=== PATIENT | male | born 1940 | race Caucasian/White ===

== ENCOUNTER 2018-04-02 18:02 | Outpatient (CLI) | payer MEDICARE, OTHER ==
--- NOTE | 2018-04-03 14:48 | Ultrasound Report ---
Procedure Date: 04/02/2018 Accession Number: [id number] / [id number] Procedure: US - Ankle Brachial Index CPT Code: FULL RESULT: EXAM: ANKLE-BRACHIAL INDICES EXAM DATE: 04/02/2018 06:42 PM. CLINICAL HISTORY: Vascular claudication. COMPARISON: None. TECHNIQUE: Systolic blood pressure measurements of bilateral brachial and posterior tibial arteries. Spectral Doppler ultrasound of bilateral posterior tibial and dorsalis pedis arteries. FINDINGS: RIGHT: HORTICULTURAL WORKER: PSV 78.4, biphasic waveform. DPA: PSV 102, biphasic waveform. Systolic pressures: Brachial Artery: 159/87. Post Tibial Artery: 173/79. Ankle/Arm Index: 1.02 LEFT: HORTICULTURAL WORKER: PSV 49, biphasic waveform. DPA: PSV 52, biphasic waveform. Systolic pressures: Brachial Artery: 177/79. Post Tibial Artery: 176/78. Ankle/Arm Index: 1.0 IMPRESSION: Normal bilateral ankle brachial indices. RADIA
== END 2018-04-02 18:03 | disposition home or self-care (01) ==
LOC: DI 18:02
PROVIDERS: ATTEND Internal Medicine
DX: I87.8 Other specified disorders of veins (principal)
CPT/HCPCS: 93922

== ENCOUNTER 2018-04-20 16:52 | Emergency (ER) | payer MEDICARE, OTHER ==
--- NOTE | 2018-04-20 17:37 | XRAY Report ---
Procedure Date: 04/20/2018 Accession Number: [id number] / [id number] Procedure: XR - Knee 3 View RT CPT Code: FULL RESULT: EXAM: RIGHT KNEE RADIOGRAPHY EXAM DATE: 04/20/2018 05:11 PM. CLINICAL HISTORY: Fall with pain and swelling to knee. COMPARISON: KNEE 3 VIEW RT 04/16/2013. TECHNIQUE: 3 views. FINDINGS: Bones: No fracture or focal bony lesion. Joints: No evidence of dislocation. 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 There is chondrocalcinosis. There is a chronic-appearing suprapatellar joint effusion. Soft Tissues: No unexpected soft tissue findings. IMPRESSION: 1. No evidence of fracture or dislocation. 2. 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 3. There is chondrocalcinosis. RADIA
--- NOTE | 2018-04-20 17:40 | XRAY Report ---
Procedure Date: 04/20/2018 Accession Number: [id number] / [id number] Procedure: XR - Ribs w/PA Chest LT CPT Code: FULL RESULT: EXAM: LEFT RIB RADIOGRAPHY EXAM DATE: 04/20/2018 05:29 PM. CLINICAL HISTORY: Fall with pain. COMPARISON: None. TECHNIQUE: 1 view of the chest and 2 views of the ribs. FINDINGS: Bones: No fracture or bone lesion. Lungs: No focal opacities. No pneumothorax. No pleural effusions. Mediastinum: Heart and mediastinal contours are unremarkable. Other: None. IMPRESSION: Negative chest and rib radiography. RADIA
[2018-04-20] MEDS ORDERED: TETANUS/DIPHTHERIA/PERTUSSIS 0.5 ML SYRINGE IM ONE (18:38)
[2018-04-20] MEDS ORDERED: HYDROcod/ACETAM 5/325 MG TABLET PO STA (18:38)
--- NOTE | 2018-04-20 18:43 | ED Physician Documentation ---
PD HPI MAJOR TRAUMA - Stated complaint Stated Complaint: GLF/BODY PX - Chief complaint Chief Complaint: Trauma Ch/Bk - History obtained from History obtained from: Patient, Family - History of Present Illness Mechanism of injury: Fell (He was on his deck today and fell through a deck board and then keeled forward hitting his left upper quadrant and left anterior chest wall on a flower pot and also his right knee which has chronic problems in it.) Review of Systems Constitutional: reports: Reviewed and negative Cardiac: reports: Reviewed and negative Respiratory: reports: Reviewed and negative PD PAST MEDICAL HISTORY - Past Medical History Cardiovascular: Hypertension Respiratory: CPAP use, Other Endocrine/Autoimmune: None GI: Diverticulitis : Benign prostate hypertrophy HEENT: None, Dental implants Psych: None Musculoskeletal: None Derm: None - Past Surgical History Past Surgical History: Yes General: Bowel surgery Ortho: Knee replacement, Shoulder arthroplasty Derm: Other - Present Medications Home Medications: Ambulatory Orders Medication Instructions Recorded Confirmed Doxazosin [Cardura] 4 mg PO DAILY 03/05/15 03/08/15 Oxycodone HCl/Acetaminophen 1 mg PO DAILY 03/08/15 03/08/15 [Oxycodone-Acetaminophen 5-325] HYDROcod/ACETAM 5/325 [Clinton 5/325] 1 - 2 ea PO Q6H PRN #10 tablet 04/20/18 - Allergies Allergies/Adverse Reactions: Allergies Allergy/AdvReac Type Severity Reaction Status Date / Time No Known Drug Allergies Allergy Verified 04/20/18 17:02 - Social History Does the pt smoke?: No Smoking Status: Never smoker Does the pt drink ETOH?: Yes Does the pt have substance abuse?: No - Immunizations Immunizations are current?: Yes - POLST Patient has POLST: No PD ED PE NORMAL - Vitals Vital signs reviewed: Yes - General General: Alert and oriented X 3, No acute distress - HEENT HEENT: PERRL, EOMI - Neck Neck: Supple, no meningeal sign, No bony TTP - Cardiac Cardiac: RRR, No murmur - Respiratory Respiratory: No respiratory distress, Clear bilaterally - Abdomen Abdomen: Other (He has mild lower rib tenderness on the right, but nothing focal. He is tender in the left upper quadrant without guarding or rebound.) - Back Back: No CVA TTP, No spinal TTP - Derm Derm: Normal color, Warm and dry - Extremities Extremities: Other (He has a shallow skin tear over the left elbow without tenderness or limited range of motion. The right knee has an effusion, but he says that is chronic and there is some mild anterior tenderness there.) - Neuro Neuro: Alert and oriented X 3, Normal speech Results - Vitals Vitals: Vital Signs - 24 hr 04/20/18 16:57 Temperature 37 C Heart Rate 78 Respiratory 18 Rate Blood Pressure 144/69 H O2 Saturation 98 Oxygen O2 Source Room air - Labs Labs: Laboratory Tests 04/20/18 04/20/18 18:49 18:49 WBC 2.6 L RBC 3.90 L Hgb 14.0 Hct 40.4 L MCV 103.7 H MCH 35.9 H MCHC 34.6 RDW 14.2 Plt Count 90 L MPV 8.1 Neut # (Auto) Not Reportable Lymph # (Auto) Not Reportable [place] # (Auto) Not Reportable Eos # (Auto) Not Reportable Baso # (Auto) Not Reportable Absolute Nucleated RBC Not Reportable Total Counted 100 Band Neuts % (Manual) 1 Abnorm Lymph % (Manual) 0 Nucleated RBC % Not Reportable Neutrophils # (Manual) 1.8 Lymphocytes # (Manual) 0.6 L Monocytes # (Manual) 0.1 Eosinophils # (Manual) 0.1 Basophils # (Manual) 0.0 Differential Comment MANUAL DIFFERENTIAL Manual Slide Review Indicated WBC Morphology NORMAL APPEARANCE Platelet Estimate DECREASED (<130,000) Platelet Morphology NORMAL APPEARANCE RBC Morph Micro Appear 2+ MACROCYTOSIS Sodium 139 Potassium 4.0 Chloride 108 Carbon Dioxide 23 Anion Gap 8.0 BUN 29 H Creatinine 1.1 Estimated GFR (MDRD) 65 L Glucose 115 H Calcium 9.5 Total Bilirubin 1.5 H AST 27 ALT 21 Alkaline Phosphatase 76 Total Protein 7.0 Albumin 4.5 Globulin 2.5 Albumin/Globulin Ratio 1.8 Lipase 25 - Rads (name of study) Left rib and chest x-ray Radiology: EMP read contemporaneously (Negative) 3 views of the right knee Radiology: EMP read contemporaneously (No fracture dislocation, there is advanced degenerative disease and chondrocalcinosis.) CT A/P Radiology: EMP read contemporaneously (NAD) PD MEDICAL DECISION MAKING - ED course ED course: 78-year-old gentleman with chest and upper abdominal injuries after fall, also the right knee. Relevant x-rays were negative but he did have persistent tenderness in the abdomen and CT scan was done to rule out Solid organ injury which was negative. Does noted to have chronic thrombocytopenia/leukopenia which is undergoing workup with his physician. - Sepsis Event Vital Signs: Vital Signs - 24 hr 04/20/18 16:57 Temperature 37 C Heart Rate 78 Respiratory 18 Rate Blood Pressure 144/69 H O2 Saturation 98 Oxygen O2 Source Room air Departure - Departure Disposition: 01 Home, Self Care Clinical Impression: Thrombocytopenia Contusion of chest wall Qualifiers: Encounter type: initial encounter Laterality: left Qualified Code(s): S20.212A - Contusion of left front wall of thorax, initial encounter Contusion of right knee Qualifiers: Encounter type: initial encounter Qualified Code(s): S80.01XA - Contusion of right knee, initial encounter Abdominal wall contusion Qualifiers: Encounter type: initial encounter Qualified Code(s): S30.1XXA - Contusion of abdominal wall, initial encounter Leukopenia Qualifiers: Leukopenia type: unspecified Qualified Code(s): D72.819 - Decreased white blood cell count, unspecified Condition: Good Record reviewed to determine appropriate education?: Yes Instructions: ED Contusion Soft Tissue, ED Contusion Chest Wall Prescriptions: HYDROcod/ACETAM 5/325 [Clinton 5/325] 1 - 2 ea PO Q6H PRN #10 tablet PRN Reason: Pain Comments: Call your doctor to arrange a follow-up appointment, make the next available appointment. In the interim, return anytime if worse or if new symptoms develop. Do not drink or drive while taking narcotic pain medication. Note that many narcotic pain relievers also contain Tylenol/acetaminophen. Please ensure that your total dose of acetaminophen from all sources does not exceed 3 g (3000 mg) per day. You may get constipated while on this medication. Take a stool softener such as Colace twice a day while you are on it. Also add an [id number] laxative such as senna or MiraLAX on any day that you do not have a bowel movement. If you received a narcotic pain medication or sedative while in the emergency department, do not drive for the next 24 hours. Your blood pressure was elevated today on check into the emergency department. This does not mean that you have hypertension, it is a common phenomenon to come to the emergency department and have elevated blood pressure. I recommend that you see your primary care physician within the week to have it rechecked when you are feeling better.
[2018-04-20 18:54] LABS: BASOPHILS % (AUTO) 0.4 %; EOSINOPHILS % (AUTO) 1.5 %; LYMPHOCYTES % (AUTO) 29.9 %; MEAN CORPUSCULAR HEMOGLOBIN 35.9 pg (27.0-31.0); MEAN CORPUSCULAR HGB CONC 34.6 g/dL (32.0-36.0); MEAN CORPUSCULAR VOLUME 103.7 fL (80.0-94.0); MEAN PLATELET VOLUME 8.1 fL (7.4-11.4); MONOCYTES % (AUTO) 3.2 %; PLT - PLATELET COUNT 90 10^3/uL (130-450); RED CELL DISTRIBUTION WIDTH 14.2 % (12.0-15.0); WHITE BLOOD COUNT 2.6 x10^3/uL (4.8-10.8)
[2018-04-20 19:00] LABS: ABNORMAL LYMPHS % (MANUAL) 0 %
[2018-04-20 19:05] LABS: ALBUMIN 4.5 g/dL (3.2-5.5); ALBUMIN/GLOBULIN RATIO 1.8 (1.0-2.2); BILIRUBIN,TOTAL 1.5 mg/dL (0.2-1.0); CALCIUM 9.5 mg/dL (8.5-10.3); CREATININE 1.1 mg/dL (0.6-1.2)
[2018-04-20 19:14] LABS: BAND NEUTROPHILS % (MANUAL) 1 %; EOSINOPHILS # (MANUAL) 0.1 10^3/uL (0-0.7); LYMPHOCYTES # (MANUAL) 0.6 10^3/uL (1.5-3.5); LYMPHOCYTES % (MANUAL) 24 %; MONOCYTES # (MANUAL) 0.1 10^3/uL (0.0-1.0); NEUTROPHILS # (MANUAL) 1.8 10^3/uL (1.5-6.6); NEUTROPHILS % (MANUAL) 70 %
[2018-04-20 19:15] LABS: DIFFERENTIAL COMMENT MANUAL DIFFERENTIAL; PLATELET ESTIMATE, MANUAL DECREASED (<130,000) (NORMAL); PLATELET MORPHOLOGY NORMAL APPEARANCE (NORMAL); RBC MORPHOLOGY (MULTIPLE) 2+ MACROCYTOSIS (NORMAL)
[2018-04-20] MEDS ORDERED: IOPAMIDOL-300 100 ML VIAL ONE (19:52)
[2018-04-20] MEDS ORDERED: IOPAMIDOL-300 100 ML VIAL IVP ONE (20:06)
[2018-04-20] MEDS ORDERED: HYDROcod/ACET 5/325 Prepack 4 PO STA (20:21)
--- NOTE | 2018-04-20 20:26 | CT Report ---
Procedure Date: 04/20/2018 Accession Number: [id number] / [id number] Procedure: CT - Abdomen/Pelvis W/ CPT Code: FULL RESULT: EXAM: CT ABDOMEN AND PELVIS EXAM DATE: 04/20/2018 08:04 PM. CLINICAL HISTORY: IV only, trauma, LUQ PAin. COMPARISONS: ABDOMEN/PELVIS W/ 03/05/2015 6:36 AM. TECHNIQUE: Routine helical CT imaging was performed through the abdomen and pelvis. IV contrast: ISOVUE 300 100mL. Enteric contrast: No. Reconstructions: Coronal and sagittal. In accordance with CT protocol optimization, one or more of the following dose reduction techniques were utilized for this exam: automated exposure control, adjustment of mA and/or KV based on patient size, or use of iterative reconstructive technique. FINDINGS: Lung Bases: Unremarkable. Liver: Stable fluid density focus within the right hepatic lobe may represent a small cyst. Gallbladder/Bile Ducts: The gallbladder is surgically absent. No significant bile duct dilatation. Spleen: Normal. Pancreas: Normal. Adrenal Glands: Normal. Kidneys: Normal. No masses or hydronephrosis. Peritoneal Cavity/Bowel: No dilated or thick-walled bowel is seen. No intraperitoneal free air or free fluid. No enlarged mesenteric or retroperitoneal lymph nodes. There is colonic diverticulosis. Patient has undergone anterior abdominal wall hernia repair. The appendix is well visualized and normal. Pelvic Organs: There is a posterior left bladder diverticulum. There is a fat-containing left inguinal hernia. No acute pelvic abnormalities are seen. Vasculature: No aneurysms or other significant abnormality. Bones: No significant abnormality. Other: None. IMPRESSION: No evidence of acute traumatic injury to the abdomen or pelvis. RADIA
[2018-04-20 20:32] VITALS: BP 149/68
== END 2018-04-20 20:40 | disposition home or self-care (01) ==
LOC: ED 16:52
DX: S80.01XA Contusion of right knee, initial encounter (principal); W17.89XA Other fall from one level to another, initial encounter; S20.212A Contusion of left front wall of thorax, initial encounter; S50.902A Unspecified superficial injury of left elbow, initial encounter; D69.6 Thrombocytopenia, unspecified; D72.819 Decreased white blood cell count, unspecified
CPT/HCPCS: 36415; 71101; 73562; 74177; 80053; 83690; 85025; 90715; 99283; A9270; Q9967

== ENCOUNTER 2018-11-14 15:42 | Outpatient (CLI) | payer MEDICARE, OTHER | END 2018-11-14 15:43 | disposition home or self-care (01) | LOC: LAB 15:42 | PROVIDERS: ATTEND Surgery | DX: R89.8 Other abnormal findings in specimens from other organs, systems and tissues (principal); D61.818 Other pancytopenia | CPT/HCPCS: 36415; 81599; 88184; 88185; 88189 ==

== ENCOUNTER 2018-11-23 06:09 | Day surgery (SDC) | payer MEDICARE, OTHER ==
[2018-11-23] MEDS ORDERED: LACTATED RINGERS 1,000 ML IV ONE ×2 (06:35→08:23)
--- NOTE | 2018-11-23 07:00 | ANESTHESIA ---
Pre-Anesthesia VS, & Labs - Diagnosis acute myeloid leukemia - Procedure Bone marrow biopsy Vital Signs: Temp Pulse Resp BP Pulse Ox 36.4 C L 68 16 153/75 H 97 11/23/18 06:35 11/23/18 06:35 11/23/18 06:35 11/23/18 06:35 11/23/18 06:35 Height 5 ft 11 in Weight (kg) 93 kg Body Mass Index 28.8 - NPO >8 hours Home Medications and Allergies Home Medications: Ambulatory Orders Cholecalciferol (Vitamin D3) [Vitamin D] 2,000 unit PO DAILY 11/21/18 Copper 2 mg PO DAILY 11/21/18 Cyanocobalamin (Vitamin B-12) [Vitamin B-12 (100mcg tab)] 100 mcg PO DAILY 11/21/18 Multivitamin [Multiple Vitamins] 1 each PO DAILY 11/21/18 Doxazosin [Cardura] 4 mg PO DAILY 03/05/15 Cholecalciferol (Vitamin D3) [Vitamin D] 2,000 unit PO DAILY 11/21/18 Copper 2 mg PO DAILY 11/21/18 Cyanocobalamin (Vitamin B-12) [Vitamin B-12 (100mcg tab)] 100 mcg PO DAILY 11/21/18 Multivitamin [Multiple Vitamins] 1 each PO DAILY 11/21/18 Allergies/Adverse Reactions: Allergies Allergy/AdvReac Type Severity Reaction Status Date / Time No Known Drug Allergies Allergy Verified 04/20/18 17:02 Anes History & Medical History - Anesthetic History Anesthesia Complications: reports: No previous complications Family history of Anesthesia Complications: Denies Family history of Malignant Hyperthermia: Denies - Medical History Cardiovascular: reports: Hypertension Pulmonary: reports: Sleep apnea, CPAP use Gastrointestinal: reports: Diverticulitis Urinary: reports: Benign prostate hypertrophy Musculoskeletal: reports: None Endocrine/Autoimmune: reports: None Blood Disorders: reports: None Skin: reports: None Smoking Status: Never smoker - Surgical History General: Bowel surgery Orthopedic: Knee replacement, Shoulder arthroplasty, Spine surgery Dermatologic: Other Exam General: Alert, Oriented x3, Cooperative Dental: WNL Mouth Openin Fingerbreadth Neck Mobility: Normal Mallampati classification: II Respiratory: Lungs clear, Normal breath sounds Cardiovascular: Regular rate Mental/Cognitive Status: Alert/Oriented X3 Plan Anesthesia Type: MAC Consent for Procedure(s) Verified and Reviewed: Yes Code Status: Attempt Resuscitation ASA classification: 3-Severe systemic disease Is this case an emergency?: No
[2018-11-23] MEDS ORDERED: BUPIVACAINE 0.25%-EPI 1:200000 PF 30 ML VIAL ONE (07:13)
[2018-11-23] MEDS ORDERED: LIDOCAINE 1% 50 ML MDV ONE (07:13)
[2018-11-23] MEDS ORDERED: KETAMINE 500 MG/10 ML VIAL IVP ONE (07:30)
[2018-11-23] MEDS ORDERED: MIDAZOLAM 2 MG/2 ML VIAL IVP ONE (07:30)
--- NOTE | 2018-11-23 07:39 | SURGERY HX AND PHYSICAL(T) ---
Surgical History & Physical - Chief Complaint/HPI Chief Complaint: None - patient is being worked up for hematologic disease History of Present Illness: This very pleasant 78-year-old male returns for repeat bone marrow aspiration/biopsy as the previous biopsy that I performed as well as the pe ripheral flow cytometry were nondiagnostic for any disease. I have been asked to repeat the core biopsy as the previous aspiration was dry. I will attempt aspirating at the sternum to see if I can obtain bone marrow in a different location and if this does not work then I will proceed with core biopsies. The patient is essentially asymptomatic and nothing is changed since last time that I seen him. - PMH/PSH/Social Hx Does the pt have a hx of MRSA?: No Eyes, Ears, Nose, Throat: Dental implants Cardiovascular: Hypertension Respiratory: Sleep apnea, CPAP use Skin: None Endocrine/Autoimmune: None Gastrointestinal: Diverticulitis Urinary: Benign prostate hypertrophy Musculoskeletal: None Blood Disorders: None Psychiatric: None General: Bowel surgery Orthopedic: Knee replacement, Shoulder arthroplasty, Spine surgery Dermatologic: Other Smoking Status: Never smoker Does the pt drink ETOH?: Yes Does the pt have substance abuse?: No - Family Hx Family Hx: Other (Not asked.) - Home Meds and Allergies Home Medications: Doxazosin [Cardura] 4 mg PO DAILY 03/05/15 Cholecalciferol (Vitamin D3) [Vitamin D] 2,000 unit PO DAILY 11/21/18 Copper 2 mg PO DAILY 11/21/18 Cyanocobalamin (Vitamin B-12) [Vitamin B-12 (100mcg tab)] 100 mcg PO DAILY 11/21/18 Multivitamin [Multiple Vitamins] 1 each PO DAILY 11/21/18 Allergies/Adverse Reactions: Allergies Allergy/AdvReac Type Severity Reaction Status Date / Time No Known Drug Allergies Allergy Verified 04/20/18 17:02 - Review of Systems Constitutional: No: Fatigue, Fever, Chills, Malaise HEENT: No: Headaches Skin: No: Cyanosis Cardiac: No: AFIB Respiratory: No: Shortness of breath Gastrointestinal: No: Nausea, Vomiting, Abdominal pain Musculoskeletal: No: Muscle pain, Back pain Hematologic: Anemia Psychiatric: No: Depression, Anxiety - Vital Signs Heart Rate: 68 Blood Pressure: 153/75 Temperature: 36.4 C Respiratory Rate: 16 O2 Saturation: 97 Weight (kg): 93 kg Height: 1.8 m - Physical Exam General Appearance: positive: No acute distress Eyes Bilatera: positive: No lid inflammation, Conjunctivae nml, No scleral icterus ENT: positive: No signs of dehydration Neck: positive: Trachea midline Respiratory: positive: Chest non-tender, No respiratory distress, Breath sounds nml Cardiovascular: positive: Regular rate & rhythm, No murmur Abdomen: positive: Non-tender, Nml bowel sounds, No distention Skin: positive: Color nml Extremities: positive: Non-tender, Nml appearance Neurologic/Psychiatric: positive: Oriented x3, Motor nml, Sensation nml, Mood/affect nml - Patient Review Patient Review: Problems were reviewed with the patient during this visit. Medications were reviewed with the patient during this visit. Allergies were reviewed this patient during this visit. Pertinent Tests Reviewed: All pertitent test for this patient were reviewed. - Assessment & Plan Assessment and Plan: Bone marrow aspiration and/or biopsy. The indications, procedure, alternatives and risks including but not limited to infection, bleeding, nerve injury, and were fully explained to the patient and all questions were fully answered. Verbal and written consent was obtained. I also asked the patient to let me know if there is any way we can make his stay at [facility] more comfortable and he stated that he would let me know. 45 minutes of [id number] time spent with the patient, the majority of which was spent in discussion, coordination of care, and completion of the requisite paperwork
[2018-11-23] MEDS ORDERED: BUPIVACAINE 0.25%-EPI 1:200000 PF 10 ML VIAL SUBQ ONE ×2 (07:59)
--- NOTE | 2018-11-23 08:36 | OPERATIVE REPORT ---
Operative Report - General Procedure Date: 11/23/18 Planned Procedure: Bone marrow aspiration and if negative multiple bone marrow core biopsies Pre-Op Diagnosis: Suspicion of acute myeloid leukemia Procedure Performed: Attempted sternal bone marrow aspirationdry Attempted right posterior superior iliac spine aspirationdry Core bone biopsy x2 right posterior superior iliac spine Post Op Diagnosis: Same - Procedure Note Primary Surgeon: Eric Carlisle MD Anesthesia Provider: Neil Gonsales CRNA Anesthesia Technique: Local (30 mL of half percent Marcaine), MAC Estimated Blood Loss (mL): 2 Drain/Tube Type: Other (None.) Complications: None. - Other Other Information/Narrative: OPERATIVE DESCRIPTION/REPORT: The indication for the procedure is suspicion of acute myeloid leukemia. Previous aspiration was dry. Previous core biopsies were insufficient for diagnosis. Peripheral flow cytometry was insufficient for diagnosis. After verbal and written informed consent was obtained detailing the risks of infection, bleeding requiring transfusion with its risks, nerve injury, and , the patient was placed in LEFT lateral decubitus position on the bed taking care to avoid pressure points. The patient was prepped and draped in the usual sterile manner. A "time in" then confirmed that the patient was identified with 3 identifiers (name, date and medical record number), the history and physical was in the chart, the signed consent confirming the procedure was in the chart, the patient was in the correct position, the aforementioned prophylactic measures were in place or given, we had the correct personnel and equipment to complete the procedure and that everyone in the room was given an opportunity to express any concerns. With the agreement of everyone in the room, we proceeded with the procedure. The patient's sternum was prepped and draped in a sterile manner. The skin as well as the surface of the bone was anesthetized using half percent Marcaine. In a very careful manner an 18-gauge spinal needle was introduced using a rotational motion into the right side of the sternum and aspiration was negative for any bone marrow. This is similar to the finding on the right hip. In short, it was a dry tap. As a result, and per our plan, the patient was placed on his left side in preparation of obtaining core biopsies of the right superior posterior iliac spine. The RIGHT posterior superior iliac spine was prepped and draped in a sterile fashion. The crest of the posterior superior iliac spine was located, and the skin as well as the surface of the bone was anesthetized with 1/2% marcaine. An 18 gauge spinal needle was introduced using rotational motion, and bone marrow aspirate was obtained without any difficulty. Adequate spicules were NOT noted on the watch glass. The small amount of fluid was sent for pathologic evaluation. As a result and pursuant to our plan it was clear that a core would be needed. The area was then re-injected with 1/2% marcaine to ensure patient comfort and a J-style needle tip Jamshidi needle was inserted into the RIGHT superior iliac spine using a rotational motion with the stylet until the bone was reached and then without the stylet in place. Continued rotational motion placed the needle and gentle placement if the stylet into the needle confirmed a core was being obtained. When there was an adequate core the rotational motion was changed to gentle [id number] motion and then rotational motion was employed to remove the needle. The core was then delivered from the needle using the supplied plastic funnel and pusher wire. The core was sent for pathologic evaluation. I have been asked by the pathologist as well as the oncologist to obtain several core biopsies in this process was repeated again with the return of a good core specimen. Pressure was held for 3 minutes and a sterile dressing was applied. I then had the patient lay on a rolled towel at the needle insertion site for 15 minutes to minimize any bruising or bleeding. The bone marrow biopsy was obtained without any apparent complications. The patient having tolerated the procedure well was then discharged home instructed to take Acetaminophen for any local discomfort and to call with any questions/concerns. Due to the fact that multiple core biopsies were done and several signs I did give the patient a prescription for 5 Minford 5/325 mg tablets. It is okay for the patient to board a plane tomorrow for a trip to [place]. Note this procedure was performed in the neonatal intensive care nurse unit in the presence of an [employer] hr[employer] consultant . Shea disclaimer: This document was created in part using voice recognition technology. Because of the inherent limitations of the system ([employer]'s [employer] user manual states that the licensee understands that speech recognition is a statistical process and that recognition errors are inherent in the process), occasional same sounding word substitutions and grammatical errors do occur and persist despite proofreading. Please read this document for context.
[2018-11-23 08:57] VITALS: BP 157/81
== END 2018-11-23 06:10 | disposition home or self-care (01) ==
LOC: SDS 06:09
PROVIDERS: ATTEND Surgery
PROC: 07DR3ZX Extraction of Iliac Bone Marrow, Percutaneous Approach, Diagnostic (ICD-10-PCS; principal; 2018-11-23 07:30)
DX: Z12.89 Encounter for screening for malignant neoplasm of other sites (principal); D61.818 Other pancytopenia; I10 Essential (primary) hypertension; G47.30 Sleep apnea, unspecified; N40.0 Benign prostatic hyperplasia without lower urinary tract symptoms
CPT/HCPCS: 38221; J7120

== ENCOUNTER 2019-02-24 14:13 | Emergency (ER) | payer MEDICARE, OTHER ==
[2019-02-24 14:22] VITALS: BP 120/74
[2019-02-24 15:12] LABS: BILIRUBIN,URINE NEGATIVE (NEGATIVE); GLUCOSE, URINE (UA) NEGATIVE (NEGATIVE); KETONES,URINE (UA) NEGATIVE (NEGATIVE); LEUKOCYTE ESTERASE, URINE NEGATIVE (NEGATIVE); NITRITE,URINE NEGATIVE (NEGATIVE); OCCULT BLOOD,URINE NEGATIVE (NEGATIVE); PROTEIN,URINE NEGATIVE (NEGATIVE); UROBILINOGEN,URINE 0.2 (NORMAL) E.U./dL (NORMAL)
[2019-02-24 15:14] LABS: CLARITY,URINE CLEAR (CLEAR)
[2019-02-24] MEDS ORDERED: PHENAZOPYRIDINE 100 MG TABLET PO STA (15:36)
--- NOTE | 2019-02-24 15:44 | ED Physician Documentation ---
History of Present Illness - Stated complaint Stated Complaint: MALE - Chief complaint Chief Complaint: UTI - History obtained from History obtained from: Patient - History of Present Illness Timing: How many days ago (several) Pain level max: 3 Pain level now: 0 - Additonal information Additional information: 78-year-old male presents to the emergency department With dysuria present for the past few days. Had a recent UTI. No fevers. No chills. Worse with urination. Nothing makes it better. Review of Systems Constitutional: denies: Fever, Chills GI: denies: Vomiting : reports: Dysuria, Frequency, Hesitancy Skin: denies: Rash Musculoskeletal: denies: Neck pain, Back pain Neurologic: denies: Headache PD PAST MEDICAL HISTORY - Past Medical History Past Medical History: Yes Cardiovascular: Hypertension Respiratory: Sleep apnea, CPAP use Endocrine/Autoimmune: None GI: Diverticulitis : Benign prostate hypertrophy HEENT: Dental implants Psych: None Musculoskeletal: None Derm: None Other Past Medical History: early acute leukemia - Past Surgical History Past Surgical History: Yes General: Bowel surgery Ortho: Knee replacement, Shoulder arthroplasty, Spine surgery Derm: Other - Present Medications Home Medications: Ambulatory Orders Medication Instructions Recorded Confirmed Doxazosin [Cardura] 4 mg PO DAILY 03/05/15 02/19/19 Cholecalciferol (Vitamin D3) 2,000 unit PO DAILY 11/21/18 02/19/19 [Vitamin D] Cyanocobalamin (Vitamin B-12) 100 mcg PO DAILY 11/21/18 02/19/19 [Vitamin B-12 (100mcg tab)] Multivitamin [Multiple Vitamins] 1 each PO DAILY 11/21/18 02/19/19 Allopurinol 300 mg PO DAILY 12/31/18 02/19/19 Fluconazole [Diflucan] 400 mg PO DAILY 12/31/18 02/19/19 Valacyclovir HCl [Valtrex] 500 mg PO Q12H 12/31/18 02/19/19 Docusate Sodium 1 cap PO DAILY 01/28/19 02/19/19 Prevagen 1 cap PO DAILY 01/28/19 02/19/19 Venetoclax [Venclexta] 100 mg PO DAILY 01/29/19 02/19/19 Senna [Senokot] 8.6 mg PO DAILY PRN 02/04/19 02/19/19 Ondansetron HCl [Zofran] 8 mg PO Q8H PRN #30 tablet 02/05/19 Phenazopyridine HCl [Pyridium] 200 mg PO TID PRN #6 tablet 02/24/19 - Allergies Allergies/Adverse Reactions: Allergies Allergy/AdvReac Type Severity Reaction Status Date / Time No Known Drug Allergies Allergy Verified 02/19/19 14:28 - Social History Does the pt smoke?: No Smoking Status: Never smoker Does the pt drink ETOH?: Yes Does the pt have substance abuse?: No - Immunizations Immunizations are current?: Yes - POLST Patient has POLST: No PD ED PE NORMAL - Vitals Vital signs reviewed: Yes - General General: Alert and oriented X 3, No acute distress - HEENT HEENT: Moist mucous membranes - Neck Neck: Supple, no meningeal sign - Cardiac Cardiac: RRR - Respiratory Respiratory: No respiratory distress, Clear bilaterally - Abdomen Abdomen: Soft, Non tender, Non distended - Back Back: No CVA TTP, No spinal TTP - Derm Derm: Warm and dry - Neuro Neuro: Alert and oriented X 3 Results - Vitals Vitals: Vital Signs - 24 hr 02/24/19 14:18 Temperature 36.9 C Heart Rate 64 Respiratory 16 Rate Blood Pressure 120/74 O2 Saturation 100 Oxygen O2 Source Room air - Labs Labs: Laboratory Tests 02/24/19 14:45 Urine Color YELLOW Urine Clarity CLEAR Urine pH 6.0 Ur Specific [place] 1.015 Urine Protein NEGATIVE Urine Glucose (UA) NEGATIVE Urine Ketones NEGATIVE Urine Occult Blood NEGATIVE Urine Nitrite NEGATIVE Urine Bilirubin NEGATIVE Urine Urobilinogen 0.2 (NORMAL) Ur Leukocyte Esterase NEGATIVE Ur Microscopic Review NOT INDICATED Urine Culture Comments NOT INDICATED PD MEDICAL DECISION MAKING - ED course Complexity details: reviewed results, re-evaluated patient, considered differential, d/w patient ED course: 78-year-old male male with myelodysplastic syndrome and dysuria. Will place on Pyridium. No UTI. Will follow up with his doctor tomorrow for repeat evaluatio n. Patient is well-appearing, nontoxic. Afebrile. Patient counseled regarding signs and symptoms for which I believe and urgent re-evaluation would be necessary. Patient with good understanding of and agreement to plan and is comfortable going home at this time This document was made in part using voice recognition software. While efforts are made to proofread this document, sound alike and grammatical errors may occur. Departure - Departure Disposition: 01 Home, Self Care Clinical Impression: Dysuria Condition: Good Instructions: ED Dysuria Uncertain Cause Follow-Up: Moy Schafer MD [Primary Care Provider] - Within 1 week Prescriptions: Phenazopyridine HCl [Pyridium] 200 mg PO TID PRN #6 tablet PRN Reason: dysuria Comments: The cause of your symptoms is unclear, but may be related to inflammation in your bladder. Will trial you on Pyridium and have you follow-up with your doctor. Discharge Date/Time: 02/24/19 15:51
== END 2019-02-24 15:51 | disposition home or self-care (01) ==
LOC: ED 14:13
DX: R30.0 Dysuria (principal); R35.0 Frequency of micturition; R39.11 Hesitancy of micturition; D46.9 Myelodysplastic syndrome, unspecified; I10 Essential (primary) hypertension
CPT/HCPCS: 81003; 99283; A9270; 80048; 81001; 85025; 87086

== ENCOUNTER 2019-03-25 08:52 | Outpatient (CLI) | payer MEDICARE, OTHER ==
[2019-03-25 09:28] LABS: HGB - HEMOGLOBIN 11.7 g/dL (14.0-18.0); RED CELL DISTRIBUTION WIDTH 14.2 % (12.0-15.0)
[2019-03-25 09:30] LABS: BASOPHILS % (AUTO) 1.5 %; LYMPHOCYTES # (AUTO) 0.5 10^3/uL (1.5-3.5); LYMPHOCYTES % (AUTO) 72.3 %; MEAN CORPUSCULAR HEMOGLOBIN 37.6 pg (27.0-31.0); MEAN CORPUSCULAR HGB CONC 33.1 g/dL (32.0-36.0); MEAN CORPUSCULAR VOLUME 113.5 fL (80.0-94.0); MEAN PLATELET VOLUME 9.6 fL (7.4-11.4); MONOCYTES % (AUTO) 6.2 %; PLT - PLATELET COUNT 218 10^3/uL (130-450); RED BLOOD COUNT 3.11 10^6/uL (4.70-6.10)
[2019-03-25 09:40] LABS: BILIRUBIN,URINE NEGATIVE (NEGATIVE); GLUCOSE, URINE (UA) NEGATIVE (NEGATIVE); KETONES,URINE (UA) NEGATIVE (NEGATIVE); LEUKOCYTE ESTERASE, URINE TRACE (NEGATIVE); NITRITE,URINE POSITIVE (NEGATIVE); OCCULT BLOOD,URINE NEGATIVE (NEGATIVE); PH,URINE 5.5 PH (5.0-7.5); PROTEIN,URINE 100 mg/dL (NEGATIVE); UROBILINOGEN,URINE 4 E.U./dL (NORMAL)
[2019-03-25 09:41] LABS: CLARITY,URINE CLEAR (CLEAR)
[2019-03-25 09:55] LABS: RBC MORPHOLOGY (MULTIPLE) 2+ ANISOCYTOSIS (NORMAL)
[2019-03-25 09:56] LABS: NEUTROPHILS # (AUTO) 0.1 10^3/uL (1.5-6.6); WHITE BLOOD COUNT 0.7 x10^3/uL (4.8-10.8)
[2019-03-25 10:07] LABS: BACTERIA,URINE Rare /HPF (None Seen); RBC,URINE 0-5 /HPF (0-5); SQUAMOUS EPITHELIAL CELL,UR RARE Squamous (<= Few)
== END 2019-03-25 08:53 | disposition home or self-care (01) ==
LOC: LAB 08:52
PROVIDERS: ATTEND Specialist
DX: R39.9 Unspecified symptoms and signs involving the genitourinary system (principal)
CPT/HCPCS: 36415; 81001; 81003; 85025; 87086

== ENCOUNTER 2019-08-08 07:34 | Emergency (ER) | payer MEDICARE, OTHER ==
--- NOTE | 2019-08-08 07:42 | ED Physician Documentation ---
PD HPI CHEST PAIN - Stated complaint Stated Complaint: CP - History obtained from History obtained from: Patient - History of Present Illness Timing - onset: Today, Other (4:30am) Timing - onset during: Rest Timing - duration: Hours Timing - details: Abrupt onset Severity Comments: severe Quality: Pressure, Sharp Location: Left chest Radiation: Left upper extremity (L shoulder) Improved by: Nothing Worsened by: Other (nothing) Associated symptoms: Shortness of air, Nausea. No: Diaphoresis, Vomiting, Feeling faint / dizzy, General Weakness, Palpitations, Cough Similar symptoms before: Has not had sx before Recently seen: Clinic (patient is seen at the [facility] for chemotherapy, he has leukemia diagnosed in February) - Treatment prior to arrival Treatment prior to arrival: none - Additional information Additional information: No known hx of cardiac disease Review of Systems Ten Systems: 10 systems reviewed and negative Constitutional: denies: Fever Cardiac: reports: Chest pain / pressure Respiratory: reports: Dyspnea GI: reports: Nausea. denies: Vomiting : reports: Reviewed and negative Skin: reports: Reviewed and negative Musculoskeletal: reports: Extremity pain (L shoulder pain). denies: Neck pain Neurologic: denies: Focal weakness, Numbness Immunocompromised: reports: Chemotherapy (for leukemia) PD PAST MEDICAL HISTORY - Past Medical History Past Medical History: Yes Cardiovascular: Hypertension Respiratory: Sleep apnea, CPAP use Endocrine/Autoimmune: None GI: Diverticulitis : Benign prostate hypertrophy HEENT: Dental implants Psych: None Musculoskeletal: None Derm: None - Past Surgical History Past Surgical History: Yes General: Bowel surgery Ortho: Knee replacement, Shoulder arthroplasty, Spine surgery Derm: Other - Present Medications Home Medications: Ambulatory Orders Medication Instructions Recorded Confirmed Doxazosin [Cardura] 4 mg PO DAILY 03/05/15 07/23/19 Valacyclovir HCl [Valtrex] 500 mg PO Q12H 12/31/18 07/23/19 Prevagen 1 cap PO DAILY 01/28/19 07/23/19 Venetoclax [Venclexta] 100 mg PO DAILY 01/29/19 07/23/19 Senna [Senokot] 8.6 mg PO DAILY PRN 02/04/19 07/23/19 Levofloxacin [Levaquin] 750 mg PO DAILY #30 tablet 07/23/19 07/23/19 Posaconazole 300 mg PO DAILY #30 tablet.dr YEE 07/23/19 07/23/19 - Allergies Allergies/Adverse Reactions: Allergies Allergy/AdvReac Type Severity Reaction Status Date / Time No Known Drug Allergies Allergy Verified 07/23/19 15:08 - Social History Does the pt smoke?: No Smoking Status: Never smoker Does the pt drink ETOH?: Yes Does the pt have substance abuse?: No - Immunizations Immunizations are current?: Yes - POLST Patient has POLST: No PD ED PE NORMAL - Vitals Vital signs reviewed: Yes - General General: Alert and oriented X 3, Other (appears uncomfortable ) - HEENT HEENT: Atraumatic, Moist mucous membranes, Pharynx benign - Neck Neck: Supple, no meningeal sign, No JVD - Cardiac Cardiac: RRR, No murmur, No gallop, No rub - Respiratory Respiratory: Clear bilaterally, Other (tachypneic) - Abdomen Abdomen: Soft, Non tender, Non distended - Male Male : Deferred - Derm Derm: Normal color, Warm and dry, No rash - Extremities Extremities: No deformity, No tenderness to palpate, Normal ROM s pain, No edema, No calf tenderness / cord - Neuro Neuro: Alert and oriented X 3 Eye Opening: Spontaneous Motor: Obeys Commands Verbal: Oriented GCS Score: 15 - Psych Psych: Normal mood, Normal affect PD ED PE EXPANDED - Rectal Rectal: Heme Occult Neg - QC+ Results - Vitals Vitals: Vital Signs - 24 hr 08/08/19 08/08/19 07:42 08:05 Temperature 37.0 C Heart Rate 93 103 H Respiratory 22 24 Rate Blood Pressure 157/107 H 124/74 O2 Saturation 100 100 Oxygen O2 Source Room air - EKG (time done) 07:41 Rate: Rate (enter#) (94) Rhythm: Other (ectopic atrial rhythm, regular ) [place]: Normal Intervals: Normal CT QRS: Normal Ischemia: ST elevation c/w ischemia Compare to prior EKG: Old EKG unavailable Computer interpretation: Agree with computer - Labs Labs: Laboratory Tests 08/08/19 08/08/19 07:50 07:50 WBC 3.1 L RBC 3.89 L Hgb 13.5 L Hct 38.3 L MCV 98.5 H MCH 34.7 H MCHC 35.2 RDW 16.7 H Sodium 138 Potassium 3.4 L Chloride 108 Carbon Dioxide 20 L Anion Gap 10.0 BUN 17 Creatinine 1.2 Estimated GFR (MDRD) 58 L Glucose 109 H Calcium 9.4 - Rads (name of study) CXR Radiology: EMP read indepedently PD MEDICAL DECISION MAKING - ED course Complexity details: reviewed results, re-evaluated patient, considered differential, d/w patient, d/w family ED course: 79 y/o M with hx and exam as documented, EKG concerning for STEMI given aspi rin, nitroglycerin Repeated EKG within 10 minutes given artifact present to confirm which was again concerning Called STEMI alert and initiated transfer to [facility]. Given nitroglycerin with improvement of chest pain. Heparin drip, bolus and Plavix initiated. Pt transferred and accepted by Dr. Raman at [facility]. - Critical Care Time(min): 25 Time Includes: Direct patient care, Review records, Reassess patient, Document care, Coordinate care, Medical consult Data interpretation: Labs, CXR, Cardiac output Procedures excluded from critical care time: EKG Departure - Departure Disposition: 02 Transfer Acute Care Hosp Clinical Impression: STEMI (ST elevation myocardial infarction) Qualifiers: Involved coronary artery: unspecified coronary artery Qualified Code(s): I21.3 - ST elevation (STEMI) myocardial infarction of unspecified site
[2019-08-08] MEDS ORDERED: NITROGLYCERIN SL 0.4 MG TABLET SL STA (07:55)
[2019-08-08] MEDS ORDERED: ASPIRIN CHEW 81 MG TABLET PO STA (07:55)
[2019-08-08 07:59] LABS: BASOPHILS % (AUTO) 0.6 %; HGB - HEMOGLOBIN 13.5 g/dL (14.0-18.0); LYMPHOCYTES # (AUTO) 0.6 10^3/uL (1.5-3.5); LYMPHOCYTES % (AUTO) 20.3 %; MEAN CORPUSCULAR HEMOGLOBIN 34.7 pg (27.0-31.0); MEAN CORPUSCULAR HGB CONC 35.2 g/dL (32.0-36.0); MEAN CORPUSCULAR VOLUME 98.5 fL (80.0-94.0); MONOCYTES # (AUTO) 0.1 10^3/uL (0.0-1.0); MONOCYTES % (AUTO) 2.6 %; NEUTROPHILS # (AUTO) 2.4 10^3/uL (1.5-6.6); NEUTROPHILS % (AUTO) 76.2 %; PLT - PLATELET COUNT 64 10^3/uL (130-450); RED BLOOD COUNT 3.89 10^6/uL (4.70-6.10); RED CELL DISTRIBUTION WIDTH 16.7 % (12.0-15.0); WHITE BLOOD COUNT 3.1 x10^3/uL (4.8-10.8)
[2019-08-08] MEDS ORDERED: HEPARIN 25000UNITS/500ML (D5W) 25,000 UNIT/500 ML BAG IV STA (08:05)
[2019-08-08] MEDS ORDERED: CLOPIDOGREL 300 MG TABLET PO STA (08:06)
[2019-08-08 08:08] LABS: CALCIUM 9.4 mg/dL (8.5-10.3); CREATININE 1.2 mg/dL (0.6-1.2)
[2019-08-08 08:15] VITALS: BP 119/74
--- NOTE | 2019-08-08 08:15 | XRAY Report ---
Reason: chest pain Procedure Date: 08/08/2019 Accession Number: [id number] / [id number] Procedure: XR - Chest 1 View X-Ray CPT Code: 97567 Final Report FULL RESULT: EXAM: CHEST RADIOGRAPHY EXAM DATE: 08/08/2019 08:03 AM. CLINICAL HISTORY: Chest pains. Shortness of breath. COMPARISON: XR CHEST PA AND LAT 01/06/2011 1:01 PM. TECHNIQUE: 1 view. FINDINGS: Lungs/Pleura: No focal opacities evident. No pleural effusion. Costophrenic angles partly excluded. Mediastinum: Heart size is normal. Aorta is mildly tortuous. Other: Degenerative changes of both shoulders and the thoracic spine. IMPRESSION: 1. No acute disease in the chest. RADIA
[2019-08-08 08:23] LABS: DIFFERENTIAL COMMENT MANUAL=AUTO DIFF; PLATELET ESTIMATE, MANUAL DECREASED (<130,000) (NORMAL); PLATELET MORPHOLOGY NORMAL APPEARANCE (NORMAL); RBC MORPHOLOGY (MULTIPLE) 1+ POLYCHROMASIA (NORMAL)
[2019-08-08] MEDS ORDERED: HEPARIN 25000UNITS/500ML (D5W) 25,000 UNIT/500 ML BAG IV SCH (09:00)
== END 2019-08-08 08:28 | disposition short-term general hospital (02) ==
LOC: ED 07:34
DX: I21.3 ST elevation (STEMI) myocardial infarction of unspecified site (principal); I49.3 Ventricular premature depolarization; I10 Essential (primary) hypertension; C95.90 Leukemia, unspecified not having achieved remission
CPT/HCPCS: 36415; 71045; 80048; 84484; 85025; 93005; 96374; 99284; 99285; A9270

== ENCOUNTER 2019-08-08 08:33 | Outpatient (CLI) | payer MEDICARE, OTHER | END 2019-08-08 08:34 | disposition short-term general hospital (02) | LOC: EMS 08:33 | PROVIDERS: ATTEND Surgery | DX: I21.3 ST elevation (STEMI) myocardial infarction of unspecified site (principal) | CPT/HCPCS: A0425; A0426 ==

== ENCOUNTER 2020-01-06 10:52 | Emergency (ER) | payer MEDICARE, OTHER ==
--- NOTE | 2020-01-06 11:56 | XRAY Report ---
Reason: hand pain/swelling Procedure Date: 01/06/2020 Accession Number: [id number] / [id number] Procedure: XR - Hand 3 View LT CPT Code: Final Report FULL RESULT: EXAM: LEFT HAND RADIOGRAPHY EXAM DATE: 01/06/2020 11:42 AM. CLINICAL HISTORY: Hand pain/swelling. COMPARISON: None. TECHNIQUE: 3 views. FINDINGS: Bones: No acute fracture or focal osseous destruction. Joints: No dislocation. Degenerative changes are present, most notably with moderate to severe changes at the first carpometacarpal joint and DIP joints of the second and third fingers where there is narrowing, subchondral sclerosis with subchondral cysts and osteophyte formation. Other degenerative changes also present that are more mild. Soft Tissues: Soft tissue swelling. No radiopaque foreign body. IMPRESSION: 1. No acute fracture or dislocation identified. 2. Soft tissue swelling appears most prominent at the dorsal aspect of the hand. 3. Degenerative changes appear most prominent at the first carpometacarpal joint and DIP joints, as described above. RADIA
--- NOTE | 2020-01-06 12:21 | ED Physician Documentation ---
PD HPI UPPER EXT INJURY - Stated complaint Stated Complaint: L HAND SWELLING - Chief complaint Chief Complaint: Ext Problem - History obtained from History obtained from: Patient (This is an 79-year-old gentleman with myelodysplastic syndrome who had been sweeping his deck and then overnight last night his left hand became very swollen and somewhat painful. The pain is not too bad though. He denies systemic symptoms such as fevers, chills, body aches. There was no specific injury other than the sweeping.) Review of Systems Constitutional: denies: Fever, Chills, Myalgias Nose: reports: Reviewed and negative Cardiac: reports: Reviewed and negative PD PAST MEDICAL HISTORY - Past Medical History Past Medical History: Yes Cardiovascular: Hypertension Respiratory: Sleep apnea, CPAP use Endocrine/Autoimmune: None GI: Diverticulitis : Benign prostate hypertrophy HEENT: Dental implants Psych: None Musculoskeletal: None Derm: None - Past Surgical History Past Surgical History: Yes General: Bowel surgery Ortho: Knee replacement, Shoulder arthroplasty, Spine surgery Derm: Other - Present Medications Home Medications: Ambulatory Orders Medication Instructions Recorded Confirmed Doxazosin [Cardura] 4 mg PO DAILY 03/05/15 12/16/19 Valacyclovir HCl [Valtrex] 500 mg PO Q12H 12/31/18 12/16/19 Senna [Senokot] 8.6 mg PO DAILY PRN 02/04/19 12/16/19 Aspirin 81 mg PO DAILY 08/26/19 12/16/19 Atorvastatin Calcium 1 tab PO DAILY 08/26/19 12/16/19 Clopidogrel [Plavix] 75 mg PO DAILY 08/26/19 12/16/19 Metoprolol Tartrate 12.5 mg PO DAILY 08/26/19 12/16/19 Ondansetron [Ondansetron Odt] 8 mg PO Q8H PRN 09/10/19 12/16/19 - Allergies Allergies/Adverse Reactions: Allergies Allergy/AdvReac Type Severity Reaction Status Date / Time No Known Drug Allergies Allergy Verified 01/06/20 11:02 - Social History Does the pt smoke?: No Smoking Status: Never smoker Does the pt drink ETOH?: Yes Does the pt have substance abuse?: No - Immunizations Immunizations are current?: Yes - POLST Patient has POLST: No PD ED PE NORMAL - Vitals Vital signs reviewed: Yes - General General: Alert and oriented X 3, No acute distress - Extremities Extremities: Other (The dorsum of the left hand is swollen, he seems most tender over the radiocarpal joints and has some warmth there but no redness. He does have significant pain with both flexion and extension as well as inversion and eversion of the wrist. Also with axial loading of the thumb.) - Neuro Neuro: Alert and oriented X 3, Normal speech Results - Vitals Vitals: Vital Signs - 24 hr 01/06/20 10:59 Temperature 36.2 C L Heart Rate 61 Respiratory 16 Rate Blood Pressure 136/58 H O2 Saturation 99 Oxygen O2 Source Room air - Labs Labs: Laboratory Tests 01/06/20 01/06/20 10:50 12:28 ESR 65 H C-Reactive Protein 6.9 H PD MEDICAL DECISION MAKING - ED course ED course: 79-year-old gentleman with hand pain, some concern for an infectious etiology. Its not red but it is a little warm and seems to be focused over the radiocarpal joint. He had labs done actually on the way in, outpatient labs. His total white count was 1.7 and his platelets are 41. He is always pancytopenic from the myelodysplastic syndrome. His usual white count is around 2, so this seems pretty much at its usual. His platelets are actually a little better than they have been. Hemoglobin is 9.4, hematocrit 27.3. These are pretty much at his baseline as well. Chemistries were relatively unremarkable, alk phos was at 258, BUN at 25. These seem to be chronic abnormalities. His ESR and CRP were checked, although they are modestly elevated, I do not think they are in a range consistent with a septic joint. He is advised to return tomorrow if not better, anytime for new or worsening symptoms. Elevation is advised. Departure - Departure Disposition: 01 Home, Self Care Clinical Impression: Hand swelling Qualifiers: Laterality: left Qualified Code(s): M79.89 - Other specified soft tissue disorders Condition: Good Record reviewed to determine appropriate education?: Yes Instructions: ED Joint Pain Comments: It appears today that your hand swelling is likely from overuse. Please return immediately if you develop increased pain, fevers, chills, or are not improving tomorrow.
[2020-01-06 13:02] VITALS: BP 130/60
== END 2020-01-06 13:01 | disposition home or self-care (01) ==
LOC: ED 10:52
DX: M79.89 Other specified soft tissue disorders (principal); I10 Essential (primary) hypertension; D46.9 Myelodysplastic syndrome, unspecified
CPT/HCPCS: 36415; 85651; 86140; 99283; 99284

== ENCOUNTER 2020-01-31 13:55 | Outpatient (CLI) | payer MEDICARE, OTHER ==
--- NOTE | 2020-02-01 15:20 | XRAY Report ---
Reason: SPRAIN RT THUMB Procedure Date: 01/31/2020 Accession Number: [id number] / [id number] Procedure: XR - Finger(s) RT CPT Code: Final Report FULL RESULT: EXAM: RIGHT FIRST DIGIT RADIOGRAPHY EXAM DATE: 01/31/2020 02:11 PM. CLINICAL HISTORY: SPRAIN RT THUMB. Right thumb pain x3 days. COMPARISON: No prior images of the right first digit. HAND 3 VIEW LT 01/06/2020 11:25 AM. TECHNIQUE: 3 views. FINDINGS: Bones: Normal. No fracture or bone lesion. Joints: No subluxation or dislocation. There are moderate to severe degenerative changes at the first carpometacarpal joint, and moderate degenerative changes at the interphalangeal joint of the thumb. Soft Tissues: Unremarkable. No focal soft tissue swelling appreciated. IMPRESSION: 1. No fracture or other acute osseous abnormality of the right thumb. 2. 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 There is moderate degenerative osteoarthritis at the interphalangeal joint of the thumb. RADIA
== END 2020-01-31 13:56 | disposition home or self-care (01) ==
LOC: DI 13:55
PROVIDERS: ATTEND Family Medicine
DX: M18.11 Unilateral primary osteoarthritis of first carpometacarpal joint, right hand (principal); M19.041 Primary osteoarthritis, right hand
CPT/HCPCS: 73140

== ENCOUNTER 2020-07-28 12:17 | Outpatient (CLI) | payer MEDICARE, OTHER ==
--- NOTE | 2020-07-28 15:58 | CONSULTATION NOTE ---
Palliative Care Consultation - Referral Referring Provider: Dr. David Alexander Time of Visit: 9593-2158 Referral setting: [facility] [place] Referral Reason: MCI/MDS relapsed/Goals of care - Information Sources Records reviewed: Previous records reviewed History/Review of Systems obtained from: Patient, Family ( Desiree present) Exam limitations: Clinical condition (patient with STM issues; fluctuating confusion) - History of Present Illness Brief History of Present Illness: This is an 80-year-old gentleman who was originally diagnosed with pancytopenia in 02/2015. He had been having chronic leukopenia and thrombocytopenia and fluctuating anemia with a work-up through his primary care, and transition to oncology. 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 He did receive induction of Vidaza/Ventak last until 04/2019 for which she had a complete bone marrow biopsy remission. He was on maintenance Vidaza/been to class at low dose from 08/2019 to 01/2020, and then took a break, their perception is he was "in remission". He was having increased fatigue, and given the complexity of his current care, he is starting back on Vidaza, will receive this monthly. Patient's understanding of his diseases he has "leukemia", that he is getting treated but understands is not for cure. He is hoping for some improvement both in quality and quantity of life. His care has been complicated by his MRI he had in July 2019, which included placement of a coronary stent. His also has had complications of her cardiac status through this last year, which has made things more difficult for them and as far as managing overall. They do have very supportive children, 2 daughters and son, who are very much wanting them to move closer to them to have better support. Patient has developed significant mild cognitive impairment, which has accelerated over the last 6 to 9 months, patient does have some awareness and frustration with this, has attributed this somewhat to "chemo brain", but does present with more significant symptoms more aligned with mild cognitive impairment. Patient overall has low symptom burden, has not lost weight, denies any pain, denies depression or anxiety, is disappointed he is back to frequent treatments, and is experiencing some side effects as far as rash and tenderness in his abdomen. He did have some mild nausea last night, but no vomiting. Patient has chosen active treatment over hospice care, he does feel currently his quality of life is good, though certainly his functional and cognitive status have been declining. He is hoping for the best, but is open to further discussion and planning around advance care directives. Medical/Surgical History - Past Medical History Cardiovascular: reports: Hypertension, [place] Respiratory: reports: Sleep apnea, CPAP use Neuro: Other (MCI) Neuro: reports: Other (vertigo) Endocrine/Autoimmune: reports: None GI: reports: GERD, Chronic constipation, Diverticulitis : reports: Benign prostate hypertrophy, Other (dysuria) HEENT: reports: Dental implants Psych: reports: Anxiety Musculoskeletal: reports: Osteoarthritis, Fatigue Derm: reports: None MRSA Hx?: No - Past Surgical History General: reports: Bowel surgery Ortho: reports: Knee replacement, Shoulder arthroplasty, Spine surgery Cardiovascular: reports: Coronary stent Derm: reports: Other - Substance History Use: Uses substance without health or social issues: NONE Social History - Living Situation Living arrangement: At home Living Situation: With spouse/s.o. 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 They had lived in [place], "[place] and [facility] [place]. Desiree's family originally was from here, they were part of the "[employer] crew", and farmed the land. Their children though are pressing them to relocate, and are feeling somewhat overwhelmed how they might get from [place] to , but would benefit from additional support. Family History - Family History Family History: Mother: (mother 94; father 87), Father: , Sister: Alive and Well (2 sisters/1 brother a & w), , Diabetes, Type 2, Brother: Alive and Well Medications/Allergies - Medications Home Medications: Ambulatory Orders Medication Instructions Recorded Confirmed Doxazosin [Cardura] 4 mg PO DAILY 03/05/15 07/20/20 ondansetron HCL [Zofran] 8 mg PO Q6H PRN 05/05/20 07/20/20 Atorvastatin Calcium 80 mg PO DAILY 05/25/20 07/20/20 Clopidogrel [Plavix] 75 mg PO DAILY 05/25/20 07/20/20 Loratadine/Pseudoephedrine 1 tab PO DAILY PRN 05/25/20 07/20/20 [Claritin-D 12 Hour Tablet] Naproxen Sodium [Aleve] 1 - 2 tab PO Q8HR PRN 05/25/20 07/20/20 Omeprazole 40 mg PO DAILY PRN 05/25/20 07/20/20 Phenazopyridine [Pyridium] 200 mg PO BID 05/25/20 07/20/20 Potassium Gluconate 1 tab PO DAILY PRN 05/25/20 07/20/20 Pumpkin Seed/Soy Germ/Cissus [Azo 1 cap PO DAILY 05/25/20 07/20/20 Bladder Control-Wt Mgt Cap] Lisinopril [Prinivil] 5 mg PO DAILY 07/20/20 07/20/20 Metoprolol Succinate [Toprol Xl] 25 mg PO DAILY 07/20/20 07/20/20 - Allergies Allergies/Adverse Reactions: Allergies Allergy/AdvReac Type Severity Reaction Status Date / Time No Known Drug Allergies Allergy Verified 07/20/20 11:23 Review of Systems - Constitutional Constitutional: reports: Fatigue (worsening), Weight stable. denies: Fever, Ch ills - Eyes Eyes: reports: Vision loss, Corrective lenses - Ears, Nose & Throat Ears, Nose & Throat: reports: Hearing loss (mild). denies: Mouth lesions - Cardiovascular Cardiovascular: reports: Decr. exercise tolerance. denies: Chest pain, Edema - Respiratory Respiratory: reports: SOB with exertion. denies: SOB at rest - Gastrointestinal Gastrointestinal: reports: Constipation (intermittent), Nausea (mild last night), Good appetite - Genitourinary Genitourinary: reports: Dysuria (uses pyridium), Frequency. denies: Nocturia - Musculoskeletal Musculoskeletal: reports: Back pain, Muscle aches, Stiffness, Muscle weakness, Assistive devices (uses a cane for balance), Other (hx of falls) - Integumentary Integumentary: reports: Dryness - Neurological Neurological: reports: General weakness, Memory problems (worsening over last year; fluctuating confusion; loss of STM issues; reports more difficulty getting around driving/remembering where things are located; she corrected him through much of conversation), Abnormal gait (balance/numbness). denies: Headache - Psychiatric Psychiatric: reports: Anxiety. denies: Depression - Hematologic/Lymphatic Hematologic/Lymph: Anemia - All Other Systems All Other Systems: reports: Reviewed and negative Physical Exam - Vital Signs Temperature: 97.3 C Pulse Rate: 61 Respiratory Rate: 18 Blood Pressure: 131/64 - Physical Exam General Appearance: positive: No acute distress, Alert Eyes Bilateral: positive: Normal inspection ENT: positive: No signs of dehydration Neck: positive: Trachea midline Cardiovascular: positive: Regular rate & rhythm Respiratory: positive: No respiratory distress Abdomen: positive: Soft, Tenderness (where had shots/LLQ) Skin: positive: Pallor, Dryness, Bruising Extremities: positive: No pedal edema Neurologic/Psychiatric: positive: Oriented x3, Mood/affect nml, Flat affect Palliative Care - POLST Patient has POLST: No Pain: No pain Tiredness/Fatigue: Moderate (4-6) Drowsiness/Sedation: Mild (1-3) Nausea: Mild (1-3) Anorexia: None Dyspnea: None Depression: Mild (1-3) Anxiety: Mild (1-3) Feelings of wellbeing/Perceived Quality of Life: Good, Acceptable Sleep: Sleeps well Constipation: Yes, Intermittent constipation Performance Status: Patient is independent in his ADLs, is still able to drive to familiar places. They are hiring out more difficult household tasks and yard work. He is ambulatory with a cane, reports he has "balance issues". - Palliative Care Discussion: When asked patient what his understanding of his diseases, he reports he has "leukemia", and understands it is not curative in process. He does perceive his current quality of life is good, and is willing to continue treatment. In the context of advanced care planning documents, they think they may have filled out some DPOA's for healthcare, unclear about directives. We did discuss in the scheme of things would be helpful for them to have this information on record here at the hospital, as well as make sure given both of them of head health problems to have any kind of support around decision making available for their family. When asked what patient worries about most, is his , he does not want to be a burden on her, does feel like he is left her well off, surely perceives herself is quite self-sufficient and will be okay particularly with her supportive children. We did discuss how to live in the moment currently, they have always been "Travelers, and with the pandemic restrictions and family so far away, it has been difficult for them. They have a new grandson, whom they showed pictures sent of their family they are quite engaged and try to stay in touch. They report the children have been out recently to visit. Results - Lab Results Lab results reviewed: Yes Impression and Recommendations - Palliative Care Impression: This is a sabi 80-year-old gentleman, who presents with MDS with refractory anemia, with recent signs of relapse. He is restarting Vidaza, with goal to extend quality and quantity of time. He does have significant complex health issues including mild cognitive impairment, myocardial infarction in the last year, and ongoing chronic dysuria and frequency. Both he and his seem somewhat overwhelmed with the restarting of the treatment plan, palliative care will provide support for symptom management, advance care planning, and coordination of care. Recommendations/Counseling Done: 1. Medication adherence. Did printout the medication list, patient sets up pills and takes them from bottles. Was not aware was supposed to follow-up on Plavix with cardiology, is unable to name his heart doctor. Also noted to be on prophylactic acyclovir, patient was not aware, and was on valacyclovir previously. Will reach out to oncology, to clarify prophylactic medications, he will bring in medication bottles, will contact cardiology as this seems overwhelming to patient and in follow up. 2. MCI. Patient presents with worsening memory and concern for early dementia expressed by . May after a report has been established, consider more screening tools and further exploration for support. We will continue to eval uate in future visits and address safety concerns expressed. 3. Advanced care planning. Patient and would benefit from further counseling regarding advanced care planning and advanced care planning documents. Patient currently perceives good quality of life, though does understand the seriousness of his illness. We will continue to elicit goals of care, establish rapport, and follow treatment and treatment outcomes. Time Spent: 60 minutes with greater than 50% of this done in counseling for medication adherence, role of palliative care, advanced care planning and anticipatory guidance.
== END 2020-07-28 12:18 | disposition home or self-care (01) ==
LOC: PC 12:17
PROVIDERS: ATTEND Nurse Practitioner Adult Health
DX: Z51.5 Encounter for palliative care (principal); D46.4 Refractory anemia, unspecified; G31.84 Mild cognitive impairment of uncertain or unknown etiology; I25.2 Old myocardial infarction; I10 Essential (primary) hypertension; T45.526A Underdosing of antithrombotic drugs, initial encounter; T37.5X6A Underdosing of antiviral drugs, initial encounter; Z91.130 Patient's unintentional underdosing of medication regimen due to age-related debility; Z79.899 Other long term (current) drug therapy; Z95.5 Presence of coronary angioplasty implant and graft
CPT/HCPCS: 99205

== ENCOUNTER 2020-08-04 11:45 | Outpatient (CLI) | payer MEDICARE, OTHER ==
--- NOTE | 2020-08-04 21:05 | CONSULTATION NOTE ---
Palliative Care Follow Up - Referral Referring Provider: Dr. Alexander Time of Visit: 9485-0160 Referral setting: [facility] [place] Referral Reason: MCI/relapsed MDS/Goals of Care - Information Sources Records reviewed: Previous records reviewed History/Review of Systems obtained from: Patient, Family () Exam limitations: Clinical condition (both patient and overwhelmed today) - History of Present Illness Update Brief HPI Update: See HPI from 07/28 This is an 80-year-old gentleman who has high-grade myelodysplastic syndrome, with refractory anemia, and has resumed treatment with Vidaza injections, is on day 7. He continues to have severe fatigue, and is feeling overwhelmed. He had severe vomiting and nausea last night, as well as diarrhea. He did take some antiemetic, but remains quite shaken by this. He has been quite exhausted and overwhelmed by his schedule, and is having difficulty tracking and with signi ficantly worsening recall today. Both he and his seem overwhelmed, they had brought in their medications yesterday, and review it appears he still have lots of questions. Though followed up with oncology PA and they had gone through the medications. Unfortunately medication list in her current chart, does not match the conversation I had with them last week, and she allows him to line up his medication bottles, and is not tracking his compliance either. It does appear he has not taken his medications this a.m. Last week and spoke with on the phone, as she had thought she had appoint with Pina the next day and was going to bring in the bottles, she told me he is not taking the clopidogrel, but Pina reports when they brought the medications and it was in his to take back. She also reported his atrophy statin was a half a tab which equals 40 mg, as well as he was able to locate the valacyclovir as he had not been on anything, and started that 500 mg twice daily. Complains of allergies, they did not have Claritin so she was going to start him on Jen. I did print out current list, and asked her to compare it again, she does not recall if she was sent home with a list, nor did she double check this when they got home and setting it out. I suspect may need a home visit for final clarification, will reach out next week. Had called patient this morning, to remind him to bring the advance care directives, as both had been wanting to address this at last visit, unfortunately he forgot to tell his . His had been going to a class, and he did not relay the information. Past Medical History: Hypertension, [place] this last year, sleep apnea with CPAP use, mild cognitive impairment, vertigo, GERD, chronic constipation, diverticulitis, BPH, dysuria, dental implants, anxiety, osteoarthritis, fatigue, bowel surgery, knee replacement, shoulder arthroplasty, spine surgery, coronary stent Social History - Living Situation Living arrangement: At home Living Situation: With spouse/s.o. 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 They have lived here since 2001, to be closer to Desiree's family is a report of "the [employer] crew" informed the land. The children have been pressing them to relocate, but are feeling somewhat overwhelmed at this might occur, but would benefit from additional support. They do have 2 daughters and a son, and they do try and participate as much as they can to help advocate and track things for them. Medications/Allergies - Medications Home Medications: Ambulatory Orders Medication Instructions Recorded Confirmed Doxazosin [Cardura] 4 mg PO DAILY 03/05/15 08/03/20 ondansetron HCL [Zofran] 8 mg PO Q6H PRN 05/05/20 08/03/20 Atorvastatin Calcium 80 mg PO DAILY 05/25/20 08/03/20 Clopidogrel [Plavix] 75 mg PO DAILY 05/25/20 08/03/20 Loratadine/Pseudoephedrine 1 tab PO DAILY PRN 05/25/20 08/03/20 [Claritin-D 12 Hour Tablet] Naproxen Sodium [Aleve] 1 - 2 tab PO Q8HR PRN 05/25/20 08/03/20 Omeprazole 40 mg PO DAILY PRN 05/25/20 08/03/20 Phenazopyridine [Pyridium] 200 mg PO BID 05/25/20 08/03/20 Potassium Gluconate 1 tab PO DAILY PRN 05/25/20 08/03/20 Pumpkin Seed/Soy Germ/Cissus [Azo 1 cap PO DAILY 05/25/20 08/03/20 Bladder Control-Wt Mgt Cap] Lisinopril [Prinivil] 5 mg PO DAILY 07/20/20 08/03/20 Metoprolol Succinate [Toprol Xl] 25 mg PO DAILY 07/20/20 08/03/20 Magnesium 300 mg PO DAILY 08/03/20 08/03/20 Multivit-Min/FA/Lycopen/Lutein 1 tab PO DAILY 08/03/20 08/03/20 [Centrum Silver Men Tablet] Valacyclovir HCl [Valtrex] 500 mg PO BID 08/03/20 08/03/20 - Allergies Allergies/Adverse Reactions: Allergies Allergy/AdvReac Type Severity Reaction Status Date / Time No Known Drug Allergies Allergy Verified 07/20/20 11:23 Review of Systems - Constitutional Constitutional: reports: Fatigue (worsening), Weakness, Poor appetite. denies: Fever, Chills - Eyes Eyes: reports: Vision loss, Corrective lenses - Ears, Nose & Throat Ears, Nose & Throat: reports: Hearing loss (mild). denies: Mouth lesions - Cardiovascular Cardiovascular: reports: Decr. exercise tolerance - Respiratory Respiratory: reports: SOB with exertion. denies: SOB at rest - Gastrointestinal Gastrointestinal: reports: Diarrhea (watery diarrhea with vomiting last night; resolved this am), Nausea, Vomiting (with tx last night), Early satiety - Genitourinary Genitourinary: reports: Dysuria (uses pyridium), Frequency. denies: Nocturia - Musculoskeletal Musculoskeletal: reports: Back pain, Muscle aches, Stiffness, Muscle weakness, Assistive devices (uses a cane for balance), Other (hx of falls) - Integumentary Integumentary: reports: Dryness, Other (pain at abdominal injection sites) - Neurological Neurological: reports: General weakness, Memory problems (worsening over last year; fluctuating confusion; loss of STM issues; reports more difficulty getting around driving/remembering where things are located; she corrected him through much of conversation; patient seems more confused today), Abnormal gait (balance/numbness). denies: Headache - Psychiatric Psychiatric: reports: Anxiety (regarding pending painful shot and recurrent vomiting). denies: Depression - Hematologic/Lymphatic Hematologic/Lymph: Anemia - All Other Systems All Other Systems: reports: Reviewed and negative Physical Exam - Vital Signs Pulse Rate: 70 Respiratory Rate: 16 Blood Pressure: 123/65 - Physical Exam General Appearance: positive: Alert, Mild distress, Anxious, Other (more distrac abraham and difficulty following conversation) Eyes Bilateral: positive: Normal inspection ENT: positive: No signs of dehydration Neck: positive: Trachea midline Cardiovascular: positive: Regular rate & rhythm Respiratory: positive: No respiratory distress Abdomen: positive: Soft, Tenderness (where had shots/LLQ) Skin: positive: Pallor, Dryness, Other (reaction at injection sites; left greater than right) Extremities: positive: No pedal edema Neurologic/Psychiatric: positive: Mood/affect nml, Disoriented to time, Weakness, Flat affect Palliative Care Pain: Comment (pain at injection site) Sleep: Variable sleep pattern - Palliative Care Discussion: Both patient and seem overwhelmed and somewhat distressed. Having difficulty tracking things, both appear extremely tired. The report both slept poorly last night with his nausea and vomiting. Were very anxious regarding this. Had wanted to review advance care documents, patient had forgotten to tell to remind her to bring him in. We had agreed to meet the day she was not meeting with Pina. Will reach out to them prior to next appointment, most likely would benefit from home visit and no distractions to better be able to have a goals of care conversation. Will ask permission to include daughter as part of conversation. Impression and Recommendations - Palliative Care Impression: This is a 80-year-old gentleman who presents with MDS and refractory anemia, with recent signs of relapse. He is just finished cycle of Vidaza, with the goal to extend quality and quantity of time. He does present with worsening mild cognitive impairment, had nausea and vomiting last night, as well as diarrhea most likely as a side effect of his treatment. Both he and his appear easily overwhelmed, unclear if patient has correct medication list here at [facility] [place]. Palliative care to use set up rapport, provide support for symptom management, advanced care planning, and coordination of care. Recommendations/Counseling Done: 1. Medication adherence. reports he did review medication list with Pina yesterday, did confirm with Pina but medication information still does not line up with what reported and read from bottles last week. Printed out a new medication list, patient is taking his meds on his own, with I suspect no oversight from his . Patient short-term memory continues to worsen, may need to facilitate some kind of Mediset system will reach out to children. 2. MCI. Patient continues with even more so worsening memory, concern for early dementia by . Though she is able to reflect that he worsened with treatment last time. When patient not quite so overwhelmed, will do a cognitive eval. 3. MDS with refractory anemia. Patient completing his first course of Vidaza, with anticipatory anxiety regarding pain at injection site. Patient also with nausea vomiting last night, encouraged when got home as did not bring in with him to take ondansetron and to repeat it again this evening. Patient may benefit from prophylactically taking it prior to his shots, will explore strategies to help patient manage symptoms given the complexity of his social situation and memory issues 4. Advance care planning. Patient and would benefit from further counseling regarding advanced care planning advanced care planning documents. Patient currently is feeling somewhat overwhelmed at the end of his Vidaza cycle, will reach out in a couple weeks, offer home visit and follow-up with children. We will continue to elicit goals of care, establish rapport, and follow treatment and treatment outcomes. Time Spent: 30 minutes with greater than 50% of this done in counseling, coordination of care, review of medication list again, and anticipatory guidance. Plan to reach out with home visit in 2 weeks.
== END 2020-08-04 11:46 | disposition home or self-care (01) ==
LOC: PC 11:45
PROVIDERS: ATTEND Nurse Practitioner Adult Health
DX: Z51.5 Encounter for palliative care (principal); G31.84 Mild cognitive impairment of uncertain or unknown etiology; R11.2 Nausea with vomiting, unspecified; R19.7 Diarrhea, unspecified; D46.9 Myelodysplastic syndrome, unspecified; D46.4 Refractory anemia, unspecified; I10 Essential (primary) hypertension; Z79.899 Other long term (current) drug therapy
CPT/HCPCS: 99214

== ENCOUNTER 2020-12-28 | Outpatient (CLI) | payer MEDICARE, OTHER ==
--- NOTE | 2020-12-28 14:48 | CONSULTATION NOTE ---
Palliative Care Follow Up - Referral Referring Provider: Dr. David Alexander Time of Visit: [id number];15 min prep/review= 75 min [place] [facility] [place] Reason: Depression/MCI/AML/Goals of Care - Information Sources Records reviewed: RN notes reviewed, Previous records reviewed History/Review of Systems obtained from: Patient, Family ( Erica) Exam limitations: Clinical condition (patient with MCI; STM issues) - History of Present Illness Update Brief HPI Update: This is an 80-year-old gentleman who made originally seen back in July, but put palliative care on hold, Had offered several follow-up appointments, but declined. 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 There has been concern patient is doing treatment despite his distress with frequent appointments, transfusions, and feeling poorly expressed to staff. Requested I meet with patient and again, regarding goals of care. In discussion with patient and , patient does admit he is doing it to defer to his children's wishes, he does have mild cognitive impairment, which makes it difficult for him to process and weigh the nuances of decision-making regarding this. He does understand the seriousness of his illness, that this is leading to an end-of-life event, but has taken the approach of "I know I got a do what I got to do". He has found his quality of life deteriorating, he feels he is fortunate to even be around to his age. Unfortunately his children are located across the country, one in [place], [place] and [place]. Patient is at high risk for sequela of sepsis, bleeding, and further functional and cognitive decline. They continue to struggle with medication management, which has led to several high risk mistakes. There is still confusion at this visit what he should be taking, interactions with atorvastatin, and need to roller picker new RX. Palliative care meeting with patient and to discuss goals of care, and advanced care planning. Please see Palliative Care Discussion.Patient at this point in time he does want to continue with treatment, but we did complete the POLST with DN AR/DNI and selective treatments. We will continue to explore also end-of-life planning, as patient and have very supportive children, but will need more support and practical plan for EOL. Past Medical History: History of ME with drug-eluting stent placed 07/2019, history of myelodysplastic syndrome 11/2018, hypertension, sleep apnea CPAP use, MCI, vertigo, GERD, chronic constipation, diverticulitis, BPH, dental implants, anxiety, osteoarthritis, fatigue, bowel surgery, knee plate replacement, shoulder arthroplasty, spine surgery Social History - Living Situation Living arrangement: At home Living Situation: With spouse/s.o. 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 Javan and surely have been 55 years, they have 2 daughters and a son. They have lived in [facility], and settled on the [place] on [place]. They have been quite isolated with the Covid pandemic, very much struggled, the children are helping as best they can. Their son is overseeing their finances and helping manage, their oldest daughter Saima who is the backup for DPOA, will be visiting later this week. Their perception though is one of their children would be available for caregiving or end-of-life support. Patient's worsening cognitive impairment is challenging for the , she does try to manage, she herself is dealing with some short-term memory issues and challenge unclear if this is stress and feeling of overwhelm. Medications/Allergies - Medications Home Medications: Ambulatory Orders Medication Instructions Recorded Confirmed Doxazosin [Cardura] 4 mg PO DAILY 03/05/15 12/28/20 ondansetron HCL [Zofran] 8 mg PO Q6H PRN 05/05/20 12/28/20 Atorvastatin Calcium 80 mg PO DAILY 05/25/20 12/28/20 Loratadine/Pseudoephedrine 1 tab PO DAILY PRN 05/25/20 12/28/20 [Claritin-D 12 Hour Tablet] Naproxen Sodium [Aleve] 1 - 2 tab PO Q8HR PRN 05/25/20 12/28/20 Omeprazole 40 mg PO DAILY PRN 05/25/20 12/28/20 Pumpkin Seed/Soy Germ/Cissus [Azo 1 cap PO DAILY 05/25/20 12/28/20 Bladder Control-Wt Mgt Cap] Lisinopril [Prinivil] 5 mg PO DAILY 07/20/20 12/28/20 Metoprolol Succinate [Toprol Xl] 25 mg PO DAILY 07/20/20 12/28/20 Multivit-Min/FA/Lycopen/Lutein 1 tab PO DAILY 08/03/20 12/28/20 [Centrum Silver Men Tablet] Acyclovir [Zovirax] 400 mg PO BID 12/14/20 12/28/20 Levofloxacin [Levaquin] 500 mg PO DAILY 12/14/20 12/28/20 Sulfamethox/Trimeth 800/160 1 tablet PO DAILY 12/14/20 12/28/20 [Bactrim Ds] Venetoclax [Venclexta] 200 mg PO DAILY 12/14/20 12/28/20 Phenazopyridine HCl [Pyridium] 200 mg PO BID PRN 12/22/20 12/28/20 Venetoclax [Venclexta] 100 mg PO DAILY 12/22/20 12/28/20 Posaconazole [Noxafil] 100 mg PO DAILY 12/28/20 12/28/20 - Allergies Allergies/Adverse Reactions: Allergies Allergy/AdvReac Type Severity Reaction Status Date / Time No Known Drug Allergies Allergy Verified 12/07/20 14:17 Review of Systems - Constitutional Constitutional: reports: Fatigue (persistent), Weakness - Eyes Eyes: reports: Vision loss, Corrective lenses - Ears, Nose & Throat Ears, Nose & Throat: reports: Hearing loss - Cardiovascular Cardiovascular: reports: Lightheadedness, Exertional dyspnea, Decr. exercise tolerance - Respiratory Respiratory: reports: Cough (intermittent), SOB with exertion. denies: SOB at rest - Gastrointestinal Gastrointestinal: reports: Constipation (inst. to use Miralax as needed; using Prune juice), Early satiety - Genitourinary Genitourinary: reports: Dysuria (has forgotten about taking pyridium; has had dysuria at baseline reports no change), Frequency, Urgency - Musculoskeletal Musculoskeletal: reports: Back pain, Muscle aches, Stiffness, Muscle weakness, Assistive devices (uses cane), Other (c/o balance issues) - Integumentary Integumentary: reports: Dryness - Neurological Neurological: reports: General weakness, Numbness (some tingling and numblness), Memory problems (STM; some insight but not orientated to year/time), Abnormal gait - Psychiatric Psychiatric: reports: Anxiety - Hematologic/Lymphatic Hematologic/Lymph: reports: Anemia (8.4). denies: Recurrent infections - All Other Systems All Other Systems: reports: Reviewed and negative Physical Exam - Vital Signs Temperature: 36.6 C Pulse Rate: 65 Respiratory Rate: 17 O2 Saturation: 99 Blood Pressure: 120/56 - Physical Exam General Appearance: positive: Alert, Mild distress, Anxious Eyes Bilateral: positive: Normal inspection ENT: positive: No signs of dehydration Neck: positive: Trachea midline Cardiovascular: positive: Regular rate & rhythm Respiratory: positive: Diminished in bases. negative: Wheezes, Rales, Rhonchi Abdomen: positive: Soft, Tenderness Skin: positive: Pallor, Dryness Extremities: positive: No pedal edema Neurologic/Psychiatric: positive: Mood/affect nml, Disoriented to time, Weakness, Flat affect Palliative Care - POLST Patient has POLST: Yes POLST Status: DNR (completed POLST this visit), Selective Treatment Pain: No pain Tiredness/Fatigue: Moderate (4-6) Drowsiness/Sedation: Mild (1-3) Nausea: None Anorexia: Moderate (4-6) Dyspnea: Moderate (4-6) Depression: Mild (1-3) Anxiety: Mild (1-3) Feelings of wellbeing/Perceived Quality of Life: Poor, Worsening Sleep: Variable sleep pattern (up frequently) Constipation: Yes, Unmanaged Performance Status: Patient has always been somewhat of a can do kadeem, very much likes his projects and to be busy. He has been quite limited by his balance, endurance, and declining functional status. He is much more sedentary, does try and help surely with the dishes and task around home. She finds this somewhat complicated as his memory has been failing, but does allow him to do what he can. He is able to bathe, and dress himself, she has been overseeing his medica tions somewhat, but unfortunately leaves it to him for as needed medications. I suspect patient is unable to recall or manage these appropriate at this point in time. - Palliative Care Discussion: Discussed patient's understanding of his current illness, it is somewhat limited. Reports he is taking things just day-to-day, and enjoying being with his is much as he can. He reports "I know I got to do what I got to do". He is finding this though quite overwhelming, there are frequent visits, the medications, feeling poorly and his declining quality of life. They are both now fully vaccinated, so looking forward to seeing some of his family, his oldest daughter is coming this week. Both he and his are in agreement Javan is moving forward to please the children, we explored if they understand what it is like for him living day-to-day and what it takes. We did discuss though the 2 paths were continuing on with treatment, recognizing the seriousness of his illness, and the risk of treatment certainly is the sequela of infection, bleeding, and rapid decline and . But patient does have a terminal disease so no treatment also would lead to end-of-life event. We discussed what would be most important as far as his time right now how he wants to spend it, I suspect he cannot make the decision regarding the nuances of this. He is quite clear though he does not want to have any "heroic measures", and was able to participate in a POLST discussion, Does want to be a DN AR/DNI, would accept hospitalization for reversible conditions weighing those benefits and burdens depending on his quality of life and outcome of his hospitalization. We did discuss in the context of either somewhere along the way if treatment became too burdensome, or patient wanted to focus only on comfort, or the treatment was working about transitioning in the continuum to hospice. Counseling initiated on hospice support, has not 24-hour care, would allow for patient's wishes to have a at home. would want this as well, though already is overwhelmed with just managing medications and his current appointments. When asked if children would be resource to be able to provide support when this time comes, they did not believe so, but did encourage them to explore these possibilities. Their perception is that her children do not think any things going to happen to him, this certainly his prognosis is most likely in months not years.I did explore if they would be comfortable talking to Lexa about their finances, if they would be able to hire some help and caregiving towards end-of-life or if things got more complicated, they no longer have long-term care insurance, and discussed that Medicare and secondary does not cover caregiving expenses. Results - Lab Results Lab results reviewed: Yes Impression and Recommendations - Palliative Care Impression: This is an 80-year-old gentleman who presents with acute myeloid leukemia, with 50% blasts by flow cytometry in 11/2020. He is currently on is side is admitting and then to class, since 12/07/2020, has been transfusion dependent. There has been multiple concerns regarding patient's medication adherence and correct dosing. Patient is continued to decline both functionally and cognitively, identifies worsening quality of life, but feeling like needs to continue with treatment versus the alternative at this point. Palliative care has been asked to meet with patient and , to provide increased support, build rapport, and assist with advanced care planning. Recommendations/Counseling Done: 1. Medication adherence. This continues to be problematic, also in the context of changing instructions. Patient to start antifungal, posocanozole, unfortunately interacts with multiple medications. Patient had initially been taking the wrong dose of ventoclax, now has 200 mg and 100 mg, clarified with Dr. Alexander dosing of medications, and schedule. Deferred atorvastatin question to cardiology, call into [facility] managing patients medications per office report. Did try to speak with [facility], original dosing had been on the antifungal posaconazole 100 mg, and clarification with oncologist, wants to 300 mg. Had left several messages, no return, when called house later was off to pick it up.Will make plan for further clarification either home visit or follow-up with daughter who is visiting in the next day or 2. 2. MCI. Patient continues with declining memory, he is able to participate in conversations, though does have insight into worsening of this. His is been quite challenged by this, and trying to manage, probably does overestimate his abilities, as has let him manage some of his medications independently. 3. AML. Patient is on active treatment, high risk for sequela of infection, bleeding, and hospitalization. Patient is being followed closely at the clinic, will add extra layer support with palliative care to assist with decreasing risk. 4. Advanced care planning. Did explore patient's goals of care, patient's understanding of illness, priorities as far as what is most important, and initiated conversation regarding advance care planning. We did complete POLST today, with DN AR/DNI and selective treatments, patient would treat reversible conditions, but is wanting improved quality of life. Patient this point in time would like to continue treatments and treatment support, though is finding this more burdensome. We will continue to follow. 75 minutes including record review, review of labs, coordination of care with oncology, [id number] exam, and counseling regarding advance care planning.
== END 2020-12-28 10:29 | disposition home or self-care (01) ==
CPT/HCPCS: 99215

== ENCOUNTER 2021-01-08 09:45 | Outpatient (CLI) | payer MEDICARE, OTHER ==
--- NOTE | 2021-01-08 17:01 | CONSULTATION NOTE ---
Palliative Care Follow Up - Referral Referring Provider: Dr. David Alexander Time of Visit: 7844-0126 Referral setting: Home Referral Reason: Medication Adherence/AML/Goals of Care - Information Sources Records reviewed: Previous records reviewed History/Review of Systems obtained from: Patient, Family ( Erica) Exam limitations: Clinical condition (both with forgetfulness; patient's is worsening) - History of Present Illness Update Brief HPI Update: This is an 80-year-old gentleman is converted from his high-grade myelodysplastic syndrome to acute myeloid leukemia. He has been taking Is azacitidine/venetoclax, and tolerating poorly. He has significant fatigue, has been transfusion dependent, severely neutropenic, and having low-grade nausea. Making the situation more complex, has been his worsening cognitive status. Patient had hypotension earlier in the week, oncology had made some changes, given patient's difficulty with medication management and follow-up collections associate patient and had not made any changes. Palliative care visit to review medication adherence, follow-up on symptom management, and continue goals of care conversation. Social History - Living Situation Living arrangement: At home Living Situation: With spouse/s.o. Support System: Patient and have been for 55 years, they have 2 daughters and his son. They have a sabi large home and gardens, but things are pretty overwhelming in the home, with lots of piles, and difficulty locating medications. Their children have been supported them via telephone, his daughter Saima came out last week, but for the most part they are trying to manage on their own. Both present with struggles with memory and feeling overwhelmed by their current schedule with appointments. Medications/Allergies - Medications Home Medications: Ambulatory Orders Medication Instructions Recorded Confirmed Doxazosin [Cardura] 2 mg PO DAILY 03/05/15 01/08/21 ondansetron HCL [Zofran] 8 mg PO Q6H PRN 05/05/20 01/08/21 Metoprolol Succinate [Toprol Xl] 25 mg PO DAILY 07/20/20 01/08/21 Multivit-Min/FA/Lycopen/Lutein 1 tab PO DAILY 08/03/20 01/08/21 [Centrum Silver Men Tablet] Acyclovir [Zovirax] 400 mg PO BID 12/14/20 01/08/21 Levofloxacin [Levaquin] 500 mg PO DAILY 12/14/20 01/08/21 Sulfamethox/Trimeth 800/160 1 tablet PO DAILY 12/14/20 01/08/21 [Bactrim Ds] Phenazopyridine HCl [Pyridium] 200 mg PO BID PRN 12/22/20 01/08/21 Venetoclax [Venclexta] 100 mg PO DAILY 12/22/20 01/08/21 Posaconazole [Noxafil] 300 mg PO DAILY 12/28/20 01/08/21 Fexofenadine HCl 180 mg PO DAILY 12/30/20 01/08/21 polyethylene glycoL 3350 [Miralax] 17 gm PO DAILY PRN 12/30/20 01/08/21 - Allergies Allergies/Adverse Reactions: Allergies Allergy/AdvReac Type Severity Reaction Status Date / Time No Known Drug Allergies Allergy Verified 01/04/21 12:49 Review of Systems - Constitutional Constitutional: reports: Fatigue (worsening), Weakness, Poor appetite - Eyes Eyes: reports: Vision loss, Corrective lenses - Ears, Nose & Throat Ears, Nose & Throat: reports: Hearing loss, Postnasal drainage - Cardiovascular Cardiovascular: reports: Decr. exercise tolerance - Respiratory Respiratory: reports: Cough (worse after dinner), SOB with exertion. denies: SOB at rest - Gastrointestinal Gastrointestinal: reports: Nausea, Vomiting (yesterday after got home), Early satiety - Genitourinary Genitourinary: reports: Dysuria, Frequency - Musculoskeletal Musculoskeletal: reports: Back pain, Muscle aches, Stiffness, Muscle weakness, Assistive devices (uses cane), Other (c/o balance issues) - Integumentary Integumentary: reports: Dryness - Neurological Neurological: reports: General weakness, Memory problems (worsening; some insight), Abnormal gait - Psychiatric Psychiatric: reports: Anxiety (worried about what to do), Other (gets irritated at if tries to help/correct him) - Hematologic/Lymphatic Hematologic/Lymph: reports: Anemia (01/07 8.6). denies: Recurrent infections - All Other Systems All Other Systems: reports: Reviewed and negative Physical Exam - Vital Signs Temperature: 97.3 C Pulse Rate: 93 Respiratory Rate: 18 O2 Saturation: 98 (ra @ rest) Blood Pressure: 102/64 - Physical Exam General Appearance: positive: Alert, Mild distress, Anxious Eyes Bilateral: positive: No scleral icterus ENT: negative: Oral lesions Neck: positive: Trachea midline Cardiovascular: positive: Irregularly irregular Respiratory: positive: Diminished in bases. negative: Wheezes, Rales, Rhonchi Skin: positive: Pallor (very sallow in appearance), Dryness Extremities: positive: No pedal edema Neurologic/Psychiatric: positive: Disoriented to time, Flat affect Palliative Care - POLST Patient has POLST: Yes POLST Status: DNR, Selective Treatment Pain: No pain Tiredness/Fatigue: Moderate (4-6) Drowsiness/Sedation: Moderate (4-6) Nausea: Moderate (4-6), With vomiting Anorexia: Moderate (4-6) Dyspnea: Mild (1-3) Depression: Mild (1-3) Anxiety: Moderate (4-6) Feelings of wellbeing/Perceived Quality of Life: Fair, Acceptable, Worsening Sleep: Variable sleep pattern (up to void) Constipation: Yes, Intermittent constipation Performance Status: Patient's gait seems somewhat ataxic, he is able to ambulate short distances but gets quite winded. They do have a long walk from their door to the car. They also have multiple stairs in their home. There are multiple high risk areas for falls, a concern with patient's worsening counts. - Palliative Care Discussion: Patient is feeling poorly overall, did ask if recalled conversation with Dr. Alexander, he does understand he is "got a short time" whether he takes the medication or not. We discussed his current quality of life and concern, as he does feel quite poorly, with more fatigue and he is having quite a bit of nausea today. Did have patient taken ondansetron at visit. does not feel like to make the decision for him, would like to defer to the children. Reviewed that in speaking with Saima my understanding was that they would like him to have the best quality of life during this time that he has left. He seems somewhat overwhelmed by all of this and the decision making, does recognize he might end up in the hospital. Both he and surely feel like they are doing the best they can, acknowledged just how overwhelming this was and provided supportive listening. Results - Lab Results Lab results reviewed: Yes Lab and Imaging Results: 415 WBC 0.4; hemoglobin 8.6; hematocrit 24.9; 12,000 platelets, and 0.0 neutrophils Impression and Recommendations - Palliative Care Impression: This is an 80-year-old gentleman who presents with acute myeloid leukemia, with 50% blasts by flow cytometry 11/2020. He is currently on treatment, though has not been taking his Venetoclax at least for several days, as well as a lower dose of the posaconazole. Patient does appear to have high symptom burden of fatigue, nausea, and worsening anxiety regarding his current schedule. Me dication adherence continues to be a challenge given patient's cognitive decline. Palliative care providing support for symptom management as well as anticipatory guidance. Recommendations/Counseling Done: 1. Medication adherence. This continues to be quite problematic, particular in the context of ongoing changing instructions. Is important to write them down, though unclear if patient can remember our translate into his current system. Reviewed patient's current system of what he is doing, put labels on top of the containers, tried to put cues that might help him be more adherent, as well as put all the medications into 1 box that he takes on a daily basis. I did update input a new medication list in his box, but he takes them from the bottles. It does appear he is not been taking his Venetoclax at least for several days. This remains a high risk situation regarding medication adherence and patient's schedule. feels overwhelmed, is difficult for her to to track, as well as patient is quite resistant and she has very little insight into the severity of his cognitive issues. 2. MCI. Patient continues with worsening memory, both patient and admit with treatment to this does seem to add to the overwhelm and he is not as clear as he is when off treatment. They are both doing the best they can, but it has been difficult with the schedule, his symptoms, and medications. 3. AML. Patient is on active treatment, remains at high risk for sequela of infection, bleeding, and hospitalization. Patient also is at high risk for falls, particularly in his current home setting, patient has balance issues as well as multiple steps within his home. 4. Advanced care planning. Did revisit patient's goals of care, they are both feeling quite exhausted through this week and overwhelmed. does not feel like patient can make the decision, he has been somewhat ambivalent. She does not weigh make it for him, she is asking the kids to weigh in and they would like to see him have better quality of life knowing that quantity of life is limited. She is thinking about agreeing to some kind of family meeting, their son is coming to visit from [place]. 45 minutes with greater than 50% of this done in counseling and review of medications, pain and symptom management, and anticipatory guidance
== END 2021-01-08 09:46 | disposition home or self-care (01) ==
LOC: PC 09:45
PROVIDERS: ATTEND Nurse Practitioner Adult Health
DX: Z51.5 Encounter for palliative care (principal); R11.0 Nausea; G31.84 Mild cognitive impairment of uncertain or unknown etiology; C92.00 Acute myeloblastic leukemia, not having achieved remission; Z91.14 Patient's other noncompliance with medication regimen; Z79.899 Other long term (current) drug therapy; Z66 Do not resuscitate
CPT/HCPCS: 99349

== ENCOUNTER 2021-01-14 16:11 | Observation (INO) | payer MEDICARE, OTHER ==
--- NOTE | 2021-01-14 16:26 | ED Physician Documentation ---
History of Present Illness - Stated complaint Stated Complaint: LOW PULSE - History obtained from History obtained from: Patient, Family - Additonal information Additional information: He was sent over from [facility] clinic because of a low heart rate into the 30s today. It is relatively asymptomatic. Per , by phone, his metoprolol was halved from 25 to 12.5mg PO daily. Review of Systems Unable to obtain: Dementia PD PAST MEDICAL HISTORY - Past Medical History Cardiovascular: Hypertension, PR Respiratory: Sleep apnea, CPAP use Neuro: Other Endocrine/Autoimmune: None GI: GERD, Chronic constipation, Diverticulitis : Benign prostate hypertrophy, Other HEENT: Dental implants Psych: Anxiety Musculoskeletal: Osteoarthritis, Fatigue Derm: None - Past Surgical History Past Surgical History: Yes General: Bowel surgery Ortho: Knee replacement, Shoulder arthroplasty, Spine surgery Cardiovascular: Coronary stent Derm: Other - Present Medications Home Medications: Ambulatory Orders Medication Instructions Recorded Confirmed Doxazosin [Cardura] 2 mg PO DAILY 03/05/15 01/11/21 ondansetron HCL [Zofran] 8 mg PO Q6H PRN 05/05/20 01/11/21 Metoprolol Succinate [Toprol Xl] 25 mg PO DAILY 07/20/20 01/11/21 Multivit-Min/FA/Lycopen/Lutein 1 tab PO DAILY 08/03/20 01/11/21 [Centrum Silver Men Tablet] Acyclovir [Zovirax] 400 mg PO BID 12/14/20 01/11/21 Levofloxacin [Levaquin] 500 mg PO DAILY 12/14/20 01/11/21 Sulfamethox/Trimeth 800/160 1 tablet PO DAILY 12/14/20 01/11/21 [Bactrim Ds] Phenazopyridine HCl [Pyridium] 200 mg PO BID PRN 12/22/20 01/11/21 Venetoclax [Venclexta] 100 mg PO DAILY 12/22/20 01/11/21 Posaconazole [Noxafil] 300 mg PO DAILY 12/28/20 01/11/21 Fexofenadine HCl 180 mg PO DAILY 12/30/20 01/11/21 polyethylene glycoL 3350 [Miralax] 17 gm PO DAILY PRN 12/30/20 01/11/21 - Allergies Allergies/Adverse Reactions: Allergies Allergy/AdvReac Type Severity Reaction Status Date / Time No Known Drug Allergies Allergy Verified 01/11/21 12:18 - Social History Does the pt smoke?: No Smoking Status: Never smoker Does the pt drink ETOH?: Yes Does the pt have substance abuse?: No - Immunizations Immunizations are current?: Yes - POLST Patient has POLST: No PD ED PE NORMAL - Vitals Vital signs reviewed: Yes - General General: No acute distress, Well developed/nourished, Other (A/O x2) - HEENT HEENT: PERRL, EOMI - Neck Neck: Supple, no meningeal sign, No bony TTP - Cardiac Cardiac: Other (irregular, shqa) - Respiratory Respiratory: No respiratory distress, Clear bilaterally - Abdomen Abdomen: Normal bowel sounds, Soft, Non tender - Back Back: No CVA TTP, No spinal TTP - Derm Derm: Normal color, Warm and dry - Extremities Extremities: No edema, No calf tenderness / cord - Neuro Neuro: No motor deficit, No sensory deficit, Normal speech Eye Opening: Spontaneous Motor: Obeys Commands Results - Vitals Vitals: Vital Signs - 24 hr 01/14/21 16:12 Temperature 36.4 C L Heart Rate 62 Respiratory 16 Rate Blood Pressure 113/57 L O2 Saturation 99 Oxygen O2 Source Room air - EKG (time done) 1637 Rate: Rate (enter#) (87) - Labs Labs: Laboratory Tests 01/14/21 01/14/21 01/14/21 16:35 16:35 16:35 WBC 0.7 L* RBC 3.15 L Hgb 9.9 L Hct 28.7 L MCV 91.1 MCH 31.4 H MCHC 34.5 RDW 15.1 H Plt Count 14 L* MPV 10.2 PT 13.6 H INR 1.2 Sodium 135 Potassium 3.9 Chloride 105 Carbon Dioxide 21 Anion Gap 9.0 BUN 29 H Creatinine 1.5 H Estimated GFR (MDRD) 45 L Glucose 103 H Calcium 9.3 Magnesium 2.2 Total Bilirubin 2.0 H AST 18 ALT 17 Alkaline Phosphatase 92 Total Protein 6.3 L Albumin 3.8 Globulin 2.5 Albumin/Globulin Ratio 1.5 PD MEDICAL DECISION MAKING - ED course ED course: On the monitor he is in a mixture of normal sinus rhythm with a rate in the 60s versus A. fib with breakthrough PVCs with a rate in the 30s. He is asymptomatic during all of this. His supportive is at the bedside we discussed goals o f care and whether or not he would want a pacemaker should he fail to improve with medication adjustment and they need to think about it. Case discussed with Dr. Corral at 5:10 PM and she will observe. Departure - Departure Disposition: ED Place in Observation Clinical Impression: Thrombocytopenia, Bradycardia Condition: Stable
[2021-01-14 16:43] LABS: HGB - HEMOGLOBIN 9.9 g/dL (14.0-18.0); RED CELL DISTRIBUTION WIDTH 15.1 % (12.0-15.0)
[2021-01-14 16:48] LABS: HCT - HEMATOCRIT 28.7 % (42.0-52.0); INR 1.2 (0.8-1.2); LYMPHOCYTES % (AUTO) 72.7 %; MEAN CORPUSCULAR HEMOGLOBIN 31.4 pg (27.0-31.0); MEAN CORPUSCULAR HGB CONC 34.5 g/dL (32.0-36.0); MEAN CORPUSCULAR VOLUME 91.1 fL (80.0-94.0); MEAN PLATELET VOLUME 10.2 fL (7.4-11.4); NEUTROPHILS % (AUTO) 24.3 %; PT - PROTHROMBIN TIME 13.6 secs (9.9-12.6); RED BLOOD COUNT 3.15 10^6/uL (4.70-6.10)
[2021-01-14 16:51] LABS: PLT - PLATELET COUNT 14 10^3/uL (130-450); WHITE BLOOD COUNT 0.7 x10^3/uL (4.8-10.8)
[2021-01-14 16:52] LABS: ABNORMAL LYMPHS % (MANUAL) 0 %; ALBUMIN 3.8 g/dL (3.2-5.5); ALBUMIN/GLOBULIN RATIO 1.5 (1.0-2.2); BAND NEUTROPHILS % (MANUAL) 0 %; CALCIUM 9.3 mg/dL (8.5-10.3); CREATININE 1.5 mg/dL (0.6-1.2); MAGNESIUM 2.2 mg/dL (1.7-2.8); POTASSIUM 3.9 mmol/L (3.5-5.0); TOTAL PROTEIN 6.3 g/dL (6.7-8.2)
[2021-01-14] MEDS ORDERED: PHENAZOPYRIDINE 100 MG TABLET PO STA (17:14)
[2021-01-14 17:24] LABS: DIFFERENTIAL COMMENT MANUAL DIFFERENTIAL; LYMPHOCYTES # (MANUAL) 0.5 10^3/uL (1.5-3.5); LYMPHOCYTES % (MANUAL) 54 %; NEUTROPHILS # (MANUAL) 0.2 10^3/uL (1.5-6.6); PLATELET ESTIMATE, MANUAL DECREASED (<130,000) (NORMAL); PLATELET MORPHOLOGY NORMAL APPEARANCE (NORMAL); REACTIVE LYMPHS % (MANUAL) 12 %
[2021-01-14] MEDS ORDERED: SODIUM CHLORIDE FLUSH 0.9% 10 ML SYRINGE IVP PRN (18:04)
[2021-01-14] MEDS ORDERED: ACETAMINOPHEN 325 MG TABLET PO PRN (18:04)
[2021-01-14] MEDS ORDERED: ONDANSETRON 4 MG/2 ML VIAL IVP PRN ×2 (18:04→18:34)
[2021-01-14] MEDS ORDERED: PHENAZOPYRIDINE HCL 200 MG PO PRN (18:06)
[2021-01-14] MEDS ORDERED: polyethylene glycoL 3350 17 GM PACKET PO PRN (18:06)
--- NOTE | 2021-01-14 18:12 | HISTORY & PHYSICAL EXAMINATION ---
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 He is followed by Leticia Garcia NP from Palliative Care. In the [facility] clinic today, he was noted to have bradycardia in 30-40's and was sent to the ER. Telemetry in the ER shows that he is in sinus rhythm at a rate of 60 and has paroxysms of A. fib with heart rates in the 30s. There are also frequent PVCs. The gave details of his history that his metoprolol dose of 25 was recently decreased to 12.5 mg. Review of EMR shows that he was recently hypotensive and that his Lisinopril was stopped and Tamsolusin dose was decreased. He has been having marked fatigue and some shortness of breath, there has been no syncope. His memory is worseni ng. Patient is being placed in Observation to stop all heart rate slowing meds, monitor for severe bradycardia and consider transfer for a permanent pacemaker implantation. The ER provider, Dr. Pickard, discussed the possibility of needing a pacemaker if stopping metoprolol does not correct the bradycardia, and both the patient and (at bedside) hesitated and stated they need to think about it. Review of this patient's POLST shows that he wants selective treatment and is a DNR/DNI. Review of EMR of visits with Leticia Garcia NP showed that the would like their children to weigh in on decisions for the patient. History - Past Medical History Cardiovascular: reports: Hypertension, CA Respiratory: reports: Sleep apnea, CPAP use Neuro: reports: Other (Memory problems. He states that he still drives a car.) Endocrine/Autoimmune: reports: None GI: reports: GERD, Chronic constipation, Diverticulitis : reports: Benign prostate hypertrophy, Other HEENT: reports: Dental implants Psych: reports: Anxiety Musculoskeletal: reports: Osteoarthritis, Fatigue Derm: reports: None MRSA Hx?: No Other Past Medical History: AML - Past Surgical History General: reports: Bowel surgery Ortho: reports: Knee replacement, Shoulder arthroplasty, Spine surgery Cardiovascular: reports: Coronary stent Derm: reports: Other - Family & Social History Family History: Mother: , Father: , Sister: Alive and Well, , Diabetes, Type 2, Brother: Alive and Well Living arrangement: At home Living Situation: With spouse/s.o. - Substance History Use: Uses substance without health or social issues: NONE, Other (He never smoked, he drinks no alcohol.) - POLST Patient has POLST: Yes POLST Status: DNR Meds/Allgy - Home Medications Home Medications: Ambulatory Orders Medication Instructions Recorded Confirmed Doxazosin [Cardura] 2 mg PO DAILY 03/05/15 01/14/21 ondansetron HCL [Zofran] 8 mg PO Q6H PRN 05/05/20 01/14/21 Metoprolol Succinate [Toprol Xl] 25 mg PO DAILY 07/20/20 01/14/21 Multivit-Min/FA/Lycopen/Lutein 1 tab PO DAILY 08/03/20 01/14/21 [Centrum Silver Men Tablet] Acyclovir [Zovirax] 400 mg PO BID 12/14/20 01/14/21 Levofloxacin [Levaquin] 500 mg PO DAILY 12/14/20 01/14/21 Sulfamethox/Trimeth 800/160 1 tablet PO DAILY 12/14/20 01/14/21 [Bactrim Ds] Phenazopyridine HCl [Pyridium] 200 mg PO BID PRN 12/22/20 01/14/21 Venetoclax [Venclexta] 100 mg PO DAILY 12/22/20 01/14/21 Posaconazole [Noxafil] 300 mg PO DAILY 12/28/20 01/14/21 Fexofenadine HCl 180 mg PO DAILY 12/30/20 01/14/21 polyethylene glycoL 3350 [Miralax] 17 gm PO DAILY PRN 12/30/20 01/14/21 - Allergies Allergies/Adverse Reactions: Allergies Allergy/AdvReac Type Severity Reaction Status Date / Time No Known Drug Allergies Allergy Verified 01/14/21 17:15 Review of Systems - Constitutional Constitutional: reports: Fatigue - Cardiovascular Cariovascular: reports: Other (denies lightheadedness, palpitations or syncope ever.) - Respiratory Respiratory: reports: Cough (after eating slid foods, so makes food "soft", no trouble with liquids.) - Genitourinary Genitourinary: reports: Dysuria (for which he is on scheduled Pyridium) - Neurological Neurological: reports: Memory problems - Hematologic/Lymphatic Hematologic/Lymphatic: reports: Bleeding tendencies (Last visit with Oncology was 6 days ago and he had erosion of his gums and blood clot in that spot) - All Other Systems All Other Systems: reports: Other (All the above review of systems was taken from chart review of documented visits, the patient cannot give details because of his dementia.) Exam - Vital Signs Vital Signs: Vital Signs x48h Temp Pulse Resp BP Pulse Ox 01/14/21 16:12 36.4 C L 62 16 113/57 L 99 - Physical Exam General Appearance: positive: No acute distress, Alert Eyes Bilateral: positive: Normal inspection, EOMI ENT: positive: No signs of dehydration Neck: positive: Nml inspection, No JVD Respiratory: positive: No respiratory distress, Breath sounds nml Cardiovascular: positive: No murmur, Bradycardia Abdomen: positive: Non-tender, Nml bowel sounds, No distention Skin: positive: No rash, Warm, Dry, Pallor Extremities: positive: No pedal edema Neurologic/Psychiatric: positive: Motor nml, Disoriented to person Conclusion/Plan - Problem List (1) Bradycardia Conclusion/Plan: This is partly from being on a beta-vania but the dose has already been decreased and is very low. Will place patient in Observation on telemetry and allow the metoprolol to washout over the next 24 hours. Avoid any heart rate slowing medications. We will check troponins x2 to rule out CA as cause of this bradycardia dysrhythmia. We will order an Echocardiogram to evaluate chamber sizes and contractility (2) Paroxysmal A-fib Conclusion/Plan: This is apparently a new rhythm for this patient, review of Workable shows only 1 prior EKG that showed sinus rhythm. There is no prior history of A. fib and his medical record entries. Will rule out thyroid problem, rule out CA and will obtain an echo to evaluate chamber sizes and contractility. With his severe thrombocytopenia, no anticoagulant or antiplatelet agent is indicated, for stroke pro[hylaxis. (3) AML (acute myeloblastic leukemia) Conclusion/Plan: He has severe pancytopenia. We will avoid Lovenox, anticoagulants, antiplatelet agents. We will review records regarding the plan for chemo, transfusions, PICC line insertion, antibx for prophylaxis. Follow his CBC daily. If he will need surgery for pacemaker implant, he will need platelet transfusions. (4) Dementia Conclusion/Plan: Patient knew very little details of his entire past medical history, this was obtained from the by the ER provider. (5) Hx of coronary artery disease Conclusion/Plan: He had a prior CA and CAD and thinks he had a stent placed and attended cardiac rehab. He no longer goes to see a Talent Acquisition Operations Manager. Continue with telemetry. Stop the beta-vania. Will monitor troponins x2. No aspirin can be used because of severe thrombocytopenia. We will obtain Echo to evaluate LV function. (6) CKD (chronic kidney disease) Conclusion/Plan: His creatinine was 1.5. Review of records shows that his creatinine runs 1.2- 1.5. (7) Sleep apnea with use of continuous positive airway pressure (CPAP) Conclusion/Plan: Will order use of his home CPAP device while here - Lab Results Fish Bones: 01/14/21 16:35 01/14/21 16:35
--- OUTSIDE RECORDS SUMMARY | 2021-01-14 18:17 | EXTERNAL MEDICAL SUMMARY RPT | Continuity of Care Document ---
:1940 Demographics Phone Unavailable Preferred Language Unknown Marital Status Unknown Shinto Affiliation Unknown Race Unknown Ethnic Group Unknown Author Organization [place] Address [address] [place] [address] Phone Social History date description facility [phone]
[2021-01-14] MEDS ORDERED: SODIUM CHLORIDE 0.9% 1,000 ML IV SCH (19:00)
[2021-01-14 19:29] LABS: B. PARAPERTUSSIS- RESP PCR PAN NOT DETECTED; B. PERTUSSIS- RESP PCR PANEL NOT DETECTED; C. PNEUMONIAE- RESP PCR PANEL NOT DETECTED; CORONAVIRUS 229E-RESP PCR NOT DETECTED; CORONAVIRUS HKU1-RESP PCR NOT DETECTED; CORONAVIRUS NL63-RESP PCR NOT DETECTED; CORONAVIRUS OC43-RESP PCR NOT DETECTED; HUMAN METAPNEUMOVIRUS NOT DETECTED; INFLUENZA A- RESP PCR PANEL NOT DETECTED; INFLUENZA B - RESP PCR PANEL NOT DETECTED; M. PNEUMONIAE- RESP PCR PANEL NOT DETECTED; PARAINFLUENZA VIRUS 1 NOT DETECTED; PARAINFLUENZA VIRUS 2 NOT DETECTED; PARAINFLUENZA VIRUS 3 NOT DETECTED; PARAINFLUENZA VIRUS 4 NOT DETECTED; RHINOVIRUS/ENTEROVIRUS NOT DETECTED; RSV- RESP PCR PANEL NOT DETECTED; SARS-CoV-2 -RESP PCR PANEL NOT DETECTED
[2021-01-14] MEDS ORDERED: ACYCLOVIR 400 MG PO SCH (21:00)
[2021-01-15] MEDS: SODIUM CHLORIDE FLUSH 0.9% 10 ML SYRINGE IVP SCH ×2 (01:24→09:43)
[2021-01-15 05:17] LABS: HCT - HEMATOCRIT 27.2 % (42.0-52.0); HGB - HEMOGLOBIN 9.2 g/dL (14.0-18.0); LYMPHOCYTES % (AUTO) 75.4 %; MEAN CORPUSCULAR HEMOGLOBIN 30.7 pg (27.0-31.0); MEAN CORPUSCULAR HGB CONC 33.8 g/dL (32.0-36.0); MEAN CORPUSCULAR VOLUME 90.7 fL (80.0-94.0); MEAN PLATELET VOLUME 12.7 fL (7.4-11.4); MONOCYTES % (AUTO) 4.9 %; NEUTROPHILS % (AUTO) 19.7 %; RED CELL DISTRIBUTION WIDTH 15.9 % (12.0-15.0)
[2021-01-15 05:21] LABS: PLT - PLATELET COUNT 12 10^3/uL (130-450); WHITE BLOOD COUNT 0.6 x10^3/uL (4.8-10.8)
[2021-01-15 05:23] LABS: ABNORMAL LYMPHS % (MANUAL) 0 %; BAND NEUTROPHILS % (MANUAL) 0 %
[2021-01-15 05:24] LABS: CALCIUM 9.1 mg/dL (8.5-10.3); CREATININE 1.2 mg/dL (0.6-1.2); POTASSIUM 3.7 mmol/L (3.5-5.0)
[2021-01-15 05:39] LABS: LYMPHOCYTES # (MANUAL) 0.5 10^3/uL (1.5-3.5); LYMPHOCYTES % (MANUAL) 75 %; NEUTROPHILS # (MANUAL) 0.1 10^3/uL (1.5-6.6); PLATELET ESTIMATE, MANUAL DECREASED (<130,000) (NORMAL); PLATELET MORPHOLOGY NORMAL APPEARANCE (NORMAL); WBC MORPHOLOGY (MULTIPLE) NORMAL APPEARANCE (NORMAL)
[2021-01-15 08:27] VITALS: BP 115/65
[2021-01-15] MEDS ORDERED: LEVOFLOXACIN 500 MG PO SCH (09:00)
[2021-01-15] MEDS ORDERED: [UNRECOGNIZED DRUG - OTHER] PO SCH (09:00)
[2021-01-15] MEDS ORDERED: POSACONAZOLE 100 MG PO SCH (09:00)
[2021-01-15] MEDS ORDERED: NON FORMULARY MED (Fexofenadine Hcl [Fexofenadine Hcl] 180 MG Tablet) PO SCH (09:00)
[2021-01-15] MEDS ORDERED: DOXAZOSIN 4 MG TABLET PO SCH (09:00)
[2021-01-15] MEDS ORDERED: SULFAMETH/TRIMETH DS 800/160 MG TABLET PO SCH (09:00)
[2021-01-15] MEDS ORDERED: VENETOCLAX 100 MG PO SCH (09:00)
--- NOTE | 2021-01-15 09:06 | Discharge Plan ---
Discharge Plan Problem Reviewed?: Yes Disposition: Home, Self Care Condition: Fair Diet: Soft Activity Restrictions: Activity as Tolerated Shower Restrictions: No Health Concerns: You were monitored overnight to follow your heart rate. By taking you off Metoprolol, your heart rate is not as slow. Currently, you do not need a pacemaker implanted. STOP TAKING METOPROLOL from now on. Resume all your other medications; follow the most recent list of medications, since some were recently also changed by your Oncologist. Plan of Treatment: As above. Care Goals: Improvement in symptoms and stabilization are the goals. Assessment: These written directions are provided at discharge as a reminder for the patient and . No Smoking: If you smoke, Please STOP! Call for help. Follow-up with: Moy Schafer MD [Primary Care Provider] -
--- NOTE | 2021-01-15 10:33 | CONSULTATION NOTE ---
Consultation Report: Patient was scheduled for outpatient PICC line placement for 01/15/21. Patient was admitted for observation on 01/14/21. Consent was obtained from patient as well as telephone consent from Erica. Discussed possibility of hematoma and infection with patients pancytopenia. Pt and agreeable to PICC placement. See procedure note.
--- NOTE | 2021-01-15 10:35 | ANESTHESIA PROCEDURE NOTE ---
Anesth Central Line Template - Central Line Central Line Preparation: Consent Obtained, Time out completed, Ultrasound used, Sterile prep and drape Central line location: Left Basilic Central line type: PICC Single Lumen Central line catheter tip site resides: Superior vena cava (SVC) Central line aftercare: Secured, Placement confirmed, No complications, Bundle checklist complete, Pt tolerated well (4 Urdu single lumen placed. Catheter trimmed to 45 cm. Pt tolerated procedure well. Small amount of blood from site after dressing placement. Educated patient and RN to watch for bleeding and hematoma.)
--- NOTE | 2021-01-15 10:53 | DISCHARGE SUMMARY ---
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 He is followed by Leticia Garcia NP from Palliative Care. In the [facility] clinic today, he was noted to have bradycardia in 30-40's and was sent to the ER. Telemetry in the ER shows that he is in sinus rhythm at a rate of 60 and has paroxysms of A. fib with heart rates in the 30s. There are also frequent PVCs. The gave details of his history that his metoprolol dose of 25 was recently decreased to 12.5 mg. Review of EMR shows that he was recently hypotensive and that his Lisinopril was stopped and Tamsolusin dose was decreased. He has been having marked fatigue and some shortness of breath, there has been no syncope. His memory is worsening. Patient is being placed in Observation to stop all heart rate slowing meds, monitor for severe bradycardia and consider transfer for a permanent pacemaker implantation. The ER provider, Dr. Pickard, discussed the possibility of needing a pacemaker if stopping metoprolol does not correct the bradycardia, and both the patient and (at bedside) hesitated and stated they need to think about it. Review of this patient's POLST shows that he wants selective treat ment and is a DNR/DNI. Review of EMR of visits with Leticia Garcia NP showed that the would like their children to weigh in on decisions for the patient. - HOSPITAL COURSE Hospital Course: (1) Bradycardia This was partly from being on a beta-vania but he likely has underlying conduction system disease, since he has 1st degree AV block on EKG and now the new Afib. He was placed on telemetry and monitored while the metoprolol washed out. By the next day, resting heart rates were in the 60's, there were no more slow-Afib paroxysms seen. TSH and troponins x2 were WNL and an Echo showed apical and septal wall motion abnormality, LVEF 45%. He was discharged with orders to stop taking the Metoprolol. (2) Paroxysmal A-fib This is apparently a new rhythm for this patient, there is no prior history of A. fib in his medical record entries. TSH and troponins x2 were WNL and an Echo showed apical and septal wall motion abnormality, LVEF 45%. With his severe thrombocytopenia, no anticoagulant or antiplatelet agent can be used, for stroke prophylaxis. (3) AML (acute myeloblastic leukemia) He had Myelodysplastic syndrome which changed to to AML 1 month ago. There is a plan for chemo, transfusions, PICC line insertion, antibx for prophylaxis. He did get his scheduled PICC line inserted on 01/15/21 by Anesthesia. (4) Pancytopenia He had no signs of bleeding while here. He may need future transfusions, now via a PICC line. (5) Dementia Patient knew very little details of his entire past medical history. He told the Hospitalist that he still drives a car. If that is so, it may need to be discouraged and a DMV form completed and submitted. (6) Hx of coronary artery disease He had a prior NE and CAD and had a stent placed and attended cardiac rehab. He no longer goes to see a Machine Slat Basket Maker. His TIMA-inhibitor was stopped recently due to low BP, and now the B-vania is stopped. No aspirin is advised due to severe thrombocytopenia. (7) CKD (chronic kidney disease) His creatinine was 1.5. Review of records shows that his creatinine runs 1.2- 1.5. (8) Sleep apnea with use of continuous positive airway pressure (CPAP) Continue home CPAP device use. - ALLERGIES Allergies/Adverse Reactions: Allergies Allergy/AdvReac Type Severity Reaction Status Date / Time No Known Drug Allergies Allergy Verified 01/14/21 17:15 - MEDICATIONS Home Medications: Ambulatory Orders Medication Instructions Recorded Confirmed Doxazosin [Cardura] 2 mg PO DAILY 03/05/15 01/14/21 ondansetron HCL [Zofran] 8 mg PO Q6H PRN 05/05/20 01/14/21 Multivit-Min/FA/Lycopen/Lutein 1 tab PO DAILY 08/03/20 01/14/21 [Centrum Silver Men Tablet] Acyclovir [Zovirax] 400 mg PO BID 12/14/20 01/14/21 Levofloxacin [Levaquin] 500 mg PO DAILY 12/14/20 01/14/21 Sulfamethox/Trimeth 800/160 1 tablet PO DAILY 12/14/20 01/14/21 [Bactrim Ds] Venetoclax [Venclexta] 100 mg PO DAILY 12/22/20 01/14/21 Posaconazole [Noxafil] 300 mg PO DAILY 12/28/20 01/14/21 polyethylene glycoL 3350 [Miralax] 17 gm PO DAILY PRN 12/30/20 01/14/21 - PHYSICAL EXAM AT DISCHARGE General Appearance: positive: No acute distress, Alert Eyes Bilateral: positive: Normal inspection, EOMI ENT: positive: No signs of dehydration Neck: positive: Nml inspection, No JVD Respiratory: positive: No respiratory distress, Breath sounds nml Cardiovascular: positive: Regular rate & rhythm, No murmur Abdomen: positive: Non-tender, No distention Skin: positive: Warm, Dry Extremities: positive: Non-tender, No pedal edema Neurologic/Psychiatric: positive: Disoriented to person, Disoriented to time, Other (Non-focal grossly) - LABS Result Diagrams: 01/15/21 04:55 01/15/21 04:55 - DIAGNOSTIC IMAGING Diagnostic Imaging Results: Final report reviewed - FOLLOW UP Follow Up: See Oncology, Palliative Care and PCP as previously arranged. - TIME SPENT Time Spent in Discharge (Minutes): 20
--- NOTE | 2021-01-15 10:55 | XRAY Report ---
PROCEDURE: Chest for Line Placement INDICATIONS: PICC Line insertion TECHNIQUE: One view of the chest was acquired. COMPARISON: 09/14/2020 FINDINGS: Surgical changes and devices: Left-sided PICC line tip is seen projecting in the expected location of SVC.. Lungs and pleura: No pleural effusions or pneumothorax. Lungs are clear. Mediastinum: Mediastinal contours appear normal. Heart size is normal. Bones and chest wall: No suspicious bony lesions. Overlying soft tissues appear unremarkable. IMPRESSION: Left-sided PICC line tip is projecting in the expected location of SVC. No acute cardiopulmonary path ology. Reviewed by: Mychal Gallardo MD on 01/15/2021 10:54 AM PDT Approved by: Mychal Gallardo MD on 01/15/2021 10:54 AM PDT Station ID: [id number]
--- NOTE | 2021-01-15 12:07 | PHARMACY PROGRESS NOTE ---
- Best Possible Medication History Admit Date and Time: 01/14/21 1749 Processed by: Pharmacy Medication History completed: Yes Patient Interview: Completed Secondary Source(s): Physician records, Pharmacy records, Insurance records (PATIENT INTERVIEWED BY PHARMACY. PATIENT ABLE TO CONFIRM HOME MEDICATIONS. [facility] ALSO CALLED ) As the person ultimately responsible for medication therapy, providers are able to order a medication from an existing home medication list in [facility] via the "Reconcile Routine" prior to Confirmation of that medication by production support specialist. Such practice is discouraged except when the physician, in their clinical judgment, deems that a medical need exists for a medication without regard to previous use.
== END 2021-01-15 14:05 | disposition home or self-care (01) ==
LOC: ED 16:11 → MS2 17:49
PROVIDERS: ADMIT Internal Medicine; ATTEND Internal Medicine
DX: R00.1 Bradycardia, unspecified (principal); T44.7X5A Adverse effect of beta-adrenoreceptor antagonists, initial encounter; I48.0 Paroxysmal atrial fibrillation; C92.00 Acute myeloblastic leukemia, not having achieved remission; D61.818 Other pancytopenia; F03.90 Unspecified dementia, unspecified severity, without behavioral disturbance, psychotic disturbance, mood disturbance, and anxiety; I25.10 Atherosclerotic heart disease of native coronary artery without angina pectoris; I25.2 Old myocardial infarction; I12.9 Hypertensive chronic kidney disease with stage 1 through stage 4 chronic kidney disease, or unspecified chronic kidney disease; N18.9 Chronic kidney disease, unspecified; G47.30 Sleep apnea, unspecified; Z66 Do not resuscitate; Z95.5 Presence of coronary angioplasty implant and graft; Z79.899 Other long term (current) drug therapy; I44.0 Atrioventricular block, first degree
CPT/HCPCS: 36415; 71045; 80048; 80053; 83735; 84443; 84484; 85025; 85610; 87631; 93005; 93306; 99281; 99285; A9270; G0378; 0202U

== ENCOUNTER 2021-01-16 15:56 | Emergency (ER) | payer MEDICARE, OTHER ==
--- OUTSIDE RECORDS SUMMARY | 2021-01-16 16:01 | EXTERNAL MEDICAL SUMMARY RPT | Continuity of Care Document ---
:1940 Demographics Phone Unavailable Preferred Language Unknown Marital Status Unknown Holiness Affiliation Unknown Race Unknown Ethnic Group Unknown Author Organization [place] Address [address] [place] [address] Phone Social History date description facility [phone]
--- OUTSIDE RECORDS SUMMARY | 2021-01-16 16:22 | EXTERNAL MEDICAL SUMMARY RPT | Continuity of Care Document ---
:1940 Demographics Phone Unavailable Preferred Language Unknown Marital Status Unknown Church Affiliation Unknown Race Unknown Ethnic Group Unknown Author Organization [place] Address [address] [phone] Phone Social History date description facility [phone]
[2021-01-16 16:47] LABS: CLARITY,URINE CLOUDY (CLEAR)
[2021-01-16 16:49] LABS: BACTERIA,URINE Moderate /HPF (None Seen); BILIRUBIN,URINE COLOR INTERFERENCE (NEGATIVE); SQUAMOUS EPITHELIAL CELL,UR FEW Squamous (<= Few)
--- NOTE | 2021-01-16 17:49 | ED Physician Documentation ---
PD HPI HEAD INJURY - Stated complaint Stated Complaint: POSSIBLE UTI/EAR LAC - Chief complaint Chief Complaint: Laceration - History obtained from History obtained from: Patient - Additional information Additional information: 80-year-old gentleman undergoing treatment for acute leukemia. Recent admission for bradycardia which resolved with the cessation of metoprolol. Today this morning, his leg gave out on him and he fell. This was preceded by right-sided abdominal pain and he did hit his head on the way down without loss of consciousness. His main complaint is right sided abdominal pain but declines pain medication for that. Review of Systems Constitutional: reports: Fatigue Cardiac: denies: Chest pain / pressure, Palpitations Respiratory: denies: Dyspnea, Cough PD PAST MEDICAL HISTORY - Past Medical History Past Medical History: Yes Cardiovascular: Hypertension, NC Respiratory: Sleep apnea, CPAP use Neuro: Other Endocrine/Autoimmune: None GI: GERD, Chronic constipation, Diverticulitis : Benign prostate hypertrophy, Other HEENT: Dental implants Psych: Anxiety Musculoskeletal: Osteoarthritis, Fatigue Derm: None - Past Surgical History Past Surgical History: Yes General: Bowel surgery Ortho: Knee replacement, Shoulder arthroplasty, Spine surgery Cardiovascular: Coronary stent Derm: Other - Present Medications Home Medications: Ambulatory Orders Medication Instructions Recorded Confirmed Doxazosin [Cardura] 2 mg PO DAILY 03/05/15 01/14/21 ondansetron HCL [Zofran] 8 mg PO Q6H PRN 05/05/20 01/14/21 Multivit-Min/FA/Lycopen/Lutein 1 tab PO DAILY 08/03/20 01/14/21 [Centrum Silver Men Tablet] Acyclovir [Zovirax] 400 mg PO BID 12/14/20 01/14/21 Levofloxacin [Levaquin] 500 mg PO DAILY 12/14/20 01/14/21 Sulfamethox/Trimeth 800/160 1 tablet PO DAILY 12/14/20 01/14/21 [Bactrim Ds] Venetoclax [Venclexta] 100 mg PO DAILY 12/22/20 01/14/21 Posaconazole [Noxafil] 300 mg PO DAILY 12/28/20 01/14/21 polyethylene glycoL 3350 [Miralax] 17 gm PO DAILY PRN 12/30/20 01/14/21 Cefdinir 300 mg PO BID #20 cap 01/16/21 - Allergies Allergies/Adverse Reactions: Allergies Allergy/AdvReac Type Severity Reaction Status Date / Time No Known Drug Allergies Allergy Verified 01/16/21 16:05 - Social History Does the pt smoke?: No Smoking Status: Never smoker Does the pt drink ETOH?: Yes Does the pt have substance abuse?: No - Immunizations Immunizations are current?: Yes - POLST Patient has POLST: Yes POLST Status: DNR PD ED PE NORMAL - Vitals Vital signs reviewed: Yes - General General: Alert and oriented X 3, No acute distress - HEENT HEENT: PERRL, EOMI, Other - Neck Neck: Supple, no meningeal sign, No bony TTP (There is a scratch to the pinna of the left ear) - Cardiac Cardiac: RRR (With frequent extrasystoles) - Respiratory Respiratory: No respiratory distress, Clear bilaterally - Abdomen Abdomen: Soft, Other (Tender right mid abdomen without surgical signs) - Back Back: No CVA TTP, No spinal TTP - Derm Derm: Normal color, Warm and dry - Extremities Extremities: No deformity, No tenderness to palpate, Normal ROM s pain - Neuro Neuro: Alert and oriented X 3, Normal speech Results - Vitals Vitals: Vital Signs - 24 hr 01/16/21 01/16/21 01/16/21 16:06 17:44 18:40 Temperature 36.6 C Heart Rate 94 90 90 Respiratory 16 21 19 Rate Blood Pressure 94/57 L 121/75 118/73 O2 Saturation 93 94 95 01/16/21 19:41 Temperature Heart Rate 85 Respiratory 22 Rate Blood Pressure 118/66 O2 Saturation 94 Oxygen O2 Source Room air - Labs Labs: Laboratory Tests 01/16/21 01/16/21 01/16/21 16:27 18:10 18:10 WBC 0.4 L* RBC 2.86 L Hgb 8.9 L Hct 26.1 L MCV 91.3 MCH 31.1 H MCHC 34.1 RDW 15.5 H Plt Count 13 L* MPV 10.9 Neut # (Auto) 0.1 L* Lymph # (Auto) 0.3 L [place] # (Auto) 0.0 Eos # (Auto) 0.0 Baso # (Auto) 0.0 Absolute Nucleated RBC 0.00 Nucleated RBC % 0.0 Manual Slide Review Indicated WBC Morphology NORMAL APPEARANCE Platelet Estimate DECREASED (<130,000) Platelet Morphology NORMAL APPEARANCE RBC Morph Micro Appear 1+ ANISOCYTOSIS Sodium 136 Potassium 3.5 Chloride 106 Carbon Dioxide 20 L Anion Gap 10.0 BUN 28 H Creatinine 1.4 H Estimated GFR (MDRD) 49 L Glucose 110 H Calcium 9.2 Total Bilirubin 2.0 H AST 23 ALT 21 Alkaline Phosphatase 95 Total Protein 5.6 L Albumin 3.8 Globulin 1.8 L Albumin/Globulin Ratio 2.1 Urine Color ORANGE Urine Clarity CLOUDY Urine pH Ur Specific [place] Urine Protein Urine Glucose (UA) Urine Ketones Urine Occult Blood Urine Nitrite Urine Bilirubin COLOR INTERFERENCE Urine Urobilinogen Ur Leukocyte Esterase Urine RBC 6-10 H Urine WBC 6-10 H Ur Squamous Epith Cells FEW Squamous Urine Bacteria Moderate H Urine Culture Comments INDICATED PD MEDICAL DECISION MAKING - ED course ED course: 80-year-old gentleman undergoing chemotherapy for acute leukemia presents with right-sided abdominal pain and urinary complaints. Also a head injury from a near syncopal episode which mandates CT imaging given his profound thrombocytopenia is not an acute issue per se. CT imaging of the head was negative. CT imaging of the belly done with IV contrast demonstrates fecal impaction, distended bladder, inguinal hernias, and other findings. Suspect most of his illness is due to UTI related to fecal impaction and preferred to do enema at home. 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, in relapse Head injury Qualifiers: Encounter type: initial encounter Qualified Code(s): S09.90XA - Unspecified injury of head, initial encounter UTI (urinary tract infection) Qualifiers: Urinary tract infection type: acute cystitis Hematuria presence: without hematuria Qualified Code(s): N30.00 - Acute cystitis without hematuria Condition: Good Record reviewed to determine appropriate education?: Yes Instructions: ED Impaction Fecal Treated Prescriptions: Cefdinir 300 mg PO BID #20 cap Comments: We will culture your urine, if a resistant organism is identified we will call you for change in antibiotics within the next few days. Return in the interim if worsening.
[2021-01-16] MEDS ORDERED: IOPAMIDOL-300 100 ML VIAL ONE (18:02)
[2021-01-16 18:20] LABS: HCT - HEMATOCRIT 26.1 % (42.0-52.0); HGB - HEMOGLOBIN 8.9 g/dL (14.0-18.0); LYMPHOCYTES # (AUTO) 0.3 10^3/uL (1.5-3.5); LYMPHOCYTES % (AUTO) 75.6 %; MEAN CORPUSCULAR HEMOGLOBIN 31.1 pg (27.0-31.0); MEAN CORPUSCULAR HGB CONC 34.1 g/dL (32.0-36.0); MEAN CORPUSCULAR VOLUME 91.3 fL (80.0-94.0); MEAN PLATELET VOLUME 10.9 fL (7.4-11.4); MONOCYTES % (AUTO) 4.9 %; NEUTROPHILS % (AUTO) 17.1 %; RED BLOOD COUNT 2.86 10^6/uL (4.70-6.10); RED CELL DISTRIBUTION WIDTH 15.5 % (12.0-15.0)
[2021-01-16 18:23] LABS: NEUTROPHILS # (AUTO) 0.1 10^3/uL (1.5-6.6); PLT - PLATELET COUNT 13 10^3/uL (130-450); SLIDE REVIEW? Indicated; WHITE BLOOD COUNT 0.4 x10^3/uL (4.8-10.8)
[2021-01-16 18:30] LABS: ALBUMIN 3.8 g/dL (3.2-5.5); ALBUMIN/GLOBULIN RATIO 2.1 (1.0-2.2); CALCIUM 9.2 mg/dL (8.5-10.3); CREATININE 1.4 mg/dL (0.6-1.2); POTASSIUM 3.5 mmol/L (3.5-5.0); TOTAL PROTEIN 5.6 g/dL (6.7-8.2)
[2021-01-16] MEDS ORDERED: oxyCODONE 5 MG TABLET PO STA (18:50)
[2021-01-16 18:54] LABS: PLATELET ESTIMATE, MANUAL DECREASED (<130,000) (NORMAL); PLATELET MORPHOLOGY NORMAL APPEARANCE (NORMAL); RBC MORPHOLOGY (MULTIPLE) 1+ ANISOCYTOSIS (NORMAL)
[2021-01-16 18:55] LABS: WBC MORPHOLOGY (MULTIPLE) NORMAL APPEARANCE (NORMAL)
--- NOTE | 2021-01-16 19:18 | CT Report ---
PROCEDURE: HEAD WO INDICATIONS: head inj, thrombocytopenia TECHNIQUE: Noncontrast 4.5 mm thick angled axial sections acquired from the foramen magnum to the vertex. For r adiation dose reduction, the following was used: automated exposure control, adjustment of mA and/or kV according to patient size. COMPARISON: None. FINDINGS: Image quality: Excellent. CSF spaces: Basal cisterns are patent. No extra-axial fluid collections. Ventricles are normal in size and shape. Brain: No midline shift. No intracranial masses or hemorrhage. Xie-white matter interface is norm al. Age-appropriate volume loss and small vessel ischemic change. Skull and face: Calvarium and visualized facial bones are intact, without suspicious lesions. Sinuses: Visualized sinuses and mastoids are clear. IMPRESSION: Negative head CT for patient age. No evidence of acute stroke, hemorrhage, or mass. Reviewed by: Tony Esteban MD on 01/16/2021 7:16 PM PDT Approved by: Tony Esteban MD on 01/16/2021 7:16 PM PDT Station ID: [id number]
[2021-01-16] MEDS ORDERED: IOPAMIDOL-300 100 ML VIAL IVP ONE (19:20)
--- NOTE | 2021-01-16 19:31 | CT Report ---
PROCEDURE: Abdomen/Pelvis W INDICATIONS: R abd pain, IV only, use PICC CONTRAST: IV CONTRAST: Isovue 300 ml: 100 PO CONTRAST: *NO PO CONTRAST TECHNIQUE: After the administration of intravenous contrast, 5 mm thick sections acquired from the diaphragms to the symphysis. 5 mm thick coronal and sagittal reformats were acquired. For radiation dose reducti on, the following was used: automated exposure control, adjustment of mA and/or kV according to jeff ent size. COMPARISON: 03/31/2018 FINDINGS: Image quality: Excellent. ABDOMEN: Lung bases: Lung bases are clear. Heart size is normal. Very minimal pericardial effusion. Solid organs: Liver and spleen are normal in size and enhancement. Gallbladder is surgically absent . Biliary system is non dilated. Pancreas enhances normally. No adrenal nodules. Kidneys demonstr ate normal size and enhancement, without hydronephrosis. Peritoneum and bowel: Bowel loops demonstrate normal wall thickness and caliber. Rectal fecal impac tion. Moderately large fecal load. No free fluid or air. Nodes and vessels: No retroperitoneal or mesenteric adenopathy by size criteria. Aorta and inferior vena cava are normal in size. Incidental note is made of the presence of a circumaortic left renal v ein. Miscellaneous: No ventral hernias. PELVIS: Genitourinary: Bladder is distended. It has a thin wall. There is a prominent left base of bladder di verticulum. No bladder stone. Relatively mild prostate hypertrophy. Miscellaneous: Bilateral fat-containing inguinal hernias, left greater than right. Bones: No suspicious bony lesions. No vertebral body compression fractures. Lumbar degenerative sushil nge with canal stenosis at L3-L4 and L4-L5. IMPRESSION: 1. No evidence of acute abdominal process. 2. Moderately large fecal debris, rectal fecal impaction. 3. Distended bladder with prominent left base of bladder diverticulum. 4. Bilateral fat-containing inguinal hernias. 5. Remote cholecystectomy. 6. Lumbar degenerative change with canal stenosis at L3-L4 and L4-L5. Reviewed by: Tony Esteban MD on 01/16/2021 7:30 PM PDT Approved by: Tony Esteban MD on 01/16/2021 7:30 PM PDT Station ID: [id number]
[2021-01-16 19:43] VITALS: BP 118/66
== END 2021-01-16 20:15 | disposition home or self-care (01) ==
LOC: ED 15:56
DX: S09.90XA Unspecified injury of head, initial encounter (principal); W19.XXXA Unspecified fall, initial encounter; C92.A2 Acute myeloid leukemia with multilineage dysplasia, in relapse; D69.6 Thrombocytopenia, unspecified; I10 Essential (primary) hypertension; K56.41 Fecal impaction; N30.00 Acute cystitis without hematuria
CPT/HCPCS: 70450; 74177; 80053; 81001; 85025; 87086; 99284; A9270; Q9967

== ENCOUNTER 2021-01-27 13:00 | Outpatient (CLI) | payer MEDICARE, OTHER ==
--- NOTE | 2021-01-27 15:24 | CONSULTATION NOTE ---
Palliative Care Follow Up - Referral Referring Provider: Dr. David Alexander Time of Visit: [id number] Referral setting: Home Referral Reason: AML/Dementia/bradycardia - Information Sources Records reviewed: Previous records reviewed History/Review of Systems obtained from: Patient, Family ( Erica) Exam limitations: Clinical condition (patient with moderate memory deficits; with mild) - History of Present Illness Update Brief HPI Update: This is an 80-year-old gentleman who is in recently transitioned from MDS to acute myeloid leukemia, based on BMA 12/03/2020. He has been receiving azacitidine and venetoclax, continues needing blood product support. He did receive 1 unit on Monday. He is also on prophylactics antibiotics of valacyclovir 500 mg twice daily, levofloxacin 500 mg daily and posaconazole 300 mg daily. He also has continuing his Bactrim on a daily basis. Patient recently hospitalized for bradycardia, his metoprolol was stopped, most likely due to interaction with his antifungal. Today his pulse is steady at 72, his blood pressure is 108/72, he is also been discontinued off his lisinopril, and his tamsulosin has been decreased to 2 mg. He does have some difficulty getting from sitting to standing, denies this is dizziness but feels it is balance. He continues with worsening cognitive status, but is able to converse and engage in conversation. Just has significant short-term memory issues. This is caused complications with his medication adherence, palliative care claudia ng a home visit and follow-up regarding this. Patient also had a fall on 01/16, with skin tear and injury on his left elbow, these have thick eschar, but no signs or symptoms of infection. He does have a small skin tear on his right forearm, it is slightly red, has been instructed to clean daily and apply Neosporin. Patient denies pain, he does have some fatigue, currently no nausea, good appeti te, denies depressed mood. His family from [place], including his son [id number] and grandkids came to visit, they very much enjoyed this. Their daughter from [facility] is coming for a few days this weekend as well. He says that this is his priority, and makes his quality of life worth living. 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 Support System: Patient lives at home with his sabi Desiree, they live in a trilevel with significant fall risk potential. Patient did serve in the [employer], worked in [employer], he and his have been 55 years. They have 2 daughters and his son. Their son is taken over seeing their finances which has been of help, did explore other ways that they might be able to increase support and decrease their stressors. Medications/Allergies - Medications Home Medications: Ambulatory Orders Medication Instructions Recorded Confirmed Doxazosin [Cardura] 2 mg PO DAILY 03/05/15 01/27/21 ondansetron HCL [Zofran] 8 mg PO Q6H PRN 05/05/20 01/27/21 Multivit-Min/FA/Lycopen/Lutein 1 tab PO DAILY 08/03/20 01/27/21 [Centrum Silver Men Tablet] Acyclovir [Zovirax] 400 mg PO BID 12/14/20 01/27/21 Levofloxacin [Levaquin] 500 mg PO DAILY 12/14/20 01/27/21 Sulfamethox/Trimeth 800/160 1 tablet PO DAILY 12/14/20 01/27/21 [Bactrim Ds] Venetoclax [Venclexta] 100 mg PO DAILY 12/22/20 01/27/21 Posaconazole [Noxafil] 300 mg PO DAILY 12/28/20 01/27/21 polyethylene glycoL 3350 [Miralax] 17 gm PO DAILY PRN 12/30/20 01/27/21 Fexofenadine HCl 180 mg PO DAILY 01/27/21 01/27/21 - Allergies Allergies/Adverse Reactions: Allergies Allergy/AdvReac Type Severity Reaction Status Date / Time No Known Drug Allergies Allergy Verified 01/16/21 16:05 Review of Systems - Constitutional Constitutional: reports: Fatigue (fluctuating), Weakness, Weight stable - Eyes Eyes: reports: Vision loss, Corrective lenses - Ears, Nose & Throat Ears, Nose & Throat: reports: Hearing loss, Nasal congestion (attributes to allergies) - Cardiovascular Cardiovascular: reports: Irregular heart rate, Exertional dyspnea, Decr. exercise tolerance - Respiratory Respiratory: reports: Cough (with allergies), SOB with exertion, Other (CPAP). denies: SOB at rest - Gastrointestinal Gastrointestinal: reports: Good appetite. denies: Constipation (reports going regularly), Nausea - Genitourinary Genitourinary: reports: Dysuria (baselin), Frequency - Musculoskeletal Musculoskeletal: reports: Back pain, Muscle aches, Stiffness, Muscle weakness, Assistive devices (uses cane), Other (c/o balance issues) - Integumentary Integumentary: reports: Dryness - Neurological Neurological: reports: General weakness, Memory problems (worsening; some insight), Abnormal gait - Psychiatric Psychiatric: reports: Anxiety - Hematologic/Lymphatic Hematologic/Lymph: reports: Anemia (received one unit Monday). denies: Recurrent infections (had received rX cefidenr at ED/urine was clear had not picked up nor taken) - All Other Systems All Other Systems: reports: Reviewed and negative Physical Exam - Vital Signs Temperature: 97.9 C Pulse Rate: 80 Respiratory Rate: 18 O2 Saturation: 98 (ra @ rest) Blood Pressure: 108/72 - Physical Exam General Appearance: positive: No acute distress, Alert. negative: Anxious (doing well today) Eyes Bilateral: positive: Normal inspection ENT: positive: No signs of dehydration Cardiovascular: positive: Regular rate & rhythm. negative: Bradycardia Respiratory: positive: No respiratory distress, Breath sounds nml Abdomen: positive: Soft, Tenderness (ruq with deep palpation) Skin: positive: Pallor, Dryness, Wound (scabbed eschar on left elbow; left ear healing bandaid intact; small area red skin tear right forearm), Other Neurologic/Psychiatric: positive: Mood/affect nml, Disoriented to time, Weakness, Flat affect Palliative Care - POLST Patient has POLST: Yes POLST Status: DNR, Selective Treatment Pain: No pain Tiredness/Fatigue: Moderate (4-6) Drowsiness/Sedation: Mild (1-3) Nausea: None Anorexia: None Dyspnea: Moderate (4-6) Depression: Mild (1-3) Anxiety: Mild (1-3) Feelings of wellbeing/Perceived Quality of Life: Good, Acceptable, Improved Sleep: Sleeps well Constipation: Yes, Managed Performance Status: .Patient is having decreased activity tolerance, does have trouble getting from sitting to standing. He is quite mindful and fearful of falling. He is able to ambulate short distances, they do have a trilevel which is challenging as far as going up and down the stairs. He is able to manage his ADLs, his does provide oversight and some cueing secondary to his memory. I would put him at a PPS of 70% - Palliative Care Discussion: Patient and both understand the seriousness of his illness, he is currently continuing with treatment. He is feeling much more positive with the visits from his children, his son and his family came from [place] this last week, his daughter from [facility] who is coming next week. He reports this is what causes him to want to continue, to be with his family this is a priority. Patient and are Taoist, they do 830 mass on TV. Father Chirs has been visiting, has done ointment to the healing and has been very supportive for them. His hopeful goal is to make it to April [birth year] for his 81nd birthday, family is coming out and hoping for family reunion. They do state quite connected, he continues to be grateful for his current time he has. At this point in time though he has had multiple complaints, he feels his current quality of life is still worth living. His is obviously concerned, finds his memory is worsening, but continues to take it a day at a time. Results - Lab Results Lab results reviewed: Yes Impression and Recommendations - Palliative Care Impression: This is an 80-year-old gentleman who continues to receive treatment for his acute myeloid leukemia. Patient has had some difficulty with medication adherence, reviewed again today and updated list as well as had patient provide return demonstration. Patient continues to have both cognitive and functional decline, but still perceives his quality of life acceptable. Palliative care continue to provide support for symptom management and anticipatory guidance. Recommendations/Counseling Done: 1. Medication adherence. This is continue be quite problematic, patient did not take his cefdinir, though in review of microbiology/UA no growth. Patient was able to show me his current system, and has been taking his medications correctly. to reorder posaconazole, and patient adding Jen to his daily regimen secondary to worsening allergy symptoms. 2. Allergies. Patient having coughing and choking with postnasal drip, does find this quite distressing as well as his . Is been responsive to the Jen. We will have patient take on a regular basis, given the severity of his symptoms. 3. AML. Patient is on active treatment, remains at high risk for sequela of infection, bleeding, and hospitalization. Patient also high risk for falls particularly in his current trilevel home setting, and patient has balance issues. Reviewed safety, signs and symptoms of infection, and when to contact PCP or oncology clinic. 4. Advanced care planning. Continue to revisit patient's goals of care, they continue to feel somewhat exhausted and overwhelmed. At this point in time patient very pleased with his visits with family, he reports this is his priority and what makes life worth living. Patient does have some insight into the seriousness of his illness, continues to hope for the best, and hopeful for some time this summer. Counseling and psychological support given regarding patient's goals of care, processing fears and concerns, and addressing coping and support. .60 minutes with greater than 50% of this done in counseling regarding symptom management, signs and symptoms of infection, medication adherence, and anticipatory guidance
== END 2021-01-27 13:01 | disposition home or self-care (01) ==
LOC: PC 13:00
PROVIDERS: ATTEND Nurse Practitioner Adult Health
DX: Z51.5 Encounter for palliative care (principal); T78.40XA Allergy, unspecified, initial encounter; C93.00 Acute monoblastic/monocytic leukemia, not having achieved remission; Z91.81 History of falling; Z79.899 Other long term (current) drug therapy; Z66 Do not resuscitate
CPT/HCPCS: 99350

== ENCOUNTER 2021-03-19 11:00 | Outpatient (CLI) | payer MEDICARE, OTHER ==
--- NOTE | 2021-03-20 19:30 | CONSULTATION NOTE ---
Palliative Care Follow Up - Referral Referring Provider: Dr. 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 He has been receiving azacitidine and Venetoclax, unfortunately has not been taking his venetoclax as best we can tell for about 2 weeks. He has continued need blood product support, mostly recently was transfused on 615 and 616 with packed red blood cells. His platelets have been holding with last count on 03/15. According to oncology, anticipating another bone marrow secondary to ongoing cytopenia. He does remain at high risk for his persistent neutropenia at 0.8 L. He currently has a PICC line, which is being serviced by Lexa on a weekly basis, and most recently presented with hyperbilirubinemia at 1.8. In context also with his disease process, patient does have mild dementia, with worsening short-term memory deficits. He does have awareness of this, adding to the complexity is his has short-term memory issues also as well as trying to keep up is getting overwhelmed. Patient has finally given up driving. They live in a multilevel house with multiple stairs, and their bedroom on the top level. He has had falls in the past but no recent. He does still bruise quite easily. He does have intermittent dizziness, but has been walking around with a cane. He also has severe BPH, with fluctuating symptoms. They have been resistant recently to home visit secondary to multiple MAC appointments, but did allow for home visit today. Both are quite fatigued, patient does understand the seriousness of his illness, but is fairly pragmatic and suspect both of them would not understand the implications of transitioning to end-of-life. Patient does have worsening fatigue, denies any pain, has had some intermittent nausea but no vomiting, no chest pain, pulse is remained above 60, does have intermittent constipation, and continues to be overwhelmed and struggle with medication management. 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 Support System: Patient lives at home with his sabi Desiree, they live in a trilevel with significant fall risk potential. Patient did serve in the [employer], worked in [employer], he and his have been 55 years. They have 2 daughters and a son, their son has recently visited with his family, his daughters are coming for his birthday/reunion 04/05. Her son is taken over their finances which is it and his huge stressor for them, they have recently got some cleaning assistance. Medications/Allergies - Medications Home Medications: Ambulatory Orders Medication Instructions Recorded Confirmed Doxazosin [Cardura] 2 mg PO DAILY MDD 4 mg 03/05/15 03/21/21 ondansetron HCL [Zofran] 8 mg PO Q6H PRN 05/05/20 03/21/21 Multivit-Min/FA/Lycopen/Lutein 1 tab PO DAILY 08/03/20 03/21/21 [Centrum Silver Men Tablet] Acyclovir [Zovirax] 400 mg PO BID 12/14/20 03/21/21 Sulfamethox/Trimeth 800/160 1 tablet PO DAILY 12/14/20 03/21/21 [Bactrim Ds] levoFLOXacin [Levaquin] 500 mg PO DAILY 12/14/20 03/21/21 Venetoclax [Venclexta] 100 mg PO DAILY 12/22/20 03/01/21 Posaconazole [Noxafil] 300 mg PO DAILY 12/28/20 03/21/21 polyethylene glycoL 3350 [Miralax] 17 gm PO DAILY PRN 12/30/20 03/21/21 Fexofenadine HCl 180 mg PO DAILY 01/27/21 03/21/21 guaiFENesin [Mucinex Fast-Max 20 ml PO BID PRN 03/21/21 03/21/21 Chest-Congest] - Allergies Allergies/Adverse Reactions: Allergies Allergy/AdvReac Type Severity Reaction Status Date / Time No Known Drug Allergies Allergy Verified 02/15/21 16:31 Review of Systems - Constitutional Constitutional: reports: Fatigue (worsening), Weakness, Weight stable - Eyes Eyes: reports: Vision loss, Corrective lenses - Ears, Nose & Throat Ears, Nose & Throat: reports: Hearing loss, Nasal congestion (attributes to allergies; causes cough), Postnasal drainage - Cardiovascular Cardiovascular: reports: Irregular heart rate, Exertional dyspnea, Decr. exercise tolerance - Respiratory Respiratory: reports: Cough (with allergies), SOB with exertion, Other (CPAP). denies: SOB at rest - Gastrointestinal Gastrointestinal: reports: Constipation (intermittent; forgets to take miralax), Nausea (with "shots" no vomiting; took ondansetron 2x last week), Good appetite - Genitourinary Genitourinary: reports: Dysuria (baseline; takes pyridium daily; had UA at PCP no results but over week ago), Frequency - Musculoskeletal Musculoskeletal: reports: Back pain, Muscle aches, Stiffness, Muscle weakness, Assistive devices (uses cane), Other (c/o balance issues) - Integumentary Integumentary: reports: Dryness - Neurological Neurological: reports: General weakness, Memory problems (worsening; some insight), Abnormal gait - Psychiatric Psychiatric: reports: Anxiety - Hematologic/Lymphatic Hematologic/Lymph: reports: Anemia. denies: Recurrent infections (had received rX cefidenr at ED/urine was clear had not picked up nor taken) - All Other Systems All Other Systems: reports: Reviewed and negative Physical Exam - Vital Signs Temperature: 97.2 C Pulse Rate: 68 Respiratory Rate: 18 O2 Saturation: 97 (ra @ rest) Blood Pressure: 112/58 (102/42) - Physical Exam General Appearance: positive: No acute distress, Alert. negative: Anxious (doing well today) Eyes Bilateral: positive: Normal inspection ENT: positive: No signs of dehydration Cardiovascular: positive: Regular rate & rhythm. negative: Bradycardia Respiratory: positive: No respiratory distress, Breath sounds nml Abdomen: positive: Soft, Tenderness (ruq with deep palpation) Skin: positive: Pallor, Dryness, Bruising Extremities: positive: No pedal edema Neurologic/Psychiatric: positive: Mood/affect nml, Disoriented to time, Weakness, Flat affect Palliative Care - POLST Patient has POLST: Yes POLST Status: DNR, Selective Treatment Pain: No pain Tiredness/Fatigue: Moderate (4-6) Drowsiness/Sedation: Mild (1-3) Nausea: Mild (1-3) Anorexia: None Anxiety: Mild (1-3) Feelings of wellbeing/Perceived Quality of Life: Good, Acceptable, Worsening Sleep: Sleeps well Constipation: Yes, Intermittent constipation Performance Status: Patient is experiencing some decline in functional status, poor activity tolerance. Is quite sedentary, but does walk [id number] out to the mailbox. He tries not to do many trips up and down the stairs, it is a winding multilevel house with several steps on different levels. He is able to manage his own ADLs currently. - Palliative Care Discussion: Both patient and his very much enjoyed the visit with her son and grandchild. They have had lots of stressors with the treatment schedule, and recent replacement of the hot water heater. Patient is quite dependent on , has some short-term memory issues as well and does get overwhelmed at times. Both her daughters are coming for visit 04/05 for a reunion and for his birthday. To continue to go along with the treatment, though recognize that things are very tenuous. Do not have a plan or insight how they are going to manage when he continues to decline. Suggested we have a family meeting whether here, to do some preplanning, will reach out to daughter. Spoke with patient, he is quite fatigued and tired. He reports he does not worry though does understand this is nocturnal last forever. He does perceive his current quality of life is acceptable, and very much adores his . Results - Lab Results Lab results reviewed: Yes Impression and Recommendations - Palliative Care Impression: This is a fragile 80-year-old gentleman who continues to receive treatment for his acute myeloid leukemia, unfortunately has not been taking his venetoclax for about 2 weeks due to misunderstanding. Patient continues to have slow functional and cognitive decline, but still perceives his quality of life is acceptable. He presents with moderate symptom burden, with fatigue, intermittent nausea, mild anxiety and depression. Palliative care continue provide support for symptom management and anticipatory guidance. Recommendations/Counseling Done: 1. AML. Patient remains on active treatment, remains at high risk for sequela of infection, bleeding, and hospitalization. Unfortunately patient is not been taking his venetoclax, follow-up with oncology team regarding patient's misunderstanding. Unable to locate any directions given otherwise, communicated to oncology regarding mistake. 2. Medication adherence. This continues to be quite problematic. Patient does not take from Mediset, found this too confusing. Unfortunately he has no way to double check, written list provided yet again, as well as reviewed medications, he has been laid out on the table in the bottles. is overwhelmed, does remind him to take them, but does not double check nor I suspect understand also what he is taking. 3 Allergies. Patient continues have difficulty with postnasal drip, has been using both Mucinex, for some reason stopped the Jen. Put Jen back in the line up and on his list, as this is been effective in the past. 4. Fatigue. This is multifactorial, patient is at high risk for falls, does have some orthostatic changes, encouraged to keep up with fluids particularly in the hot weather. Patient tries to be careful as far as getting from sitting to standing, using cane for balance, but remains at high risk for sequela from falls. 5. Constipation. Patient does have intermittent constipation, does complain of some hemorrhoidal pain. Does have Preparation H, instructed needs to take his MiraLAX daily, important to keep bowels soft and moving particularly in the context of his risk for infection. 6. BPH. Patient has fluctuating symptoms regarding his BPH, he is up frequently, did discuss possibly resuming his full dose of Cardura, due to patient's poor recall unclear if worse since change in dosing. After much discussion, I did write down this is a possibility he found it more difficulty are complex, otherwise we will keep at half tab. Patient does take Pyridium at least daily in am secondary to discomfort with voiding. 7. Advanced care planning. Continue to revisit patient's goals of care, they feel somewhat exhausted and overwhelmed but patient is still pleased with visits from family and feels his quality of life is acceptable. Am concerned regarding patient's ability to manage end-of-life in his current home setting, daughters are coming to visit mid-Month, will reach out for family conference. 60 minutes with greater than 50% of this done in counseling, review of medications, facilitating communication with oncology, symptom management, and anticipatory guidance.
== END 2021-03-19 11:01 | disposition home or self-care (01) ==
LOC: PC 11:00
PROVIDERS: ATTEND Nurse Practitioner Adult Health
DX: Z51.5 Encounter for palliative care (principal); C92.00 Acute myeloblastic leukemia, not having achieved remission; T50.996A Underdosing of other drugs, medicaments and biological substances, initial encounter; Z91.138 Patient's unintentional underdosing of medication regimen for other reason; T78.40XA Allergy, unspecified, initial encounter; R53.83 Other fatigue; K59.00 Constipation, unspecified; N40.0 Benign prostatic hyperplasia without lower urinary tract symptoms; F03.90 Unspecified dementia, unspecified severity, without behavioral disturbance, psychotic disturbance, mood disturbance, and anxiety; Z79.899 Other long term (current) drug therapy; Z66 Do not resuscitate
CPT/HCPCS: 99350

== ENCOUNTER 2021-04-01 10:02 | Outpatient (CLI) | payer MEDICARE, OTHER ==
[2021-04-01] MEDS ORDERED: LACTATED RINGERS 1,000 ML IV ONE ×2 (10:05→12:06)
[2021-04-01] MEDS ORDERED: BUFFERED LIDOCAINE 10 ML SYRINGE ONE (10:41)
[2021-04-01] MEDS ORDERED: MIDAZOLAM 2 MG/2 ML VIAL ONE (10:46)
[2021-04-01] MEDS ORDERED: fentaNYL 100 MCG/2 ML VIAL ONE (10:47)
[2021-04-01 12:46] VITALS: BP 98/55
[2021-04-01] MEDS ORDERED: BUFFERED LIDOCAINE 10 ML SYRINGE IU ONE (16:02)
--- NOTE | 2021-04-01 16:14 | CT Report ---
PROCEDURE: BONE MARROW BX Sedation analgesia for 15 minutes. INDICATIONS: AML FROM MDS TECHNIQUE: The indications, alternatives, benefits, risks, and possible complications of the procedure were comm unicated to the patient. Informed written consent from the patient was obtained and placed in the art. Continuous EKG and hemodynamic monitoring was started by trained personnel. For radiation dose reduction, the following was used: automated exposure control, adjustment of mA and/or kV according to patient size. The patient was brought to the CT suite and jersey knitter spiral CT imaging was performed with localization g rid. The appropriate site for percutaneous access to the biopsy target was marked, was prepped and d raped sterilely, and was infused with local anaesthesia. Under CT guidance, a core biopsy trocar and needle set was advanced to the biopsy target, and specimen(s) were obtained. Bone marrow aspiration as well as bone marrow core sample were obtained. The trocar and needle were then removed, and the pa tient was sent for post-procedure monitoring. COMPARISON: None. FINDINGS: Biopsy site: Left posterior iliac Needle: 18-gauge gauge Arrow biopsy device with introducer trocar. Number of passes: 1 Medications: 1% lidocaine for local anaesthesia. IV Fentanyl and Versed for conscious sedation for 15 minutes (see nursing record). Complications: None. IMPRESSION: Successful CT-guided biopsy of left posterior iliac bone marrow. Reviewed by: Jojo Rossi MD on 04/01/2021 4:13 PM PDT Approved by: Jojo Rossi MD on 04/01/2021 4:13 PM PDT Station ID: [id number]
== END 2021-04-01 10:03 | disposition home or self-care (01) ==
LOC: DI 10:02
PROVIDERS: ATTEND Physician Assistant
DX: C92.02 Acute myeloblastic leukemia, in relapse (principal); D61.818 Other pancytopenia
CPT/HCPCS: 38222; 77012; J7120; 38221

== ENCOUNTER 2021-05-20 11:00 | Outpatient (CLI) | payer MEDICARE, OTHER ==
--- NOTE | 2021-05-20 17:43 | CONSULTATION NOTE ---
Palliative Care Follow Up - Referral Referring Provider: Dr. David Alexander Time of Visit: 08-06 Referral setting: Home Referral Reason: AML/Dementia/Med adherence - Information Sources Records reviewed: Previous records reviewed History/Review of Systems obtained from: Patient, Family (Desiree ) Exam limitations: Clinical condition (both patient and with STM issues; patient with poor recall and is mostly in the immediate) - History of Present Illness Update Brief HPI Update: This is a sabi 81-year-old gentleman who transitioned from MDS to AML, 11/2020. He received azacitidine and venetoclax with bone marrow biopsy showing complete response 03/2021, now is on maintenance dose of Azacitidine and venetoclax. Patient has been on infection prophylactics, related to prolonged neutropenia, his ANC is currently normal. Though he does still remain high risk for infection, and recently had a PICC line removed as a result. He has been having difficulty with medication adherence, both he and his have short-term memory issues, and concerns for patient taking medications correctly. They both are struggling to be able to help me understand what he is currently taking, has had recent fall and has been feeling quite poorly and less able to participate in patient's care. Patient is quite pleased that he continues along, he does understand at some level the seriousness of his illness. They had both daughters and their families up for patient's 81nd birthday, and very much enjoyed the visits. Their son came up briefly also for a short visit. 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 Support System: Patient lives with his Desiree, they live in a trilevel with significant fall risk potential. currently only able to go the stairs in the a.m. and p.m. secondary to her knees. They have 2 daughters and a son, her son has taken over the finances which is a huge stressor for them. They have now got some cleaning assistance twice a month. Daughter is trying to help remind them and monitor from appointments. 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 Medications/Allergies - Medications Home Medications: Ambulatory Orders Medication Instructions Recorded Confirmed Doxazosin [Cardura] 2 mg PO DAILY MDD 4 mg 03/05/15 05/20/21 ondansetron HCL [Zofran] 8 mg PO Q6H PRN 05/05/20 05/20/21 Multivit-Min/FA/Lycopen/Lutein 1 tab PO DAILY 08/03/20 05/20/21 [Centrum Silver Men Tablet] Acyclovir [Zovirax] 400 mg PO BID 12/14/20 05/20/21 Sulfamethox/Trimeth 800/160 1 tablet PO DAILY MDD HOLD 12/14/20 05/20/21 [Bactrim Ds] levoFLOXacin [Levaquin] 500 mg PO DAILY MDD HOLD 12/14/20 05/20/21 Venetoclax [Venclexta] 100 mg PO DAILY MDD 14days on 12/22/20 05/20/21 14days off Posaconazole [Noxafil] 300 mg PO DAILY MDD HOLD 12/28/20 05/20/21 polyethylene glycoL 3350 [Miralax] 17 gm PO DAILY PRN 12/30/20 05/20/21 guaiFENesin [Mucinex Fast-Max 20 ml PO BID PRN 03/21/21 05/20/21 Chest-Congest] Loratadine [Claritin] 10 mg PO DAILY PRN 05/20/21 05/20/21 Phenazopyridine [Pyridium] 100 mg PO TID PRN 05/21/21 05/21/21 - Allergies Allergies/Adverse Reactions: Allergies Allergy/AdvReac Type Severity Reaction Status Date / Time No Known Drug Allergies Allergy Verified 02/15/21 16:31 Review of Systems - Constitutional Constitutional: reports: Fatigue (worsening), Weakness, Weight stable - Eyes Eyes: reports: Vision loss, Corrective lenses - Ears, Nose & Throat Ears, Nose & Throat: reports: Hearing loss, Nasal congestion (attributes to allergies; causes cough), Postnasal drainage - Cardiovascular Cardiovascular: reports: Irregular heart rate, Exertional dyspnea, Decr. exercise tolerance - Respiratory Respiratory: reports: Cough (with allergies), SOB with exertion, Other (CPAP). denies: SOB at rest - Gastrointestinal Gastrointestinal: reports: Constipation (intermittent; forgets to take miralax unable to quantify), Early satiety (eating smaller portions) - Genitourinary Genitourinary: reports: Dysuria (baseline; takes pyridium daily;), Frequency - Musculoskeletal Musculoskeletal: reports: Back pain, Muscle aches, Stiffness, Muscle weakness, Assistive devices (uses cane), Other (c/o balance issues) - Integumentary Integumentary: reports: Dryness - Neurological Neurological: reports: General weakness, Memory problems (worsening; some insight), Abnormal gait - Psychiatric Psychiatric: reports: Anxiety - Hematologic/Lymphatic Hematologic/Lymph: reports: Anemia (9.5), Recurrent infections (PICC line removed related to infection) - All Other Systems All Other Systems: reports: Reviewed and negative Physical Exam - Vital Signs Temperature: 97.3 C Pulse Rate: 55 Respiratory Rate: 18 O2 Saturation: 98 (ra @ rest) Blood Pressure: 118/54 - Physical Exam General Appearance: positive: No acute distress, Alert. negative: Anxious (doing well today) Eyes Bilateral: positive: Normal inspection ENT: positive: No signs of dehydration Cardiovascular: positive: Regular rate & rhythm. negative: Bradycardia Respiratory: positive: No respiratory distress, Breath sounds nml Abdomen: positive: Soft Skin: positive: Pallor, Dryness, Bruising Extremities: positive: No pedal edema Neurologic/Psychiatric: positive: Mood/affect nml, Disoriented to time, Weakness, Flat affect Palliative Care - POLST Patient has POLST: Yes POLST Status: DNR, Selective Treatment Pain: No pain Tiredness/Fatigue: Moderate (4-6) Drowsiness/Sedation: Mild (1-3) Nausea: None Anorexia: Mild (1-3) Dyspnea: Mild (1-3) Depression: Moderate (4-6) Anxiety: Mild (1-3) Feelings of wellbeing/Perceived Quality of Life: Fair, Acceptable, Worsening Sleep: Variable sleep pattern (up frequently to void) Constipation: Yes, Intermittent constipation Performance Status: Patient continues with balance problems increased lower extremity weakness and difficulty with getting from sitting to standing. He does use his cane, does try to stay active walks out daily to get the mail. But finds his current lifestyle is very sedentary, he does like to do's [employer] and [employer]. He is able to manage his ADLs. - Palliative Care Discussion: Patient very much enjoyed his visit with his family, he still remains somewhat incredulous "I am still here". He does find life somewhat difficult right now, has had a fall, they have a pin depending on the support of their neighbors. Javan has driven some, but is worried about this being able to continue. We did discuss possibly paratransit. Both his son and daughter want them to move closer to them so they can be of help. They feel pretty much overwhelmed at the thought of relocating. They do understand things are getting more difficult and particularly in their current setting with a bedroom upstairs and needing to navigate. They have difficulty translating information mostly because of memory, and increased stressors. Patient expresses mostly his feelings of frustration, with his memory and decreasing abilities. He reports he does have fluctuating depression, and it depends on the situation. Results - Lab Results Lab results reviewed: Yes Impression and Recommendations - Palliative Care Impression: This is a fragile 81-year-old gentleman who is on maintenance treatment for his AML, continues with questionable medication adherence. Patient continues to have both slow functional and cognitive decline, but still perceives his quality of life is acceptable. Palliative care continue provide support for symptom management and anticipatory guidance Recommendations/Counseling Done: 1. AML. Patient is currently on maintenance treatment, and review of his medications, concern he may have been taking his venetoclax when it is to be on hold, reviewed when supposed to start again, and put sticky on it in his box. We will continue to monitor. 2. Medication adherence. He changes been made, this is very difficult for patient, he is currently only to be on his antiviral, he has acyclovir in the home, call in clarification with [place] PA-C regarding instructions around valacyclovir, patient to take acyclovir instead as does have it in the home. Education list updated, removed medications patient is not to be taking, patient is unwilling to use Mediset's. He uses a box from which he takes it from, unclear if he is remembering second dose of his acyclovir. Patient is unwilling to trial a different method, will continue to work with him. 3. Fatigue. This is multifactorial, patient remains high risk for falls has not had any recent falls but environment with multiple stairs. He is using cane for balance, is trying to stay active though is quite sedentary given his routi ne. 4. BPH. Patient has fluctuating symptoms regarding his BPH, continues to have intermittent pain fullness, uses his phenozopyridine Several times a week. Patient does feel like he is emptying his bladder when he goes, just voids frequently. 5. Constipation. Patient unfortunately unable to recall regarding his bowel movements and his use of MiraLAX, he does have the MiraLAX near his kitchen sink to remind him to take it with his morning pills. Is unable to confirm adherence. 6. Advanced care planning. Continue to revisit patient's goals of care, with 's recent fall and difficulty overall, they are feeling somewhat overwhelmed. They do have some neighbors that are providing help with groceries and transportation. Will allow me to contact paratransit. 60 minutes with greater than 50% of this done in counseling, review of medications, coordination of care with oncology. Counseling for depression and adjustment illness.
== END 2021-05-20 11:01 | disposition home or self-care (01) ==
LOC: PC 11:00
PROVIDERS: ATTEND Nurse Practitioner Adult Health
DX: Z51.5 Encounter for palliative care (principal); R53.83 Other fatigue; N40.1 Benign prostatic hyperplasia with lower urinary tract symptoms; R35.0 Frequency of micturition; K59.00 Constipation, unspecified; C92.00 Acute myeloblastic leukemia, not having achieved remission; D70.9 Neutropenia, unspecified; Z79.899 Other long term (current) drug therapy; Z91.81 History of falling
CPT/HCPCS: 99350

== ENCOUNTER 2021-07-31 12:40 | Emergency (ER) | payer MEDICARE, OTHER ==
--- NOTE | 2021-07-31 13:22 | ED Physician Documentation ---
History of Present Illness - Stated complaint Stated Complaint: RT LEG PX - Chief complaint Chief Complaint: Ext Problem PD PAST MEDICAL HISTORY - Past Medical History Cardiovascular: Hypertension, [place] Respiratory: Sleep apnea, CPAP use Neuro: Other Endocrine/Autoimmune: None GI: GERD, Chronic constipation, Diverticulitis : Benign prostate hypertrophy, Other HEENT: Dental implants Psych: Anxiety Musculoskeletal: Osteoarthritis, Fatigue Derm: None - Past Surgical History Past Surgical History: Yes General: Bowel surgery Ortho: Knee replacement, Shoulder arthroplasty, Spine surgery Cardiovascular: Coronary stent Derm: Other - Present Medications Home Medications: Ambulatory Orders Medication Instructions Recorded Confirmed Doxazosin [Cardura] 2 mg PO DAILY MDD 4 mg 03/05/15 07/05/21 ondansetron HCL [Zofran] 8 mg PO Q6H PRN 05/05/20 07/05/21 Multivit-Min/FA/Lycopen/Lutein 1 tab PO DAILY 08/03/20 07/05/21 [Centrum Silver Men Tablet] Acyclovir [Zovirax] 400 mg PO BID 12/14/20 07/05/21 Venetoclax [Venclexta] 100 mg PO DAILY MDD 14days on 12/22/20 07/05/21 14days off polyethylene glycoL 3350 [Miralax] 17 gm PO DAILY PRN 12/30/20 07/05/21 guaiFENesin [Mucinex Fast-Max 20 ml PO BID PRN 03/21/21 07/05/21 Chest-Congest] Loratadine [Claritin] 10 mg PO DAILY PRN 05/20/21 07/05/21 Phenazopyridine [Pyridium] 100 mg PO TID PRN 05/21/21 07/05/21 Vit D3/Vit K2/Calc Frutoborate 125 mcg PO 07/21/21 [Move Free [id number]] - Allergies Allergies/Adverse Reactions: Allergies Allergy/AdvReac Type Severity Reaction Status Date / Time No Known Drug Allergies Allergy Verified 02/15/21 16:31 - Social History Does the pt smoke?: No Smoking Status: Never smoker Does the pt drink ETOH?: Yes Does the pt have substance abuse?: No - Immunizations Immunizations are current?: Yes - POLST Patient has POLST: Yes POLST Status: DNR Results - Vitals Vitals: Vital Signs - 24 hr 07/31/21 12:45 Temperature 36.5 C Heart Rate 70 Respiratory 16 Rate Blood Pressure 120/55 L O2 Saturation 98 Oxygen O2 Source Room air
--- NOTE | 2021-07-31 13:25 | XRAY Report ---
PROCEDURE: Tib/Fib RT INDICATIONS: Trauma TECHNIQUE: 2 views of the tibia and fibula were acquired. COMPARISON: None available. Correlation is made with report only from right knee plain films, 018. FINDINGS: Bones: No acute fractures or dislocations. Remote avulsion fracture fragments can be seen distal to the lateral malleolus. No suspicious bony le sions. Age-appropriate degenerative changes are seen throughout. Soft tissues: Calcification can be seen along the lateral right knee joint line, which may relate to chondrocalcinosis or meniscal calcification. IMPRESSION: No acute fracture can be seen. Please correlate with focal tenderness. If there is point tenderness (or other clinical concern for a fracture not seen on these plain films) then please consider a dedicated CT study or a short term fo llow up plain film series for further evaluation. Reviewed by: Zackary Villafana MD on 07/31/2021 12:24 PM [facility]GR[facility] Approved by: Zackary Villafana MD on 07/31/2021 12:24 PM INGRID Station ID: [id number]
--- NOTE | 2021-07-31 13:25 | ED Physician Documentation ---
History of Present Illness - Stated complaint Stated Complaint: RT LEG PX - Chief complaint Chief Complaint: Ext Problem - Additonal information Additional information: 81-year-old male who has a history of AML undergoing active chemotherapy presents the emergency department for evaluation of several days right knee pain. He points to a site at the medial knee that he states feels like he got kicked in the dod[place]. Denies any falls or trauma. No fevers or leg swelling. His is concerned he could have a deep vein thrombosis. He denies chest pain or shortness of air. Review of Systems Constitutional: denies: Fever, Chills Eyes: reports: Reviewed and negative Ears: reports: Reviewed and negative Throat: reports: Reviewed and negative Cardiac: reports: Reviewed and negative Respiratory: reports: Reviewed and negative GI: reports: Reviewed and negative : reports: Reviewed and negative Skin: reports: Reviewed and negative Musculoskeletal: reports: Extremity pain (right knee) PD PAST MEDICAL HISTORY - Past Medical History Cardiovascular: Hypertension, [place] Respiratory: Sleep apnea, CPAP use Neuro: Other Endocrine/Autoimmune: None GI: GERD, Chronic constipation, Diverticulitis : Benign prostate hypertrophy, Other HEENT: Dental implants Psych: Anxiety Musculoskeletal: Osteoarthritis, Fatigue Derm: None - Past Surgical History Past Surgical History: Yes General: Bowel surgery Ortho: Knee replacement, Shoulder arthroplasty, Spine surgery Cardiovascular: Coronary stent Derm: Other - Present Medications Home Medications: Ambulatory Orders Medication Instructions Recorded Confirmed Doxazosin [Cardura] 2 mg PO DAILY MDD 4 mg 03/05/15 07/05/21 ondansetron HCL [Zofran] 8 mg PO Q6H PRN 05/05/20 07/05/21 Multivit-Min/FA/Lycopen/Lutein 1 tab PO DAILY 08/03/20 07/05/21 [Centrum Silver Men Tablet] Acyclovir [Zovirax] 400 mg PO BID 12/14/20 07/05/21 Venetoclax [Venclexta] 100 mg PO DAILY MDD 14days on 12/22/20 07/05/21 14days off polyethylene glycoL 3350 [Miralax] 17 gm PO DAILY PRN 12/30/20 07/05/21 guaiFENesin [Mucinex Fast-Max 20 ml PO BID PRN 03/21/21 07/05/21 Chest-Congest] Loratadine [Claritin] 10 mg PO DAILY PRN 05/20/21 07/05/21 Phenazopyridine [Pyridium] 100 mg PO TID PRN 05/21/21 07/05/21 Vit D3/Vit K2/Calc Frutoborate 125 mcg PO 07/21/21 [Move Free [id number]] - Allergies Allergies/Adverse Reactions: Allergies Allergy/AdvReac Type Severity Reaction Status Date / Time No Known Drug Allergies Allergy Verified 02/15/21 16:31 - Social History Does the pt smoke?: No Smoking Status: Never smoker Does the pt drink ETOH?: Yes Does the pt have substance abuse?: No - Immunizations Immunizations are current?: Yes - POLST Patient has POLST: Yes POLST Status: DNR PD ED PE EXPANDED - General General: Alert, No acute distress - Cardiac Cardiac: Regular Rate, Radial strong equal, Pedal strong equal, Cap refill < 2 sec - Extremities Extremities: Right knee (no swelling, erythema. No laxity. no micromotion tenderness. Pain with ambulation only. ), Pedal Pulses Present. No: Pedal edema bilateral, Right calf TTP/cord, Left calf TTP/cord Results - Vitals Vitals: Vital Signs - 24 hr 07/31/21 12:45 Temperature 36.5 C Heart Rate 70 Respiratory 16 Rate Blood Pressure 120/55 L O2 Saturation 98 Oxygen O2 Source Room air - Rads (name of study) XR right tib/fib Radiology: Final report received (No acute fractures. Calcification can be seen along the lateral right knee joint line which may relate to chondrocalcinosis or meniscal calcification) US DVT Radiology: Final report received (No acute deep vein thrombus seen) PD MEDICAL DECISION MAKING - ED course Complexity details: reviewed results, re-evaluated patient, d/w patient ED course: 81-year-old male presents emergency department for evaluation of several days acute right knee pain. No history of falls or trauma. This gentleman is currently undergoing chemotherapy for AML. He points to a very sore spot on the right medial knee at the level of the tibia. The x-ray of the leg does not show an acute fracture though there is the development of some calcium deposits which may be related to the meniscal calcification versus chondrocalcinosis. An ultrasound DVT was performed to rule out a DVT and is reassuringly negative. Patient was given a one-time dose of Decadron here in the emergency department. I have given them referral to orthopedics for longer-term follow-up of what is likely to be an ongoing chronic complication. Patient does not have any fevers or micromotion tenderness thus despite the history of chemotherapy my suspicion for acute septic joint is rather low. Emergent return precautions discussed. Departure - Departure Disposition: Home, Self Care Clinical Impression: Right knee pain Qualifiers: Chronicity: acute Qualified Code(s): M25.561 - Pain in right knee Condition: Stable Record reviewed to determine appropriate education?: Yes Follow-Up: Anton Lopez MD [Provider Admit Priv/Credential] - Comments: Zeus you are seen in the emergency department today for several days pain on the inside of your right knee. The x-ray does not show a broken bone. However in the area where you are quite tender we do see some calcium deposits developing. These may be developing on the meniscus, ligaments or tendons. This can be quite uncomfortable. You were given a one-time dose of Decadron here in the emergency department which should help with pain and inflammation though in the long-term you may benefit from referral and follow-up to orthopedics to discuss if there are other surgical measures that can be done to help with this condition. The ultrasound of your leg did not show any blood clots. Continue follow-up with oncology and your primary care doctor as you otherwise would. Return to the ER if you develop any redness, have increased swelling fevers or any concerns of infection.
[2021-07-31] MEDS ORDERED: DEXAMETHASONE 10 MG/ML VIAL PO STA (15:15)
[2021-07-31] MEDS ORDERED: CHERRY SYRUP 10 ML UDC PO ONE (15:15)
[2021-07-31 15:26] VITALS: BP 120/57
--- NOTE | 2021-07-31 15:32 | Ultrasound Report ---
PROCEDURE: Duplex Ext Veins Right INDICATIONS: acute right lef/knee pain; chemo; r/o dvt TECHNIQUE: Real-time imaging, as well as color and pulse Doppler interrogation, were performed of the lower extr emity deep veins from the inguinal ligament to the popliteal fossa. COMPARISON: None. FINDINGS: The deep veins are normally compressible, and free of intraluminal thrombus. Color and pu lse Doppler demonstrate normal phasic intraluminal flow. There is normal augmentation response to di stal compression maneuver. Over the area of patient's pain, there is a subcutaneous soft tissue fluid collection measuring 10.2 cm in longitudinal dimension and 1.1 x 1.8 cm in transverse dimension. There are some internal calcif ication/debris. This fluid collection is seen laterally. Similar but smaller fluid collection seen me dially at the level of the knee measuring 0.5 x 0.6 x 0.7 cm. No hypervascularity/hyperemia. IMPRESSION: 1. No evidence for acute deep venous thrombosis of the right lower extremity. 2. Heterogeneous subcutaneous soft tissue fluid collections involving the medial and lateral aspect o f the right knee. The largest is noted bilaterally measuring 10.2 x 1.1 x 1.8 cm in size containing i nternal calcifications and debris. No evidence for hyperemia. Findings may represent sequela of prior trauma or evolution of chronic hematoma. Infectious etiology not excluded although there is no signi ficant vascularity or hyperemia. Reviewed by: Abelino Mancia MD on 07/31/2021 3:31 PM PDT Approved by: Abelino Mancia MD on 07/31/2021 3:31 PM PDT Station ID: [id number]
== END 2021-07-31 15:35 | disposition home or self-care (01) ==
LOC: ED 12:40
DX: M25.561 Pain in right knee (principal); C92.00 Acute myeloblastic leukemia, not having achieved remission; I10 Essential (primary) hypertension
CPT/HCPCS: 73590; 93971; 99283; 99284; A9270

== ENCOUNTER 2021-08-31 13:30 | Outpatient (CLI) | payer MEDICARE, OTHER ==
--- NOTE | 2021-08-31 17:30 | CONSULTATION NOTE ---
Palliative Care Follow Up - Referral Referring Provider: Dr. 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 He has been receiving azacitidine and Luc clocks, with increasing transfusion dependence and pancytopenia. There is concern for relapse, so currently on hold for treatment. He is due for scheduled bone marrow biopsy. Patient has been seen by palliative care on and off, in the context of medication adherence, advanced care planning, and psychosocial support. Patient has been ambivalent on and off about continued treatment, he does perceive his quality of life though is still acceptable. I am meeting with him today, to reestablish rapport and continue advance care planning. Both patient and are challenged with feeling overwhelmed with all the multiple appointments involved with Javan's care, as well as difficulty with medication adherence and understanding. Past Medical History: Past history of NH with drug-eluting stent placed 07/2019, history of myelodysplastic syndrome 12/11, hypertension, sleep apnea with CPAP use, MCI, vertigo, fatigue, GERD, chronic constipation, diverticulitis, BPH, dysuria, dental implants, anxiety, osteoarthritis, fatigue, bowel surgery, knee plate replacement, shoulder arthroplasty, and spine surgery Social History - Living Situation Living arrangement: At home Living Situation: With spouse/s.o. Support System: Patient lives with his sabi Desiree, they live in a trilevel home with significant fall risk potential. Their bedroom is upstairs, and have a sunken living room with several steps and multiple boxes. They have 2 daughters and a son, her son has taken over finances which is a huge stressor for them. He got cleaning assistance, continue needing to hire more help to provide support for the house. Patient served in the [employer], worked as a medical x-ray tech, he and his have been 55 years. They do have some new neighbors that are quite supportive, and helping them, family has been out for intermittent visits, and daughter is trying to help them manage by phone. Medications/Allergies - Medications Home Medications: Ambulatory Orders Medication Instructions Recorded Confirmed Doxazosin [Cardura] 2 mg PO DAILY MDD 4 mg 03/05/15 09/01/21 ondansetron HCL [Zofran] 8 mg PO Q6H PRN 05/05/20 09/01/21 Multivit-Min/FA/Lycopen/Lutein 1 tab PO DAILY 08/03/20 09/01/21 [Centrum Silver Men Tablet] Acyclovir [Zovirax] 400 mg PO BID 12/14/20 09/01/21 polyethylene glycoL 3350 [Miralax] 17 gm PO DAILY PRN 12/30/20 09/01/21 guaiFENesin [Mucinex Fast-Max 20 ml PO BID PRN 03/21/21 09/01/21 Chest-Congest] Loratadine [Claritin] 10 mg PO DAILY PRN 05/20/21 09/01/21 Phenazopyridine [Pyridium] 100 mg PO TID PRN 05/21/21 09/01/21 Cholecalciferol (Vitamin D3) 2,000 unit PO DAILY 09/01/21 09/01/21 [Vitamin D3] - Allergies Allergies/Adverse Reactions: Allergies Allergy/AdvReac Type Severity Reaction Status Date / Time No Known Drug Allergies Allergy Verified 08/17/21 15:07 Review of Systems - Constitutional Constitutional: reports: Fatigue (flucuating with counts; persistent), Weakness, Weight stable - Eyes Eyes: reports: Vision loss, Corrective lenses - Ears, Nose & Throat Ears, Nose & Throat: reports: Hearing loss, Nasal congestion (attributes to allergies; causes cough), Postnasal drainage (uses mucinex intermittently) - Cardiovascular Cardiovascular: reports: Irregular heart rate, Exertional dyspnea, Decr. ex ercise tolerance - Respiratory Respiratory: reports: Cough (with allergies), SOB with exertion, Other (CPAP). denies: SOB at rest - Gastrointestinal Gastrointestinal: reports: Constipation (intermittent; forgets to take miralax unable to quantify), Early satiety (eating smaller portions) - Genitourinary Genitourinary: reports: Dysuria (baseline; takes pyridium intermittently), Frequency - Musculoskeletal Musculoskeletal: reports: Back pain, Muscle aches, Stiffness, Muscle weakness, Joint pain (right knee pain improved), Assistive devices (uses cane), Other (c/o balance issues) - Integumentary Integumentary: reports: Dryness - Neurological Neurological: reports: General weakness, Memory problems (worsening; some insight), Abnormal gait - Psychiatric Psychiatric: reports: Anxiety - Hematologic/Lymphatic Hematologic/Lymph: reports: Anemia (last blood tranfusion 08/25) - All Other Systems All Other Systems: reports: Reviewed and negative Physical Exam - Vital Signs Temperature: 97.7 C Pulse Rate: 68 Respiratory Rate: 18 O2 Saturation: 100 Blood Pressure: 122/62 - Physical Exam General Appearance: positive: No acute distress, Alert. negative: Anxious (doing well today) Eyes Bilateral: positive: Normal inspection ENT: positive: No signs of dehydration Cardiovascular: positive: Regular rate & rhythm. negative: Bradycardia Respiratory: positive: No respiratory distress, Breath sounds nml Abdomen: positive: Soft Skin: positive: Pallor, Dryness Extremities: positive: No pedal edema. negative: Joint swelling (right knee without effusion) Neurologic/Psychiatric: positive: Mood/affect nml, Disoriented to time, Weakness, Flat affect Palliative Care - POLST Patient has POLST: Yes POLST Status: DNR, Selective Treatment Pain: Pain improved, Location (right knee) Feelings of wellbeing/Perceived Quality of Life: Good, Acceptable Sleep: Sleeps well (up at night to urinate) Constipation: Yes, Intermittent constipation (difficulty recalling frequency; does take miralax intermittently) Performance Status: Patient is very cautious with ambulation, uses a cane. Does not want a "fall". Is able to attend to his ADLs. Unfortunately their bedroom is on the upstairs, and several steps into the living room. He is able to ambulate short distances, though is able to do less which is quite frustrating for him. remains quite limited as well in her functional status, though both are not open to changing their current living situation.He does continue to have balance problems, with lower extremity weakness and difficulty from sitting to standing. He tries to stay engaged as far as his MCI he likes to do crossword's and sudoku. - Palliative Care Discussion: Met with and patient, regarding patient's current understanding of where his illness is. He reports he feels like he is "end-of-life" and he is doing okay with that. He feels like he has had extended time, and is very hesitant to move forward with the bone marrow biopsy. Wondering what this will add to the story, we did discuss in the context that may help with information as we are getting close to having less treatment options. He feels currently his quality of life is acceptable, he worries most about his , we did discuss her plan after he is gone. He did have a friend who suddenly and unexpectedly of the same disease AML. We were able to then talk about "what if scenarios" if patient had a slow decline, if he had an event, what kind of decisions he may need to be made and also the role of hospice. does not perceive children would be available to be assisting with caregiving at end-of-life, we also discussed given his pancytopenia, the decision around transfusions may or may not influence how quickly his end-of-life event goes. He is moving forward with a bone marrow biopsy, both he and his feel like he agreed because his daughters were gaining up on him, but did reinforce how helpful information is swimmer at this junction. Results - Lab Results Lab results reviewed: Yes Lab and Imaging Results: WBC 1.7, hemoglobin 8.6, Hematocrit 25.1, neutrophils 1.0, GFR 72, no other abnormality Impression and Recommendations - Palliative Care Impression: This is a fragile 81-year-old gentleman who is currently on hold from his maintenance treatment for his AML, continues to struggle with medication adherence that this is much simplified. Oncology team waiting on bone marrow biopsy for further treatment planning, patient has been pancytopenic and more transfusion dependent, concern for relapse. Patient is currently still satisfied with current quality of life, and is doing fairly well in the context of his ongoing slow functional and cognitive decline. Palliative care continue provide support for symptom management and anticipatory guidance until transition to hospice. Recommendations/Counseling Done: 1. AML. Patient is currently on hold from his maintenance treatment, has needed transfusions secondary to pancytopenia. He is feeling a little bit better after blood transfusion on 08/25. Does have pending bone marrow biopsy to further inform treatment plan. 2. Medication adherence. Patient currently using metal board to take his medications, reviewed his process. He has not been taking his acyclovir twice a day, added 2 times a day to his medical label for this. Reviewed his as needed medications, and indications. Continues to struggle in the context of memory. We will continue to follow particularly if needs to restart any prophylactic medications or Venetoclax. 3. BPH. Patient has fluctuating symptoms regarding his BPH, continues have intermittent pain, dysuria, and fullness. He reports is less distressful. 4. Constipation. Patient unfortunately continues to have difficulty recalling regarding bowel movements, does use his MiraLAX intermittently. Unable to confirm adherence though has not had any complications related to constipation. 5. Advanced care planning. Continuing to revisit patient's goals of care, part icularly with pending bone marrow biopsy which she is quite hesitant to follow through on. They had not heard, did call the clinic, given their difficulty with problem solving, Don R and, will follow up with them and help navigate this. They continue to feel overwhelmed, particularly lately with all the appointments and transfusions. They do have some neighbors that are providing help intermittently, would most likely benefit in the future from medical palliative care social services designee for resource planning. Will await outcome of biopsy. 60 minutes with greater than 50% of this done in counseling regarding anticipatory guidance, current situation and understanding, medication adherence, and coordination of care with oncology team
== END 2021-08-31 13:31 | disposition home or self-care (01) ==
LOC: PC 13:30
PROVIDERS: ATTEND Nurse Practitioner Adult Health
DX: Z51.5 Encounter for palliative care (principal); C92.00 Acute myeloblastic leukemia, not having achieved remission; D61.818 Other pancytopenia; K59.00 Constipation, unspecified; R53.1 Weakness; R41.3 Other amnesia; R26.9 Unspecified abnormalities of gait and mobility; N40.1 Benign prostatic hyperplasia with lower urinary tract symptoms; R35.0 Frequency of micturition; R30.0 Dysuria; G47.30 Sleep apnea, unspecified; R53.83 Other fatigue
CPT/HCPCS: 99350

== ENCOUNTER 2021-09-09 10:18 | Outpatient (CLI) | payer MEDICARE, OTHER ==
[2021-09-09] MEDS ORDERED: LACTATED RINGERS 1,000 ML IV ONE ×2 (10:52→12:10)
[2021-09-09 11:16] LABS: INR 1.1 (0.8-1.2); PARTIAL THROMBOPLASTIN TIME 32.2 secs (24.9-33.3); PT - PROTHROMBIN TIME 12.3 secs (9.9-12.6)
[2021-09-09] MEDS ORDERED: fentaNYL 100 MCG/2 ML VIAL ONE (11:33)
[2021-09-09] MEDS ORDERED: MIDAZOLAM 2 MG/2 ML VIAL ONE (11:33)
--- NOTE | 2021-09-09 12:28 | CT Report ---
PROCEDURE: BONE MARROW BX W/ASPIRATION Sedation analgesia for less than 30 minutes INDICATIONS: AML TECHNIQUE: The indications, alternatives, benefits, risks, and possible complications of the procedure were comm unicated to the patient. Informed written consent from the patient was obtained and placed in the art. Continuous EKG and hemodynamic monitoring was started by trained personnel. For radiation dose reduction, the following was used: automated exposure control, adjustment of mA and/or kV according to patient size. The patient was brought to the CT suite and freelance patternmaker spiral CT imaging was performed with localization g rid. The appropriate site for percutaneous access to the biopsy target was marked, was prepped and d raped sterilely, and was infused with local anaesthesia. Under CT guidance, a core biopsy trocar and needle set was advanced to the biopsy target, and specimen(s) were obtained. The trocar and needle were then removed, and the patient was sent for post-procedure monitoring. COMPARISON: None. FINDINGS: Biopsy site: Left iliac bone Needle: 11 gauge biopsy needle with introducer trocar. Number of passes: 1 Medications: 1% lidocaine for local anaesthesia. IV Fentanyl and Versed for conscious sedation for less than 30 minutes (see nursing record). Complications: None. IMPRESSION: Successful CT-guided biopsy of left iliac bone. This was a bone marrow biopsy, in which there was a core sample obtained. Additionally, samples were obtained in the presence of the bone [facility] technologist for appropriate preparation. Reviewed by: Tony Esteban MD on 09/09/2021 12:27 PM PST Approved by: Tony Esteban MD on 09/09/2021 12:27 PM PST Station ID: [id number]
[2021-09-09 12:35] LABS: HCT - HEMATOCRIT 23.2 % (42.0-52.0); HGB - HEMOGLOBIN 7.7 g/dL (14.0-18.0); MEAN CORPUSCULAR VOLUME 115.4 fL (80.0-94.0); RED BLOOD COUNT 2.01 10^6/uL (4.70-6.10)
[2021-09-09 12:36] LABS: EOSINOPHILS % (AUTO) 2.2 %; LYMPHOCYTES # (AUTO) 0.6 10^3/uL (1.5-3.5); LYMPHOCYTES % (AUTO) 41.2 %; MEAN CORPUSCULAR HEMOGLOBIN 38.3 pg (27.0-31.0); MEAN CORPUSCULAR HGB CONC 33.2 g/dL (32.0-36.0); MEAN PLATELET VOLUME 10.7 fL (7.4-11.4); MONOCYTES # (AUTO) 0.1 10^3/uL (0.0-1.0); MONOCYTES % (AUTO) 4.4 %; NEUTROPHILS # (AUTO) 0.7 10^3/uL (1.5-6.6); NEUTROPHILS % (AUTO) 52.2 %; PLT - PLATELET COUNT 44 10^3/uL (130-450); RED CELL DISTRIBUTION WIDTH 18.2 % (12.0-15.0); SLIDE REVIEW? Indicated
[2021-09-09 12:42] LABS: WHITE BLOOD COUNT 1.4 x10^3/uL (4.8-10.8)
[2021-09-09 13:00] LABS: DIFFERENTIAL COMMENT MANUAL=AUTO DIFF; PLATELET ESTIMATE, MANUAL DECREASED (<130,000) (NORMAL); PLATELET MORPHOLOGY NORMAL APPEARANCE (NORMAL); WBC MORPHOLOGY (MULTIPLE) NORMAL APPEARANCE (NORMAL)
[2021-09-09 13:35] VITALS: BP 126/68
[2021-09-09] MEDS ORDERED: LIDOCAINE-MPF 1% 30 ML VIAL ID PRN (15:17)
== END 2021-09-09 10:19 | disposition home or self-care (01) ==
LOC: DI 10:18
PROVIDERS: ATTEND Physician Assistant
DX: C92.00 Acute myeloblastic leukemia, not having achieved remission (principal)
CPT/HCPCS: 36415; 38222; 77012; 85025; 85610; 85730; 88237; 88264; 88280; 88377; J7120

== ENCOUNTER 2021-09-15 15:30 | Outpatient (CLI) | payer MEDICARE, OTHER ==
--- NOTE | 2021-09-15 17:08 | CONSULTATION NOTE ---
Palliative Care Follow Up - Referral Referring Provider: Dr. 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 He did receive a cytidine and venetoclax with a complete remission, cycle 07/06/2021. However the natural course of his AML situation it is he had a recent bone marrow and shows relapse. He had done fairly well, at this time he is not receiving any further labs or infusions, and still presents with significant pancytopenia. His most recent labs on 09/13 his WBCs were 0.6, hemoglobin 7.0, and hematocrit 20.8, with neutrophil count of 0.4. He does not present with any signs or symptoms of infection, we are waiting transition to hospice, patient has some understanding, continues to state "I will take this 1 day at a time" but his duration of life is most likely weeks. At this point awaiting transition to [facility], will continue his infection prophylactics of his level Floxin and his antifungal. Of concern is patient is quite elderly with his spouse who also has memory issues and health problems as well. They live in a house that has multiple levels and to stories up to their bedroom. He is high risk for falls, and family are far away. He does have increasing fluctuating issues with his memory with his low counts, this is made it difficult for the . Today he is ambulatory, denies any pain or shortness of breath, blood pressure presents at 112/52, his sats are 99%, and temp 97.5. I did speak with patient and and daughter Saima on the phone, patient is quite surprised when I talked about transitioning to "hospice". He reports nobody has mentioned that before, though we did discuss in the context of end-of-life, they are going to need support in his home setting. Both are appropriately tearful, and are hoping to make it through the holiday. 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 Support System: Patient lives with his sabi Desiree, they live in a trilevel home with significant fall risk potential. Their bedroom is upstairs, they have a sunken living room with several steps and it is very crowded with multiple boxes. is suffering from severe osteoarthritis, her memory continues to be challenged as well. They have been over 50 years, they have 2 daughters and a son. Her son is taken over finances, the daughters are aware of the seriousness of his condition, Saima is on the phone when we talk about hospice. Patient served in the [employer], worked as a medical x-ray tech, a have minimal support in the community, and family lives far away. Daughter is trying to help manage by phone, have sent them caregiving resources Medications/Allergies - Medications Home Medications: Ambulatory Orders Medication Instructions Recorded Confirmed Doxazosin [Cardura] 2 mg PO DAILY MDD 4 mg 03/05/15 09/15/21 Multivit-Min/FA/Lycopen/Lutein 1 tab PO DAILY 08/03/20 09/15/21 [Centrum Silver Men Tablet] Acyclovir [Zovirax] 400 mg PO BID 12/14/20 09/15/21 Cholecalciferol (Vitamin D3) 2,000 unit PO DAILY 09/01/21 09/15/21 [Vitamin D3] Fexofenadine HCl [Allergy Relief] 60 mg PO DAILY 09/08/21 09/15/21 Posaconazole [Noxafil] 300 mg PO DAILY 09/08/21 09/15/21 Sennosides [Senna] 8.6 mg PO DAILY 09/08/21 09/15/21 levoFLOXacin [Levofloxacin] 500 mg PO DAILY 09/15/21 09/15/21 - Allergies Allergies/Adverse Reactions: Allergies Allergy/AdvReac Type Severity Reaction Status Date / Time No Known Drug Allergies Allergy Verified 08/17/21 15:07 Review of Systems - Constitutional Constitutional: reports: Fatigue, Weakness, Weight stable - Eyes Eyes: reports: Vision loss, Corrective lenses - Ears, Nose & Throat Ears, Nose & Throat: reports: Hearing loss, Nasal congestion (attributes to allergies; causes cough), Postnasal drainage (uses mucinex intermittently) - Cardiovascular Cardiovascular: reports: Irregular heart rate, Exertional dyspnea, Decr. exercise tolerance - Respiratory Respiratory: reports: Cough (with allergies), SOB with exertion, Other (CPAP). denies: SOB at rest - Gastrointestinal Gastrointestinal: reports: Constipation (intermittent; forgets to take miralax unable to quantify), Early satiety (eating smaller portions) - Genitourinary Genitourinary: reports: Dysuria (baseline; takes pyridium intermittently), Frequency - Musculoskeletal Musculoskeletal: reports: Back pain, Muscle aches, Stiffness, Muscle weakness, Joint pain (right knee pain improved), Assistive devices (uses cane), Other (c/o balance issues) - Integumentary Integumentary: reports: Dryness - Neurological Neurological: reports: General weakness, Memory problems (worsening; worse with low counts), Abnormal gait - Psychiatric Psychiatric: reports: Anxiety - Hematologic/Lymphatic Hematologic/Lymph: reports: Anemia (hgb 7.0) - All Other Systems All Other Systems: reports: Reviewed and negative Physical Exam - Vital Signs Temperature: 97.5 C Pulse Rate: 62 Respiratory Rate: 18 O2 Saturation: 99 Blood Pressure: 112/52 (sitting) - Physical Exam General Appearance: positive: No acute distress, Alert. negative: Anxious (doing well today) Eyes Bilateral: positive: Normal inspection ENT: positive: No signs of dehydration Cardiovascular: positive: Regular rate & rhythm. negative: Bradycardia Respiratory: positive: No respiratory distress, Breath sounds nml Abdomen: positive: Soft Skin: positive: Pallor, Dryness, Bruising Extremities: positive: No pedal edema. negative: Joint swelling (right knee without effusion) Neurologic/Psychiatric: positive: Mood/affect nml, Disoriented to time, Weakness, Flat affect Palliative Care - POLST Patient has POLST: Yes POLST Status: DNR, Comfort Measures (updated) Pain: No pain Sleep: Sleeps well Constipation: Yes, Intermittent constipation Performance Status: Patient ambulatory with a cane, does appear breathless with exertion. Has been able to manage his ADLs. They try it and only go up and down the stairs once or twice a day. They do live in a trilevel, he is still able to get up to 2 or 3 stairs. We did discuss about putting the hospital bed in the living room. - Palliative Care Discussion: Patient was quite surprised by the word hospice, reports nobody had talked to him about this. We discussed that supportive care and transitioning to comfort with no further treatment and this would be the natural transition point. Patient reports he is "trying to take it a day at a time". He denies any anxiety or fearfulness. Desiree is appropriate tearful, but reports she has had friends who have gone to this as well. Saima on the phone is very worried about her parents recognizing patient's decline are worsening. I did introduce the hospice team as support for them, but that they will need to hire some usp care if they need further caregiving. I also expressed my concern about him being able to manage end-of-life symptoms without assistance, Saima and Suzi are both working on ways to come out and provide support. I are hoping it will be a little bit of time so that they can come be with their dad through transition of end-of-life. Counseling provided regarding hospice services, with the visiting nurse, bathing assist, equipment, medications for comfort for end-of-life, as well as someone to call if things are difficult. In the meantime we did complete a POLST with DN AR/DNI and comfort measures, they are going to posted on the door. I also gave surely the number for lift assist in case needed. Both are feeling very discouraged, are hopeful to have a quiet [place]. They have minimal support, their neighbors who had been supportive are gone. Daughters continue to provide support through home management. In the discussion regarding awaiting transition to hospice, we will continue antibiotics given his high risk for infection, at this point time he is no longer getting transfusions, unclear how quickly he will decline. Results - Lab Results Lab results reviewed: Yes Lab and Imaging Results: Labs from 09/14, WBC 0.9, hemoglobin 7.0, hematocrit 20.8, neutrophils 0.4, platelets 19,000 CMP in fairly good range total bili was 1.5, total protein is 6.1, EGFR is 58 Impression and Recommendations - Palliative Care Impression: This is a fragile 81-year-old gentleman who has transition back to AML, no trisha leonor in remission. Patient continues to be pancytopenia, and had been needing more transfusions. At this point in time there is no longer receiving labs and treatment. Patient does understand that there are no further treatment options, that he is "taking a day at a time" though does appear to have minimal understanding of the seriousness of his current condition. Patient continues to have both functional and cognitive decline, life is challenged with patient's dementia, which would help worsens with his worsening counts. Palliative care continue provide support for symptom management anticipatory guidance, awaiting transition to hospice with opening. Recommendations/Counseling Done: 1. AML. Patient is pancytopenic, is currently not receiving transfusions. Bone marrow biopsy shows him back in relapse. Patient with poor prognosis of mostly 3 weeks. Patient is high risk for an event as well as further functional decline related to his decreasing hemoglobin. In discussion with his daughter, weighing benefits and burdens of continuing prophylactic antibiotics, will continue with the antifungal and levofloxacin through the weekend, until transition to hospice as would like to avoid hospitalization for infection/sepsis. Will need hospice support through end-of-life symptoms. 2. Medication adherence. Patient currently using metal board to take his medications, reviewed his current list. Patient continues to struggle in the context of his memory, his gets overwhelmed with this as well, and does some reminding but is not aware of patient's medication list. 3. BPH. Patient has fluctuating symptoms regarding his BPH, and often has persistent dysuria and fullness. He reports this is less distressful, is currently taking a new supplement for this. 4. Anticipatory grief. Both patient and quite tearful, are worried about being a burden on her children, as it is the holidays and everybody is quite busy. 5. Advanced care planning. New POLST has been completed with comfort measures and DNR/DNI. They have places by the door. Did review lift assist versus 911 but focus of care is to be comfort. Unclear if going to be able to manage until daughters get here. Depends on patient's pace of decline. Anticipatory guidance provided, particularly to Saima and , patient had left the room. Hospice referral made. 60 minutes was given 50% of this done in counseling regarding transition to hospice, anticipatory guidance, coordination of care with daughter and hospice team.
== END 2021-09-15 15:31 | disposition home or self-care (01) ==
LOC: PC 15:30
PROVIDERS: ATTEND Nurse Practitioner Adult Health
DX: Z51.5 Encounter for palliative care (principal); C92.02 Acute myeloblastic leukemia, in relapse; D61.818 Other pancytopenia; F03.90 Unspecified dementia, unspecified severity, without behavioral disturbance, psychotic disturbance, mood disturbance, and anxiety; K59.00 Constipation, unspecified; N40.1 Benign prostatic hyperplasia with lower urinary tract symptoms; R35.0 Frequency of micturition; R30.0 Dysuria; Z79.899 Other long term (current) drug therapy; Z91.130 Patient's unintentional underdosing of medication regimen due to age-related debility; Z79.2 Long term (current) use of antibiotics; Z63.8 Other specified problems related to primary support group; Z60.8 Other problems related to social environment; Z66 Do not resuscitate
CPT/HCPCS: 99350